=== PATIENT | female | born 1935 | race Caucasian/White ===

== ENCOUNTER 2018-04-26 13:17 | Emergency (ER) | payer MEDICARE, OTHER ==
--- NOTE | 2018-04-26 14:27 | ED ---
Hypertension - HPI Summary HPI Summary: This patient is a 82 year old F presenting to [facility] accompanied by and son with a chief complaint of progressively worsening lightheadedness, weakness , and fatigue for the past couple months with a systolic blood pressure over 200 this morning. She additionally reports palpitations last night while lying down described as irregular and fast lasting roughly an hour. reports weight loss of 20 pounds in the past 2 months with decreased PO intake. She reports recent changes in HTN medications with Dr. Hurley she took a Losartan and hydrochlorothiazide this morning. reports Dr. Hernandez is currently working her up for her elevated blood pressure recent increase in fatigue and weakness. Systolic blood pressure is typically in the 120s or 130s, but has been elevated for the past month. Patient denies recent rhinorrhea, cough, dysuria, and changes in BMs. Denies CP , SOB and abdominal pain currently and during palpitations. Reports increased urinary frequency due to hydrochlorothiazide. states triage nurse noticed right facial droop. Patient states the facial droop began this morning but is unsure of when. She states she went to bed at midnight and woke up today at 08:00. - History of Current Complaint Chief Complaint: EDGeneral Stated Complaint: HIGH BP Time Seen by Provider: 04/26/18 14:05 Hx Obtained From: Patient, Family/Remote Sensing Surveyor Onset/Duration: Started Weeks Ago Timing: Constant Reported Blood Pressure Prior To Arrival: 200 Alleviating Factor(s): Nothing Associated Signs & Symptoms: Weakness, Dizziness, Other: - fatigue, lightheaded , facial droop Current Medications: Diuretic - Allergies/Home Medications Allergies/Adverse Reactions: Allergies Allergy/AdvReac Type Severity Reaction Status Date / Time No Known Allergies Allergy Verified 01/21/18 13:35 Home Medications: Home Medications Losartan TAB* [Cozaar TAB*] 50 mg PO DAILY 04/26/18 [History Confirmed 04/26/18] Triamterene/HCTZ 37.5-25 MG* [Dyazide CAP*] 1 cap PO DAILY 04/26/18 [History Confirmed 04/26/18] PMH/Surg Hx/FS Hx/Imm Hx Endocrine/Hematology History: Denies: Hx Diabetes Cardiovascular History: Reports: Hx Angina, Hx Coronary Artery Disease, Hx Hypercholesterolemia, Hx Hypertension Denies: Hx Myocardial Infarction, Hx Pacemaker/ICD, Hx Valvular Heart Disease Respiratory History: Denies: Hx Asthma, Hx Chronic Obstructive Pulmonary Disease (COPD) History: Denies: Hx Dialysis, Hx Renal Disease Musculoskeletal History: Denies: Hx Rheumatoid Arthritis, Hx Osteoporosis Sensory History: Reports: Hx Hearing Aid Neurological History: Comment Only: Other Neuro Impairments/Disorders - HEADACHES/DIZZNESS LAST WEAK. BETTER NOW PER PT. Psychiatric History: Denies: Hx Panic Disorder - Surgical History Surgery Procedure, Year, and Place: HYSTERECTOMY. CATARACTS. TONSILS Infectious Disease History: No Infectious Disease History: Denies: Traveled Outside the [place] in Last 30 Days - Family History Known Family History: Negative: Diabetes - Social History Alcohol Use: Occasionally Alcohol Amount: occasional glass of wine Substance Use Type: Reports: None Smoking Status (MU): Never Smoked Tobacco Review of Systems Positive: Fatigue Cardiovascular: Other - elevated BP Positive: Palpitations. Negative: Chest Pain Negative: Shortness Of Breath Negative: Abdominal Pain Positive: frequency. Negative: dysuria Neurological: Other - facial droop Positive: Weakness All Other Systems Reviewed And Are Negative: Yes Physical Exam - Summary Physical Exam Summary: General: well-appearing, no pain distress Skin: warm, color reflects adequate perfusion, dry Head: normal Eyes: EOMI, JENNIFER ENT: normal Neck: supple, nontender Respiratory: CTA, breath sounds present Cardiovascular: RRR Abdomen: soft, nontender Bowel: present Musculoskeletal: normal, strength/ROM intact Neurological: sensory/motor intact, A&O x3 Angle of right mouth is lower the left mouth with smiling both sides react normally and symmetrically Psychological: affect/mood appropriate Triage Information Reviewed: Yes Vital Signs On Initial Exam: Initial Vitals Temp Pulse Resp BP Pulse Ox 98.4 F 62 16 197/86 97 04/26/18 13:22 04/26/18 13:22 04/26/18 13:22 04/26/18 13:22 04/26/18 13:22 Vital Signs Reviewed: Yes - Monica Coma Scale Best Eye Response: 4 - Spontaneous Best Motor Response: 6 - Obeys Commands Best Verbal Response: 5 - Oriented Coma Scale Total: 15 Diagnostics - Vital Signs Vital Signs Temp Pulse Resp BP Pulse Ox 04/26/18 13:22 98.4 F 62 16 197/86 97 - Laboratory Result Diagrams: 04/26/18 14:42 04/26/18 14:42 Lab Statement: Any lab studies that have been ordered have been reviewed, and results considered in the medical decision making process. - Radiology CXR Radiology Interpretation Completed By: Radiologist - Cardiomegaly and probable mild pulmonary vascular congestion. ED Physician has reviewed this report. - CT Brain CT CT Interpretation Completed By: Radiologist - #. No CT evidence for an acute intracranial process. #. Mild involutional change and stigmata of chronic small vessel ischemic disease. #. Unchanged LEFT frontal meningioma. ED physician has reviewed this report - EKG 1338 Cardiac Rate: NL - 64 BPM EKG Rhythm: Sinus Rhythm Ectopy: None EKG Interpretation: flipped T in III, flat T in aVF Re-Evaluation - Re-Evaluation First Re-Evaluation Time: 16:30 Comment: Patient and family informed of results. Hypertension Course/Dx - Course Course Of Treatment: PATIENT'S RT ANGLE OF MOUTH LOWER THAN LEFT NOTED IN TRIAGE. THE PATIENT AND FAMILY HAD NOT NOTED THIS. FACE SYMMETRIC MOVEMENTS WITHOUT NUMBNESS. NO NEUROLOGIC DEFICIT. DISCUSSED RESULTS WITH THE PATIENT AND FAMILY. THE PLAN IS TO ADD AMLODIPINE 10MG PO DAILY AND F/U PMD; RETURN TO THE ED IF WORSE. - Diagnoses Provider Diagnoses: Lightheadedness, Hypertension Discharge - Sign-Out/Discharge Documenting (check all that apply): Patient Departure - Discharge Plan Condition: Stable Disposition: HOME Prescriptions: Amlodipine Besylate [Norvasc 10 mg tab] 10 mg PO DAILY #30 tab Patient Education Materials: Amlodipine (By mouth), Hypertension (ED), Lightheadedness (ED) Referrals: Marvin Hernandez MD [Primary Care Provider] - Additional Instructions: FOLLOW UP WITH YOUR DOCTOR. GET RECHECKED FOR ANY WORSENING OF YOUR CONDITION OR QUESTIONS OR CONCERNS. - Billing Disposition and Condition Condition: STABLE Disposition: Home - Attestation Statements Document Initiated by Scribe: Yes Documenting Scribe: Annmarie Cardenas Provider For Whom Scribe is Documenting (Include Credential): Clinton Moran MD Scribe Attestation: Annmarie Hunt scribed for Clinton Moran MD on 04/26/18 at 1854. Scribe Documentation Reviewed: Yes Provider Attestation: The documentation as recorded by the Annmarie batista accurately reflects the service I personally performed and the decisions made by me, Clinton Moran MD
[2018-04-26 14:59] LABS: ABS Basophils 0.1 10^3/ul (0-0.2); ABS Eosinophils 0 10^3/ul (0-0.6); ABS Lymphocytes 0.9 10^3/ul (1.0-4.8); ABS Monocytes 0.3 10^3/ul (0-0.8); ABS Neutrophils 6.6 10^3/ul (1.5-7.7); ABS Nucleated RBC 0 10^3/ul; Eosinophil % 0.3 % (0-6); Hematocrit 44 % (35-47); Hemoglobin 15.3 g/dl (12.0-16.0); Lymphocyte % 11.4 % (25-47); Mean Corpuscular HGB Conc 35 g/dl (31-36); Mean Corpuscular Hemoglobin 32 pg (27-31); Mean Corpuscular Volume 94 fL (80-97); Mean Platelet Volume 7.6 um3 (7.4-10.4); Nucleated Red Blood Cells % 0; Platelet Count 253 10^3/ul (150-450); Red Blood Count 4.71 10^6/ul (4.00-5.40); Red Cell Distribution Width 14 % (10.5-15); White Blood Count 7.9 10^3/ul (3.5-10.8)
[2018-04-26 15:07] LABS: INR 0.89 (0.77-1.02)
[2018-04-26 15:11] LABS: EGFR Non-African American 74.8 (>60)
--- NOTE | 2018-04-26 15:23 | RAD ---
Indication: Lightheaded. Irregular heartbeat. Comparison: September 29, 2013 Technique: Sitting AP chest 1507 hours Report: Mild prominence of the interstitial markings. Costochondral calcifications noted. Cardiomegaly. Mild prominence of the central pulmonary vasculature. Unremarkable mediastinal contours. IMPRESSION: #. Cardiomegaly and probable mild pulmonary vascular congestion.
--- OUTSIDE RECORDS SUMMARY | 2018-04-26 15:27 | XMS REPORT ---
:1935 External Reference #:[id number] Author Organization [employer] Address [address] [facility] [place] [address] [place] [address] Phone [phone] Care Team Providers Name Role Phone Marvin Hernandez MD Primary Care Physician Unavailable Payers Type Date Identification Numbers Payment Provider Subscriber Medicare Primary Effective: Policy Number: Medicare Shazia Jj 1998 [id number] PayID: [id number] [address] [place] [address] [employer] Policy Number: [id number] [employer] Agency [facility] Shazia Jj Group Number: [id number] [address] [place] [address] Problems Date Description Provider Status Onset: 06/13/2011 Palpitations Melanie June D.O. Active Onset: 05/23/2012 Rheumatoid arthritis Everett Moise M.D. Active Onset: 05/23/2012 Medications Chicken Dresser (Current) Use Everett Moise M.D. Active Encounter Onset: 05/23/2012 Hypercortisolism Everett Moise M.D. Active Onset: 06/18/2012 Benign essential hypertension Melanie June D.O. Active Onset: 05/22/2013 Atrial fibrillation Gómez Marti M.D. Active Onset: 07/27/2014 Polymyalgia rheumatica Varun Jo M.D. Active Onset: 07/27/2014 Disorder of adrenal gland Varun Jo M.D. Active Onset: 07/27/2014 Myalgia & Myositis Unspec Varun Jo M.D. Active Onset: 01/14/2015 Taking medication Everett Moise M.D. Active Onset: 04/07/2015 Steroid Everett Moise M.D. Active Family History Date Family Member(s) Problem(s) Comments General Arthritis Father due to Stroke () Mother due to Stroke () Mother Arthritis Paternal Grandfather due to Diabetes () Maternal Grandmother due to Stroke () - age 42 yrs Social History Type Date Description Comments Marital Status Lives With ETOH Use Occasionally consumes alcohol Smoking Patient has never smoked Recreational Drug Use Denies Drug Use Daily Caffeine Consumes on average 1 cup of regular coffee espresso per day Exercise Type/Frequency Exercises rarely Allergies, Adverse Reactions, Alerts Date Description Reaction Status Severity Comments 03/06/2007 Penicillin active diarrhea 09/18/2011 Methotrexate 2 days of fatigue active 09/18/2011 Hydroxychloroquine gi upset active Medications Medication Date Status Form Strength Qnty SIG Indications Ordering Provider Prednisone Active Tablets 1mg take 4 M06.09 Zsofia 8 tablets once Michael, CHRONIC CARE NURSE daily for 4 weeks, then 3 tabs for 4 week, then continue 2 tablets once daily M35.3 Z79.52 Flecainide 04/16/2013 Active Tablets 50mg 60tabs 1 1/2 Gómez Valencia Acetate tablet po Mendoza Marti bid Atenolol 02/05/2013 Active Tablets 25mg 90tabs 1 tab daily Other Ordering Provider Ambien Active Tablets 10mg 30tabs 1 po qhs prn Unknown sleep insomnia Lipitor Active Tablets 20mg 90tabs 1 by mouth Unknown po qd Clonazepam Active Tablets 1mg 15tabs 1-2 tab at Unknown night Multiple Active Tablets 1 by mouth Unknown Vitamin every day (occasionall y) Triamterene/Hy Active Capsules 37.5-25m daily Unknown drochlorothiaz g markos [facility] Vuong Wort Active daily Unknown Enalapril 01/29/2018 - Hx Tablets 5mg 90tabs 1 by mouth I10 Gómez Valencia Maleate 03/09/2018 every day Mendoza Marti Meclizine HCL 01/22/2018 - Hx Tablets 25mg 14tabs 1 tab po qd R42 Lise 03/09/2018 prn (pt not Imani, using) N.P. Prednisone 09/30/2017 - Hx Tablets 1mg 5 mg po M06 Zsofia 03/10/2018 daily (pt is .09 Michael, CHRONIC CARE NURSE taking 7mg for the last 2 days 01/29/2018) M35.3 Z79.52 Prednisone 05/27/2017 - Hx Tablets 5mg 90tabs take 1 tab po M06.09 Catalinaofia Michael, 09/30/2017 tablets once CHRONIC CARE NURSE daily M35.3 Z79.52 Prednisone 03/25/2017 - Hx Tablets 1mg 4 tab by mouth M06.09 Catalinaofia Michael, 05/27/2017 every day for 4 CHRONIC CARE NURSE weeks then 3 tabs for 4 weeks, 2 tabs for 4 weeks as directed M35.3 Z79.52 Ergocalciferol 03/19/2016 - Hx Capsules [id number] 1 tab by mouth Catalinaofia 06/19/2016 every week KELVIN Rodriguez Prednisone 11/16/2015 - Hx Tablets 1mg 150t Take 4 tabs by [place] Pack 03/25/2017 abs mouth every 09 Deonna, other day M.D. alternating with 3 tabs every other day(taking 5 mg qd 06/19/16) M35.3 Z79.52 Ergocalciferol 11/11/2015 - Hx Capsules [id number] 8caps 1 tab by Zsofia 03/19/2016 mouth KELVIN Rodriguez weekly for 8 weeks (Not Taking) Prednisone 01/13/2014 - Hx Tablets 2.5mg 90tabs 1 by mouth 714. Varun 01/28/2015 every day 0 Mendoza Jo Cholestyramine 11/24/2013 - Hx Packet 4gm 20units 1 packet Everett 12/24/2013 twice a day Mendoza Moise x 1o days Leflunomide 11/11/2013 - Hx Tablets 10mg 30tabs 1 by mouth Everett 12/24/2013 every day Mendoza Moise Prednisone 10/28/2013 - Hx Tablets 1mg 240tabs 4 tablets M06. Clarissaa 11/16/2015 po daily 09 KELVIN Rodriguez M35.3 Z79.52 Prednisone 07/31/2013 - Hx Tablets 5mg 70tabs 1 po qd.. Warren 07/31/2013 Mendoza Moise Prednisone 07/31/2013 - Hx Tablets 2.5mg 60tabs 1 po bid [address] [place] [address] 10/28/2013 4. Mendoza Moise 0 Prednisone 05/05/2013 - Hx Tablets 2.5mg 30tabs 1 po qd [address] [place] [address] 07/31/2013 4. Mendoza Moise 0 Prednisone 11/04/2012 - Hx Tablets 1mg 120tabs [address] [place] [address] 07/31/2013 Daily 4. Mendoza Moise 0 Enalapril Maleate 11/03/2012 - Hx Tablets 10mg 3 po qd Other 02/05/2013 Ordering Provider Metoprolol Succinate 10/01/2012 - Hx Tablets ER 25mg 60tabs 1 tablet Melanie ER 11/03/2012 24HR in Am; 1/2 Shaylee (12.5mg) D.O. in PM daily Nortriptyline HCL 05/23/2012 - Hx Capsules 10mg 30caps 1 hour Warren 06/18/2012 before hs Mendoza Moise Prednisone 05/23/2012 - Hx Tablets 2.5mg 60tabs 1 po bid [address] [place] [address] 11/04/2012 4. Mendoza Moise 0 Metoprolol Tartrate 09/18/2011 - Hx Tablets 25mg 100tabs 1 tablet Melanie 10/01/2012 in Am; 2 Shaylee (50mg) D.O. tablets in PM Metoprolol Succinate 08/24/2011 - Hx Tablets ER 25mg 30tabs Take One Melanie ER 09/18/2011 24HR Tablet By Shaylee, Mouth D.O. Daily Prednisone 07/31/2011 - Hx Tablets 5mg 30tabs 1 qd Warren 12/28/2011 Mendoza Moise Hydroxychloroquine 07/31/2011 - Hx Tablets 200mg 60tabs 1 po bid Everett Sulfate 09/18/2011 Mendoza Moise Prednisone 04/05/2011 - Hx Tablets 1mg 168tabs 4 mg qd [address] [place] [address] 05/23/2012 4. Mendoza Moise 0 Methotrexate 02/22/2011 - Hx Tablets 2.5mg 48tabs 2 tabs 1x Everett 09/18/2011 per week Mendoza Moise Methotrexate 01/18/2011 - Hx Tablets 2.5mg 15tabs 3 tabs 1x Everett 02/22/2011 per week Mendoza Moise Zithromax 01/18/2011 - Hx Tablets 250mg 11tabs take 2 on Everett 02/21/2011 day 1, Mendoza Moise then 1 daily Methotrexate 11/14/2010 - Hx Tablets 2.5mg 30tabs 6 tabs 1x Everett 12/20/2010 per week Mendoza Moise Aspirin 09/22/2010 - Hx Tablets 81mg 1 po qd Melanie 12/20/2010 Ezequiel June Toprol XL 08/16/2010 - Hx Tablets ER 25mg 60tabs daily Melanie 08/24/2011 24HR Ezequiel June Toprol XL 07/26/2010 - Hx Tablets ER 25mg 60tabs 1 po bid Melanie 09/22/2010 24HR Ezequiel June Lipitor 03/06/2007 - Hx Tablets 10mg 30tabs 1 PO QHS Michael NancyKimberly 09/22/2010 Mendoza Louis Enalapril Maleate 03/06/2007 - Hx Tablets 30mg one po qd Michael Montoya 07/26/2010 Mendoza Louis Premarin 03/06/2007 - Hx Tablets 0.9mg 1/2 qod Michael Montoya 06/18/2012 Mendoza Louis Clonazepam 03/06/2007 - Hx Tablets 1mg 1 and 1/2 Michael Montoya 12/24/2013 PO qd Mendoza Louis Enalapril Maleate - Hx Tablets 20mg 3 tablets Unknown 11/03/2012 daily Aspirin - Hx Tablets 325mg 2 po qd Unknown 09/22/2010 prn Oxycodone HCL - Hx Tablets 10mg 45tabs 1 tablet Unknown 12/20/2010 po up to 6 tablets per day Prednisone - Hx Tablets 5mg 32tabs 1/2 tab 71 Everett 04/05/2011 bid 4. Mendoza Moise 0 Methotrexate - Hx Tablets 15mg 1 x per Unknown 11/14/2010 week Lipitor - Hx Tablets 10mg 30tabs 1 po qhs Unknown 12/24/2013 Calcium 500 +D - Hx Tablets 500-40 1 po qd Unknown 12/24/2013 0mg-Un it Ibandronate Sodium - Hx Tablets 150mg 3tabs po monthly M8 Unknown 12/31/2017 5. 9 Enalapril Maleate - Hx Tablets 20mg 90tabs 1 tabs po Unknown 03/24/2017 qd Ciprofloxacin HCL - Hx Tablets 500mg 1 tablet Unknown 05/27/2014 po bid x 10 day Hydrocodone - Hx as needed Unknown 08/09/2015 Triamterene/Hydrochlo - Hx Capsules 37.5-2 1 daily Unknown rothiazide 01/20/2018 5mg Minocycline HCL - Hx Capsules 100mg Unknown 03/24/2017 Calcium 500 - Hx Tablets 500-25 1 by mouth Unknown 04/29/2017 0-200m every day g-mg-U nit Doxycycline Hyclate - Hx Capsules 100mg one tablet Unknown 05/01/2017 twice daily for 10 days. Sulfamethoxazole/Trim - Hx Tablets 800-16 1 by mouth Unknown ethoprim DS 05/27/2017 0mg twice a day for three days (05/10/17) Medications Administered in Office Medication Date Status Form Strength Qnty SIG Indications Ordering Provider Inj, Administered Injection Ramone Regcesaroson 017 Deonna, 0.1 MG M.D. Inj, Administered Injection Gómez Valencia Regadenoson, 017 Mendoza Marti 0.1 MG Technetium TC Administered Injection Gómez Valencia 99M 017 Mendoza Marti Tetrofosmin, Per Unit Dose Up To 40 Millicuries PPD Administered Injection Everett 011 Mendoza Moise PPD Administered Injection Nurse Visit 011 RH Immunizations CPT Code Status Date Vaccine Lot # [id number] Given 05/31/2011 Afluria Vaccine [id number] Vital Signs Date Vital Result Comment 04/09/2018 Height 67 inches 5'7" Weight 142.00 lb Heart Rate 62 /min BP Systolic Sitting 120 mmHg Lue reg cuff BP Diastolic Sitting 74 mmHg Lue reg cuff BP Systolic Standing 126 mmHg Lue BP Diastolic Standing 80 mmHg Lue Respiratory Rate 16 /min BMI (Body Mass Index) 22.2 kg/m2 Ejection Fraction 60-65% as of 01/2016 echo 03/10/2018 Height 67 inches 5'7" Weight 146.00 lb Heart Rate 67 /min BP Systolic Sitting 138 mmHg BP Diastolic Sitting 78 mmHg Pain Level 0 O2 % BldC Oximetry 97 % BMI (Body Mass Index) 22.9 kg/m2 01/29/2018 Height 64 inches 5'4" Weight 147.00 lb with shoes Heart Rate 64 /min BP Systolic Sitting 172 mmHg Rue reg cuff BP Diastolic Sitting 100 mmHg Rue reg cuff BP Systolic Standing 166 mmHg Rue reg cuff BP Diastolic Standing 98 mmHg Rue reg cuff Respiratory Rate 18 /min BMI (Body Mass Index) 25.2 kg/m2 Ejection Fraction 60-65% 02/03/2016-echo 01/22/2018 Weight 146.25 lb Heart Rate 72 /min BP Systolic Sitting 158 mmHg BP Diastolic Sitting 86 mmHg Respiratory Rate 24 /min Body Temperature 97.7 F O2 % BldC Oximetry 97 % 12/31/2017 Weight 151.00 lb Heart Rate 63 /min BP Systolic Sitting 156 mmHg BP Diastolic Sitting 84 mmHg Respiratory Rate 14 /min Body Temperature 98.3 F O2 % BldC Oximetry 97 % 09/30/2017 Weight 158.00 lb Heart Rate 63 /min BP Systolic Sitting 121 mmHg BP Diastolic Sitting 72 mmHg Respiratory Rate 14 /min Pain Level 4 05/27/2017 Weight 160.38 lb Heart Rate 64 /min BP Systolic Sitting 130 mmHg BP Diastolic Sitting 70 mmHg Pain Level 5 O2 % BldC Oximetry 95 % 05/03/2017 Height 67 inches 5'7" Weight 160.00 lb Heart Rate 64 /min BP Systolic Sitting 128 mmHg Lue reg cuff BP Diastolic Sitting 78 mmHg Lue reg cuff BP Systolic Standing 122 mmHg Lue BP Diastolic Standing 68 mmHg Lue Respiratory Rate 16 /min BMI (Body Mass Index) 25.1 kg/m2 Ejection Fraction 60-65% 02/03/16 03/28/2017 Height 67 inches 5'7" Weight 163.00 lb with sandals Heart Rate 70 /min BP Systolic Sitting 136 mmHg Lue reg cuff BP Diastolic Sitting 76 mmHg Lue reg cuff BP Systolic Standing 130 mmHg Lue reg cuff BP Diastolic Standing 80 mmHg Lue reg cuff Respiratory Rate 17 /min BMI (Body Mass Index) 25.5 kg/m2 Ejection Fraction 60-65% 02/03/2016-echo 03/25/2017 Weight 161.50 lb Heart Rate 67 /min BP Systolic Sitting 120 mmHg BP Diastolic Sitting 62 mmHg Pain Level 7 O2 % BldC Oximetry 95 % 12/17/2016 Weight 159.00 lb Heart Rate 66 /min BP Systolic Sitting 124 mmHg BP Diastolic Sitting 80 mmHg Respiratory Rate 15 /min Pain Level 6 O2 % BldC Oximetry 97 % 07/13/2016 Height 67 inches 5'7" Weight 158.50 lb with shoes Heart Rate 76 /min BP Systolic Sitting 140 mmHg Lue reg cuff BP Diastolic Sitting 100 mmHg Lue reg cuff BP Systolic Standing 148 mmHg Lue reg cuff BP Diastolic Standing 102 mmHg Lue reg cuff Body Temperature 99.9 F BMI (Body Mass Index) 24.8 kg/m2 06/19/2016 Height 67 inches 5'7" Weight 159.00 lb Heart Rate 76 /min BP Systolic Sitting 120 mmHg BP Diastolic Sitting 78 mmHg Body Temperature 98.8 F Pain Level 5 BMI (Body Mass Index) 24.9 kg/m2 03/19/2016 Height 67 inches 5'7" Weight 156.25 lb Heart Rate 72 /min BP Systolic 130 mmHg BP Diastolic 86 mmHg Respiratory Rate 14 /min Body Temperature 98.4 F Pain Level 2 BMI (Body Mass Index) 24.5 kg/m2 01/20/2016 Height 67 inches 5'7" Weight 155.00 lb Heart Rate 68 /min BP Systolic Sitting 148 mmHg LA reg cuff BP Diastolic Sitting 88 mmHg LA reg cuff BP Systolic Standing 154 mmHg LA BP Diastolic Standing 90 mmHg LA Respiratory Rate 18 /min BMI (Body Mass Index) 24.3 kg/m2 Ejection Fraction 55% 12/11/12 11/16/2015 Height 67 inches 5'7" Weight 157.00 lb Heart Rate 72 /min BP Systolic Sitting 120 mmHg BP Diastolic Sitting 70 mmHg Pain Level 4 BMI (Body Mass Index) 24.6 kg/m2 08/09/2015 Height 67 inches 5'7" Weight 155.00 lb Heart Rate 80 /min BP Systolic Sitting 130 mmHg BP Diastolic Sitting 80 mmHg Body Temperature 99.0 F Pain Level 2 BMI (Body Mass Index) 24.3 kg/m2 07/15/2015 Height 67 inches 5'7" Weight 155.00 lb no shoes Heart Rate 68 /min BP Systolic Sitting 128 mmHg Ra, reg cuff BP Diastolic Sitting 72 mmHg Ra, reg cuff BP Systolic Standing 120 mmHg Ra BP Diastolic Standing 76 mmHg Ra Respiratory Rate 16 /min BMI (Body Mass Index) 24.3 kg/m2 04/07/2015 Height 67 inches 5'7" Weight 161.00 lb Heart Rate 68 /min BP Systolic Sitting 120 mmHg BP Diastolic Sitting 68 mmHg Pain Level 2 BMI (Body Mass Index) 25.2 kg/m2 01/28/2015 Height 67 inches 5'7" Weight 157.00 lb with shoes Heart Rate 70 /min reg with ectopy BP Systolic Sitting 130 mmHg LA reg cuff BP Diastolic Sitting 90 mmHg LA reg cuff BP Systolic Standing 132 mmHg LA regcuff BP Diastolic Standing 90 mmHg LA regcuff Respiratory Rate 17 /min BMI (Body Mass Index) 24.6 kg/m2 Ejection Fraction 55% date 12/11/12 01/14/2015 Height 67 inches 5'7" Weight 159.12 lb Heart Rate 64 /min BP Systolic Sitting 124 mmHg BP Diastolic Sitting 70 mmHg Respiratory Rate 14 /min Pain Level 6 BMI (Body Mass Index) 24.9 kg/m2 07/27/2014 Height 67 inches 5'7" Weight 159.75 lb Heart Rate 60 /min BP Systolic Sitting 110 mmHg BP Diastolic Sitting 62 mmHg Pain Level 6 BMI (Body Mass Index) 25.0 kg/m2 07/01/2014 Height 67 inches 5'7" Weight 154.00 lb without shoes Heart Rate 68 /min BP Systolic Sitting 140 mmHg Ra reg cuff BP Diastolic Sitting 90 mmHg Ra reg cuff BP Systolic Standing 140 mmHg Ra reg cuf f BP Diastolic Standing 92 mmHg Ra reg cuf f Respiratory Rate 16 /min BMI (Body Mass Index) 24.1 kg/m2 05/04/2014 Height 63.5 inches 5'3.50" Weight 158.00 lb Heart Rate 66 /min BP Systolic 130 mmHg BP Diastolic 80 mmHg Pain Level 7 BMI (Body Mass Index) 27.5 kg/m2 01/13/2014 Height 63.5 inches 5'3.50" Weight 152.00 lb Heart Rate 67 /min BP Systolic Sitting 120 mmHg BP Diastolic Sitting 64 mmHg BMI (Body Mass Index) 26.5 kg/m2 12/25/2013 Height 63.5 inches 5'3.50" Weight 156.00 lb Heart Rate 72 /min BP Systolic Sitting 144 mmHg Ra reg cuff BP Diastolic Sitting 94 mmHg Ra reg cuff BP Systolic Standing 142 mmHg Ra BP Diastolic Standing 90 mmHg Ra Respiratory Rate 16 /min BMI (Body Mass Index) 27.2 kg/m2 10/28/2013 Weight 157.00 lb Heart Rate 78 /min BP Systolic Sitting 140 mmHg BP Diastolic Sitting 70 mmHg 07/31/2013 BP Systolic 144 mmHg BP Diastolic 86 mmHg 07/31/2013 Height 64 inches 5'4" Weight 160.00 lb Heart Rate 78 /min BP Systolic Sitting 122 mmHg BP Diastolic Sitting 68 mmHg BMI (Body Mass Index) 27.5 kg/m2 05/22/2013 Height 64 inches 5'4" Weight 157.00 lb Heart Rate 80 /min BP Systolic Sitting 148 mmHg Ra reg cuff BP Diastolic Sitting 92 mmHg Ra reg cuff BP Systolic Standing 140 mmHg Ra BP Diastolic Standing 88 mmHg Ra Respiratory Rate 16 /min BMI (Body Mass Index) 26.9 kg/m2 05/05/2013 Height 63 inches 5'3" Weight 159.00 lb Heart Rate 60 /min BP Systolic Sitting 110 mmHg BP Diastolic Sitting 70 mmHg BMI (Body Mass Index) 28.2 kg/m2 02/05/2013 Height 63 inches 5'3" Weight 158.00 lb Heart Rate 78 /min BP Systolic Sitting 128 mmHg BP Diastolic Sitting 76 mmHg BMI (Body Mass Index) 28.0 kg/m2 11/04/2012 Height 63 inches 5'3" Weight 162.00 lb Heart Rate 81 /min BP Systolic Sitting 121 mmHg BP Diastolic Sitting 76 mmHg BMI (Body Mass Index) 28.7 kg/m2 11/03/2012 Height 63 inches 5'3" Weight 162.25 lb Heart Rate 98 /min Regular BP Systolic Sitting 110 mmHg BP Diastolic Sitting 80 mmHg BMI (Body Mass Index) 28.7 kg/m2 10/01/2012 Height 63 inches 5'3" Weight 161.00 lb Heart Rate 78 /min BP Systolic Sitting 140 mmHg BP Diastolic Sitting 80 mmHg BMI (Body Mass Index) 28.5 kg/m2 09/24/2012 Height 63 inches 5'3" Weight 161.25 lb Heart Rate 70 /min Regular BP Systolic Sitting 110 mmHg BP Diastolic Sitting 70 mmHg BMI (Body Mass Index) 28.6 kg/m2 06/18/2012 Height 63 inches 5'3" Weight 162.00 lb Heart Rate 76 /min Regular BP Systolic Sitting 130 mmHg BP Diastolic Sitting 72 mmHg BMI (Body Mass Index) 28.7 kg/m2 05/23/2012 Height 63 inches 5'3" Weight 163.00 lb Heart Rate 74 /min BP Systolic Sitting 121 mmHg BP Diastolic Sitting 73 mmHg BMI (Body Mass Index) 28.9 kg/m2 12/28/2011 Height 63 inches 5'3" Weight 158.00 lb Heart Rate 79 /min BP Systolic Sitting 126 mmHg BP Diastolic Sitting 78 mmHg BMI (Body Mass Index) 28.0 kg/m2 11/09/2011 Height 63 inches 5'3" Weight 159.00 lb Heart Rate 76 /min BP Systolic Sitting 121 mmHg BP Diastolic Sitting 64 mmHg BMI (Body Mass Index) 28.2 kg/m2 09/18/2011 Weight 164.00 lb Heart Rate 82 /min BP Systolic 126 mmHg BP Diastolic 80 mmHg 07/31/2011 Height 64 inches 5'4" Weight 160.00 lb BP Systolic Sitting 122 mmHg BP Diastolic Sitting 73 mmHg BMI (Body Mass Index) 27.5 kg/m2 06/13/2011 Height 64 inches 5'4" Weight 161.00 lb Heart Rate 78 /min BP Systolic 132 mmHg BP Diastolic 84 mmHg BMI (Body Mass Index) 27.6 kg/m2 05/31/2011 Weight 160.00 lb Heart Rate 80 /min BP Systolic 100 mmHg BP Diastolic 70 mmHg 04/05/2011 Weight 160.00 lb Heart Rate 76 /min BP Systolic 120 mmHg BP Diastolic 80 mmHg 02/22/2011 Weight 159.00 lb Heart Rate 84 /min BP Systolic 120 mmHg BP Diastolic 72 mmHg 01/18/2011 Weight 161.00 lb Heart Rate 78 /min BP Systolic 124 mmHg BP Diastolic 72 mmHg 12/21/2010 Height 64 inches 5'4" Weight 158.00 lb Heart Rate 78 /min BP Systolic 134 mmHg BP Diastolic 84 mmHg BMI (Body Mass Index) 27.1 kg/m2 11/14/2010 Height 64 inches 5'4" Weight 153.00 lb Heart Rate 70 /min BP Systolic 130 mmHg BP Diastolic 84 mmHg BMI (Body Mass Index) 26.3 kg/m2 09/22/2010 Height 64 inches 5'4" Weight 154.25 lb Heart Rate 70 /min BP Systolic 120 mmHg BP Diastolic 80 mmHg Respiratory Rate 16 /min BMI (Body Mass Index) 26.5 kg/m2 08/16/2010 Height 64 inches 5'4" Weight 156.00 lb Heart Rate 74 /min BP Systolic Sitting 140 mmHg rechecked 134/88 BP Diastolic Sitting 100 mmHg rechecked 134/88 BP Systolic Standing 132 mmHg BP Diastolic Standing 84 mmHg BMI (Body Mass Index) 26.8 kg/m2 07/26/2010 Height 64 inches 5'4" Weight 155.00 lb Heart Rate 94 /min BP Systolic 110 mmHg BP Diastolic 80 mmHg BP Systolic Sitting 120 mmHg BP Diastolic Sitting 80 mmHg BP Systolic Standing 120 mmHg BP Diastolic Standing 82 mmHg Respiratory Rate 18 /min BMI (Body Mass Index) 26.6 kg/m2 03/06/2007 Height 64 inches 5'4" Weight 153.00 lb Heart Rate 77 /min BP Systolic Sitting 120 mmHg L BP Diastolic Sitting 80 mmHg L BMI (Body Mass Index) 26.3 kg/m2 Results Test Date Test Result H/L Range Note Basic Metabolic Panel 01/27/2018 Sodium 136 mmol/L Low 139-145 1 Potassium 3.8 mmol/L 3.5-5.0 1 Chloride 97 mmol/L Low 101-111 1 Co2 Carbon Dioxide 28 mmol/L 22-32 1 Anion Gap 11 mmol/L 2-11 1 Glucose 90 mg/dL 70-100 1 Blood Urea Nitrogen 15 mg/dL 6-24 1 Creatinine 0.95 mg/dL 0.51-0.95 1 BUN/Creatinine Ratio 15.8 8-20 1 Calcium 9.3 mg/dL 8.6-10.3 1 Egfr Non- 56.0 >60 1 Egfr 72.1 >60 1, 2 Laboratory test finding 09/30/2017 TSH (Thyroid Stim Horm) 2.46 mcIU/mL 0.34-5.60 Vitamin B12 322 pg/mL 180-914 3 Vitamin D Total 25(Oh) 19.5 ng/mL Low 20-50 CBC Auto Diff 09/30/2017 White Blood Count 8.9 10^3/uL 3.5-10.8 Red Blood Count 4.55 10^6/uL 4.0-5.4 Hemoglobin 14.8 g/dL 12.0-16.0 Hematocrit 42 % 35-47 Mean Corpuscular Volume 93 fL 80-97 Mean Corpuscular Hemoglobin 33 pg High 27-31 Mean Corpuscular HGB Conc 35 g/dL 31-36 Red Cell Distribution Width 14 % 10.5-15 Platelet Count 240 10^3/uL 150-450 Mean Platelet Volume 8 um3 7.4-10.4 Abs Neutrophils 6.3 10^3/uL 1.5-7.7 Abs Lymphocytes 1.7 10^3/uL 1.0-4.8 Abs Monocytes 0.8 10^3/uL 0-0.8 Abs Eosinophils 0.1 10^3/uL 0-0.6 Abs Basophils 0.1 10^3/uL 0-0.2 Abs Nucleated RBC 0 10^3/uL Granulocyte % 70.5 % 38-83 Lymphocyte % 19.4 % Low 25-47 Monocyte % 8.6 % 1-9 Eosinophil % 0.9 % 0-6 Basophil % 0.6 % 0-2 Nucleated Red Blood Cells % 0 Comp Metabolic Panel 09/30/2017 Sodium 133 mmol/L 133-145 Potassium 3.8 mmol/L 3.5-5.0 Chloride 94 mmol/L Low 101-111 Co2 Carbon Dioxide 34 mmol/L High 22-32 Anion Gap 5 mmol/L 2-11 Glucose 95 mg/dL 70-100 Blood Urea Nitrogen 14 mg/dL 6-24 Creatinine 1.05 mg/dL High 0.51-0.95 BUN/Creatinine Ratio 13.3 8-20 Calcium 9.2 mg/dL 8.6-10.3 Total Protein 5.8 g/dL Low 6.4-8.9 Albumin 3.8 g/dL 3.2-5.2 Globulin 2.0 g/dL 2-4 Albumin/Globulin Ratio 1.9 1-3 Total Bilirubin 0.40 mg/dL 0.2-1.0 Alkaline Phosphatase 42 U/L 34-104 Alt 12 U/L 7-52 Ast 16 U/L 13-39 Egfr Non- 49.9 >60 Egfr 64.2 >60 4 Laboratory test finding 09/30/2017 C Reactive Protein 1.28 mg/L < 5.00 5 Erythrocyte Sed Rate 8 mm/Hr 0-40 CBC Auto Diff 03/25/2017 White Blood Count 10.5 10^3/uL 3.5-10.8 6 Red Blood Count 4.77 10^6/uL 4.0-5.4 6 Hemoglobin 15.4 g/dL 12.0-16.0 6 Hematocrit 45 % 35-47 6 Mean Corpuscular Volume 95 fL 80-97 6 Mean Corpuscular Hemoglobin 32 pg High 27-31 6 Mean Corpuscular HGB Conc 34 g/dL 31-36 6 Red Cell Distribution Width 14 % 10.5-15 6 Platelet Count 252 10^3/uL 150-450 6 Mean Platelet Volume 8 um3 7.4-10.4 6 Abs Neutrophils 8.4 10^3/uL High 1.5-7.7 6 Abs Lymphocytes 1.3 10^3/uL 1.0-4.8 6 Abs Monocytes 0.5 10^3/uL 0-0.8 6 Abs Eosinophils 0.1 10^3/uL 0-0.6 6 Abs Basophils 0.1 10^3/uL 0-0.2 6 Abs Nucleated RBC 0 10^3/uL 6 Granulocyte % 80.0 % 38-83 6 Lymphocyte % 12.7 % Low 25-47 6 Monocyte % 5.2 % 1-9 6 Eosinophil % 0.7 % 0-6 6 Basophil % 1.4 % 0-2 6 Nucleated Red Blood Cells % 0 6 Comp Metabolic Panel 03/25/2017 Sodium 133 mmol/L 133-145 6 Potassium 4.1 mmol/L 3.5-5.0 6 Chloride 94 mmol/L Low 101-111 6 Co2 Carbon Dioxide 31 mmol/L 22-32 6 Anion Gap 8 mmol/L 2-11 6 Glucose 86 mg/dL 70-100 6 Blood Urea Nitrogen 14 mg/dL 6-24 6 Creatinine 0.83 mg/dL 0.51-0.95 6 BUN/Creatinine Ratio 16.9 8-20 6 Calcium 9.5 mg/dL 8.6-10.3 6 Total Protein 6.2 g/dL Low 6.4-8.9 6 Albumin 4.0 g/dL 3.2-5.2 6 Globulin 2.2 g/dL 2-4 6 Albumin/Globulin Ratio 1.8 1-3 6 Total Bilirubin 0.60 mg/dL 0.2-1.0 6 Alkaline Phosphatase 57 U/L 34-104 6 Alt 18 U/L 7-52 6 Ast 22 U/L 13-39 6 Egfr Non- 65.7 >60 6 Egfr 84.4 >60 6, 7 Laboratory test finding 03/25/2017 C Reactive Protein 1.82 mg/L < 5.00 6 , 8 Erythrocyte Sed Rate 8 mm/Hr 0-40 6, 9 Laboratory test 12/12/2016 TSH (Thyroid Stim 5.92 mcIU/mL High 0.34-5.60 10, 11 finding Horm) Vitamin D Total 25(Oh) 25.6 ng/mL Low 30-50 10, 12 Liver Function Panel 12/12/2016 Total Protein 5.8 g/dL Low 6.4-8.9 10 Albumin 3.9 g/dL 3.2-5.2 10 Globulin 1.9 g/dL Low 2-4 10 Albumin/Globulin Ratio 2.1 1-3 10 Total Bilirubin 0.60 mg/dL 0.2-1.0 10 Direct Bilirubin 0.10 mg/dL 0.03-0.18 10 Indirect Bilirubin 0.5 mg/dL 0.3-1.0 10 Alkaline Phosphatase 50 U/L 34-104 10 Alt 14 U/L 7-52 10 Ast 19 U/L 13-39 10 Lipid Profile (Trig/Chol/HDL) 12/12/2016 Triglycerides 66 mg/dL 10, 13 Cholesterol 175 mg/dL 10, 14 HDL Cholesterol 71.6 mg/dL 10, 15 LDL Cholesterol 90 mg/dL 10, 16 Laboratory test finding 12/12/2016 C Reactive Protein 1.26 mg/L < 5.00 10, 17 Erythrocyte Sed Rate 7 mm/Hr 0-40 10, 18 Comp Metabolic Panel 12/12/2016 Sodium 136 mmol/L 133-145 10 Potassium 3.5 mmol/L 3.5-5.0 10 Chloride 99 mmol/L Low 101-111 10 Co2 Carbon Dioxide 31 mmol/L 22-32 10 Anion Gap 6 mmol/L 2-11 10 Glucose 78 mg/dL 70-100 10 Blood Urea Nitrogen 14 mg/dL 6-24 10 Creatinine 0.81 mg/dL 0.51-0.95 10 BUN/Creatinine Ratio 17.3 8-20 10 Calcium 8.9 mg/dL 8.6-10.3 10 Total Protein 5.8 g/dL Low 6.4-8.9 10 Albumin 3.9 g/dL 3.2-5.2 10 Globulin 1.9 g/dL Low 2-4 10 Albumin/Globulin Ratio 2.1 1-3 10 Total Bilirubin 0.60 mg/dL 0.2-1.0 10 Alkaline Phosphatase 51 U/L 34-104 10 Alt 13 U/L 7-52 10 Ast 19 U/L 13-39 10 Egfr Non- 67.5 >60 10 Egfr 86.8 >60 10, 19 CBC Auto Diff 12/12/2016 White Blood Count 8.7 10^3/uL 3.5-10.8 10 Red Blood Count 4.72 10^6/uL 4.0-5.4 10 Hemoglobin 14.6 g/dL 12.0-16.0 10 Hematocrit 44 % 35-47 10 Mean Corpuscular Volume 93 fL 80-97 10 Mean Corpuscular Hemoglobin 31 pg 27-31 10 Mean Corpuscular HGB Conc 33 g/dL 31-36 10 Red Cell Distribution Width 15 % 10.5-15 10 Platelet Count 208 10^3/uL 150-450 10 Mean Platelet Volume 9 um3 7.4-10.4 10 Abs Neutrophils 5.6 10^3/uL 1.5-7.7 10 Abs Lymphocytes 2.1 10^3/uL 1.0-4.8 10 Abs Monocytes 0.7 10^3/uL 0-0.8 10 Abs Eosinophils 0.2 10^3/uL 0-0.6 10 Abs Basophils 0.1 10^3/uL 0-0.2 10 Abs Nucleated RBC 0 10^3/uL 10 Granulocyte % 64.0 % 38-83 10 Lymphocyte % 24.3 % Low 25-47 10 Monocyte % 8.1 % 1-9 10 Eosinophil % 2.7 % 0-6 10 Basophil % 0.9 % 0-2 10 Nucleated Red Blood Cells % 0 10 Laboratory test finding 06/15/2016 Erythrocyte Sed Rate 9 mm/Hr 0-40 20 , 21 CBC Auto Diff 06/15/2016 White Blood Count 9.6 10^3/uL 3.5-10.8 20 Red Blood Count 4.67 10^6/uL 4.0-5.4 20 Hemoglobin 14.5 g/dL 12.0-16.0 20 Hematocrit 43 % 35-47 20 Mean Corpuscular Volume 93 fL 80-97 20 Mean Corpuscular Hemoglobin 31 pg 27-31 20 Mean Corpuscular HGB Conc 33 g/dL 31-36 20 Red Cell Distribution Width 14 % 10.5-15 20 Platelet Count 234 10^3/uL 150-450 20 Mean Platelet Volume 9 um3 7.4-10.4 20 Abs Neutrophils 7.2 10^3/uL 1.5-7.7 20 Abs Lymphocytes 1.4 10^3/uL 1.0-4.8 20 Abs Monocytes 0.8 10^3/uL 0-0.8 20 Abs Eosinophils 0.2 10^3/uL 0-0.6 20 Abs Basophils 0.1 10^3/uL 0-0.2 20 Abs Nucleated RBC 0.01 10^3/uL 20 Granulocyte % 75.0 % 38-83 20 Lymphocyte % 14.3 % Low 25-47 20 Monocyte % 8.0 % 1-9 20 Eosinophil % 2.1 % 0-6 20 Basophil % 0.6 % 0-2 20 Nucleated Red Blood Cells % 0.1 20 Laboratory test finding 06/15/2016 C Reactive Protein 1.74 mg/L < 5.00 20, 22 Comp Metabolic Panel 06/15/2016 Sodium 139 mmol/L 133-145 20 Potassium 4.0 mmol/L 3.5-5.0 20 Chloride 103 mmol/L 101-111 20 Co2 Carbon Dioxide 31 mmol/L 22-32 20 Anion Gap 5 mmol/L 2-11 20 Glucose 75 mg/dL 70-100 20 Blood Urea Nitrogen 13 mg/dL 6-24 20 Creatinine 0.88 mg/dL 0.51-0.95 20 BUN/Creatinine Ratio 14.8 8-20 20 Calcium 9.0 mg/dL 8.6-10.3 20 Total Protein 5.7 g/dL Low 6.4-8.9 20 Albumin 3.8 g/dL 3.2-5.2 20 Globulin 1.9 g/dL Low 2-4 20 Albumin/Globulin Ratio 2.0 1-3 20 Total Bilirubin 0.40 mg/dL 0.2-1.0 20 Alkaline Phosphatase 48 U/L 34-104 20 Alt 13 U/L 7-52 20 Ast 18 U/L 13-39 20 Egfr Non- 61.5 >60 20 Egfr 79.1 >60 20, 23 Laboratory test finding 02/02/2016 Erythrocyte Sed Rate 8 mm/Hr 0-40 24 , 25 CBC Auto Diff 02/02/2016 White Blood Count 6.1 10^3/uL 3.5-10.8 24 Red Blood Count 4.97 10^6/uL 4.0-5.4 24 Hemoglobin 15.3 g/dL 12.0-16.0 24 Hematocrit 46 % 35-47 24 Mean Corpuscular Volume 92 fL 80-97 24 Mean Corpuscular Hemoglobin 31 pg 27-31 24 Mean Corpuscular HGB Conc 34 g/dL 31-36 24 Red Cell Distribution Width 14 % 10.5-15 24 Platelet Count 206 10^3/uL 150-450 24 Mean Platelet Volume 8 um3 7.4-10.4 24 Abs Neutrophils 3.4 10^3/uL 1.5-7.7 24 Abs Lymphocytes 2.0 10^3/uL 1.0-4.8 24 Abs Monocytes 0.5 10^3/uL 0-0.8 24 Abs Eosinophils 0.1 10^3/uL 0-0.6 24 Abs Basophils 0.1 10^3/uL 0-0.2 24 Abs Nucleated RBC 0 10^3/uL 24 Granulocyte % 54.7 % 38-83 24 Lymphocyte % 33.0 % 25-47 24 Monocyte % 8.9 % 1-9 24 Eosinophil % 2.0 % 0-6 24 Basophil % 1.4 % 0-2 24 Nucleated Red Blood Cells % 0.1 24 Laboratory test finding 02/02/2016 C Reactive Protein 1.45 mg/L < 5.00 24, 26 Vitamin D Total 25(Oh) 35.8 ng/mL 30-50 24, 27 Basic Metabolic Panel 02/02/2016 Sodium 138 mmol/L 133-145 24 Potassium 3.8 mmol/L 3.5-5.0 24 Chloride 103 mmol/L 101-111 24 Co2 Carbon Dioxide 30 mmol/L 22-32 24 Anion Gap 5 mmol/L 2-11 24 Glucose 87 mg/dL 70-100 24 Blood Urea Nitrogen 13 mg/dL 6-24 24 Creatinine 0.83 mg/dL 0.51-0.95 24 BUN/Creatinine Ratio 15.7 8-20 24 Calcium 9.2 mg/dL 8.6-10.3 24 Egfr Non- 65.8 >60 24 Egfr 84.6 >60 24, 28 Comp Metabolic Panel 11/10/2015 Sodium 139 mmol/L 133-145 Potassium 4.3 mmol/L 3.5-5.0 Chloride 102 mmol/L 101-111 Co2 Carbon Dioxide 30 mmol/L 22-32 Anion Gap 7 mmol/L 2-11 Glucose 109 mg/dL High 70-100 Blood Urea Nitrogen 14 mg/dL 6-24 Creatinine 0.81 mg/dL 0.51-0.95 BUN/Creatinine Ratio 17.3 8-20 Calcium 9.6 mg/dL 8.6-10.3 Total Protein 6.2 g/dL Low 6.4-8.9 Albumin 4.1 g/dL 3.2-5.2 Globulin 2.1 g/dL 2-4 Albumin/Globulin Ratio 2.0 1-3 Total Bilirubin 0.40 mg/dL 0.2-1.0 Alkaline Phosphatase 62 U/L 34-104 Alt 13 U/L 7-52 Ast 19 U/L 13-39 Egfr Non- 67.7 >60 Egfr 87.1 >60 29 Laboratory test finding 11/10/2015 C Reactive Protein 6.87 mg/L High < 5.00 30 Vitamin D Total 25(Oh) 24.7 ng/mL Low 30-50 CBC Auto Diff 11/10/2015 White Blood Count 9.9 10^3/uL 3.5-10.8 Red Blood Count 4.87 10^6/uL 4.0-5.4 Hemoglobin 15.0 g/dL 12.0-16.0 Hematocrit 45 % 35-47 Mean Corpuscular Volume 93 fL 80-97 Mean Corpuscular Hemoglobin 31 pg 27-31 Mean Corpuscular HGB Conc 33 g/dL 31-36 Red Cell Distribution Width 14 % 10.5-15 Platelet Count 232 10^3/uL 150-450 Mean Platelet Volume 9 um3 7.4-10.4 Abs Neutrophils 8.2 10^3/uL High 1.5-7.7 Abs Lymphocytes 1.2 10^3/uL 1.0-4.8 Abs Monocytes 0.4 10^3/uL 0-0.8 Abs Eosinophils 0 10^3/uL 0-0.6 Abs Basophils 0.1 10^3/uL 0-0.2 Abs Nucleated RBC 0 10^3/uL Granulocyte % 83.2 % High 38-83 Lymphocyte % 11.8 % Low 25-47 Monocyte % 4.0 % 1-9 Eosinophil % 0.4 % 0-6 Basophil % 0.6 % 0-2 Nucleated Red Blood Cells % 0 Laboratory test finding 11/10/2015 Erythrocyte Sed Rate 14 mm/Hr 0-40 Urine Culture And 11/10/2015 Urine Culture SEE RESULT BELOW 31 Sensitivities Laboratory test finding 07/13/2015 C Reactive Protein 2.45 mg/L < 5.00 32 Erythrocyte Sed Rate 12 mm/Hr 0-40 Immunoglobulins Serum Quant 07/13/2015 Immunoglobulin G 558 mg/dL 767 - 1590 33 Immunoglobulin M 62 mg/dL 37 - 286 Immunoglobulin A 130 mg/dL 61 - 356 Comp Metabolic Panel 07/13/2015 Sodium 132 mmol/L Low 133-145 Potassium 4.2 mmol/L 3.5-5.0 Chloride 97 mmol/L Low 101-111 Co2 Carbon Dioxide 29 mmol/L 22-32 Anion Gap 6 mmol/L 2-11 Glucose 143 mg/dL High 70-100 Blood Urea Nitrogen 16 mg/dL 6-24 Creatinine 0.81 mg/dL 0.51-0.95 BUN/Creatinine Ratio 19.8 8-20 Calcium 9.1 mg/dL 8.6-10.3 Total Protein 5.9 g/dL Low 6.4-8.9 Albumin 3.8 g/dL 3.2-5.2 Globulin 2.1 g/dL 2-4 Albumin/Globulin Ratio 1.8 1-3 Total Bilirubin 0.40 mg/dL 0.2-1.0 Alkaline Phosphatase 53 U/L 34-104 Alt 13 U/L 7-52 Ast 18 U/L 13-39 Egfr Non- 67.7 >60 Egfr 87.1 >60 34 CBC Auto Diff 07/13/2015 White Blood Count 7.9 10^3/uL 4.8-10.8 Red Blood Count 4.66 10^6/uL 4.0-5.4 Hemoglobin 14.6 g/dL 12.0-16.0 Hematocrit 44 % 35-47 Mean Corpuscular Volume 94 fL 80-97 Mean Corpuscular Hemoglobin 31 pg 27-31 Mean Corpuscular HGB Conc 33 g/dL 31-36 Red Cell Distribution Width 14 % 10.5-15 Platelet Count 255 10^3/uL 150-450 Mean Platelet Volume 9 um3 7.4-10.4 Abs Neutrophils 5.8 10^3/uL 1.5-7.7 Abs Lymphocytes 1.4 10^3/uL 1.0-4.8 Abs Monocytes 0.5 10^3/uL 0-0.8 Abs Eosinophils 0.1 10^3/uL 0-0.6 Abs Basophils 0.1 10^3/uL 0-0.2 Abs Nucleated RBC 0 10^3/uL Granulocyte % 73.1 % 38-83 Lymphocyte % 18.0 % Low 25-47 Monocyte % 6.3 % 1-9 Eosinophil % 1.1 % 0-6 Basophil % 1.5 % 0-2 Nucleated Red Blood Cells % 0 CBC Auto Diff 01/31/2015 White Blood Count 6.0 10^3/uL 4.8-10.8 Red Blood Count 4.82 10^6/uL 4.0-5.4 Hemoglobin 15.0 g/dL 12.0-16.0 Hematocrit 45 % 35-47 Mean Corpuscular Volume 94 fL 80-97 Mean Corpuscular Hemoglobin 31 pg 27-31 Mean Corpuscular HGB Conc 33 g/dL 31-36 Red Cell Distribution Width 14 % 10.5-15 Platelet Count 228 10^3/uL 150-450 Mean Platelet Volume 8 um3 7.4-10.4 Abs Neutrophils 3.0 10^3/uL 1.5-7.7 Abs Lymphocytes 2.3 10^3/uL 1.0-4.8 Abs Monocytes 0.5 10^3/uL 0-0.8 Abs Eosinophils 0.1 10^3/uL 0-0.6 Abs Basophils 0.1 10^3/uL 0-0.2 Abs Nucleated RBC 0.01 10^3/uL Granulocyte % 50.0 % 38-83 Lymphocyte % 38.2 % 25-47 Monocyte % 8.7 % 1-9 Eosinophil % 2.2 % 0-6 Basophil % 0.9 % 0-2 Nucleated Red Blood Cells % 0.1 Comp Metabolic Panel 01/31/2015 Sodium 138 mmol/L 133-145 Potassium 3.9 mmol/L 3.5-5.0 Chloride 104 mmol/L 101-111 Co2 Carbon Dioxide 30 mmol/L 22-32 Anion Gap 4 mmol/L 2-11 Glucose 84 mg/dL 70-100 Blood Urea Nitrogen 16 mg/dL 6-24 Creatinine 0.82 mg/dL 0.51-0.95 BUN/Creatinine Ratio 19.5 8-20 Calcium 9.0 mg/dL 8.6-10.3 Total Protein 5.9 g/dL Low 6.4-8.9 Albumin 3.9 g/dL 3.2-5.2 Globulin 2.0 g/dL 2-4 Albumin/Globulin Ratio 2.0 1-3 Total Bilirubin 0.60 mg/dL 0.2-1.0 Alkaline Phosphatase 58 U/L 34-104 Alt 14 U/L 7-52 Ast 17 U/L 13-39 Egfr Non- 66.9 >60 Egfr 86.0 >60 35 Laboratory test finding 01/31/2015 C Reactive Protein 2.09 mg/L < 5.00 36 Erythrocyte Sed Rate 8 mm/Hr 0-40 Aditi (Antinuclear Antibodies) Negative Negative Velma Screen Negative Negative 37 Anti Dna (Double Stranded Dna) Negative Negative Immunoglobulins Serum Quant 01/31/2015 Immunoglobulin G 618 mg/dL 767 - 1590 38 Immunoglobulin M 95 mg/dL 37 - 286 Immunoglobulin A 125 mg/dL 61 - 356 Laboratory test finding 01/31/2015 Rheumatoid Factor <15 IU/mL <15 39 Cyclic Citrullinated Pep Igg <15.6 U 40 CBC No Diff 12/25/2014 White Blood Count 5.9 10^3/uL 4.8-10.8 Red Blood Count 4.83 10^6/uL 4.0-5.4 Hemoglobin 15.4 g/dL 12.0-16.0 Hematocrit 45 % 35-47 Mean Corpuscular Volume 94 fL 80-97 Mean Corpuscular Hemoglobin 32 pg High 27-31 Mean Corpuscular HGB Conc 34 g/dL 31-36 Red Cell Distribution Width 14 % 10.5-15 Platelet Count 231 10^3/uL 150-450 Mean Platelet Volume 8 um3 7.4-10.4 Laboratory test finding 12/25/2014 Erythrocyte Sed Rate 9 mm/Hr 0-40 Comp Metabolic Panel 12/25/2014 Sodium 139 mmol/L 133-145 Potassium 3.9 mmol/L 3.5-5.0 Chloride 103 mmol/L 101-111 Co2 Carbon Dioxide 31 mmol/L 22-32 Anion Gap 5 mmol/L 2-11 Glucose 88 mg/dL 70-100 Blood Urea Nitrogen 13 mg/dL 6-24 Creatinine 0.82 mg/dL 0.51-0.95 BUN/Creatinine Ratio 15.9 8-20 Calcium 9.0 mg/dL 8.6-10.3 Total Protein 5.7 g/dL Low 6.4-8.9 Albumin 3.9 g/dL 3.2-5.2 Globulin 1.8 g/dL Low 2-4 Albumin/Globulin Ratio 2.2 1-3 Total Bilirubin 0.60 mg/dL 0.2-1.0 Alkaline Phosphatase 52 U/L 34-104 Alt 13 U/L 7-52 Ast 19 U/L 13-39 Egfr Non- 66.9 >60 Egfr 86.0 >60 41 Laboratory test finding 12/25/2014 Cortisol 15.96 g/dL 42 C Reactive Protein 2.32 mg/L < 5.00 43 Acth 67 pg/mL 44 Laboratory test finding 06/15/2014 Erythrocyte Sed Rate 15 mm/Hr 0-40 CBC Auto Diff 06/15/2014 White Blood Count 7.4 10^3/uL 4.8-10.8 Red Blood Count 4.87 10^6/uL 4.0-5.4 Hemoglobin 15.1 g/dL 12.0-16.0 Hematocrit 45 % 35-47 Mean Corpuscular Volume 93 fL 80-97 Mean Corpuscular Hemoglobin 31 pg 27-31 Mean Corpuscular HGB Conc 34 g/dL 31-36 Red Cell Distribution Width 14 % 10.5-15 Platelet Count 264 10^3/uL 150-450 Mean Platelet Volume 8 um3 7.4-10.4 Abs Neutrophils 4.0 10^3/uL 1.5-7.7 Abs Lymphocytes 2.6 10^3/uL 1.0-4.8 Abs Monocytes 0.6 10^3/uL 0-0.8 Abs Eosinophils 0.2 10^3/uL 0-0.6 Abs Basophils 0.1 10^3/uL 0-0.2 Abs Nucleated RBC 0.01 10^3/uL Granulocyte % 53.4 % 38-83 Lymphocyte % 35.1 % 25-47 Monocyte % 8.1 % 1-9 Eosinophil % 2.4 % 0-6 Basophil % 1.0 % 0-2 Nucleated Red Blood Cells % 0.1 Laboratory test finding 06/15/2014 C Reactive Protein 8.86 mg/L High < 5.00 45 Lipid Profile (Trig/Chol/HDL) 06/15/2014 Triglycerides 87 mg/dL 46 Cholesterol 201 mg/dL 47 HDL Cholesterol 55.2 mg/dL 48 LDL Cholesterol 128 mg/dL 49 Comp Metabolic Panel 06/15/2014 Sodium 139 mmol/L 133-145 Potassium 3.9 mmol/L 3.7-5.6 Chloride 105 mmol/L 101-111 Co2 Carbon Dioxide 29 mmol/L 22-32 Anion Gap 5 mmol/L 2-11 Glucose 84 mg/dL 70-100 Blood Urea Nitrogen 14 mg/dL 6-24 Creatinine 0.81 mg/dL 0.51-0.95 BUN/Creatinine Ratio 17.3 8-20 Calcium 9.2 mg/dL 8.6-10.3 Total Protein 5.9 g/dL Low 6.4-8.9 Albumin 3.9 g/dL 3.2-5.2 Globulin 2.0 g/dL 2-4 Albumin/Globulin Ratio 2.0 1-3 Total Bilirubin 0.50 mg/dL 0.2-1.0 Alkaline Phosphatase 68 U/L 34-104 Alt 12 U/L 7-52 Ast 15 U/L 13-39 Egfr Non- 68.0 >60 Egfr 87.5 >60 50 CBC W/Auto Diff 04/28/2014 White Blood Count 7.7 10^3/uL 4.8-10.8 Red Blood Count 4.89 10^6/uL 4.0-5.4 Hemoglobin 15.4 g/dL 12.0-16.0 Hematocrit 45 % 35-47 Mean Corpuscular Volume 93 fL 80-97 Mean Corpuscular Hemoglobin 31 pg 27-31 Mean Corpuscular HGB Conc 34 g/dL 31-36 Red Cell Distribution Width 14 % 10.5-15 Platelet Count 241 10^3/uL 150-450 Mean Platelet Volume 8 um3 7.4-10.4 Abs Neutrophils 5.7 10^3/uL 1.5-7.7 Abs Lymphocytes 1.5 10^3/uL 1.0-4.8 Abs Monocytes 0.4 10^3/uL 0-0.8 Abs Eosinophils 0.1 10^3/uL 0-0.6 Abs Basophils 0.1 10^3/uL 0-0.2 Abs Nucleated RBC 0 10^3/uL Granulocyte % 73.7 % 38-83 Lymphocyte % 19.6 % Low 25-47 Monocyte % 4.7 % 1-9 Eosinophil % 1.2 % 0-6 Basophil % 0.8 % 0-2 Nucleated Red Blood Cells % 0 CMP Panel 04/28/2014 Sodium 138 mmol/L 133-145 Potassium 4.6 mmol/L 3.7-5.6 Chloride 105 mmol/L 101-111 Co2 Carbon Dioxide 27 mmol/L 22-32 Anion Gap 6 mmol/L 2-11 Glucose 130 mg/dL High 70-100 Blood Urea Nitrogen 16 mg/dL 6-24 Creatinine 0.74 mg/dL 0.51-0.95 BUN/Creatinine Ratio 21.6 High 8-20 Calcium 9.4 mg/dL 8.6-10.3 Total Protein 6.1 g/dL Low 6.4-8.9 Albumin 4.0 g/dL 3.2-5.2 Globulin 2.1 g/dL 2-4 Albumin/Globulin Ratio 1.9 1-3 Total Bilirubin 0.50 mg/dL 0.2-1.0 Alkaline Phosphatase 63 U/L 34-104 Alt 17 U/L 7-52 Ast 19 U/L 13-39 Egfr Non- 75.5 >60 Egfr 97.1 >60 51 Laboratory test finding 04/28/2014 C Reactive Protein 3.04 mg/L < 5.00 52 Erythrocyte Sed Rate 12 mm/Hr 0-40 Comp Metabolic Panel 01/11/2014 Sodium 137 mmol/L 133-145 Potassium 4.5 mmol/L 3.7-5.6 Chloride 102 mmol/L 101-111 Co2 Carbon Dioxide 28 mmol/L 22-32 Anion Gap 7 mmol/L 2-11 Glucose 104 mg/dL High 70-100 Blood Urea Nitrogen 13 mg/dL 6-24 Creatinine 0.75 mg/dL 0.51-0.95 BUN/Creatinine Ratio 17.3 8-20 Calcium 9.0 mg/dL 8.6-10.3 Total Protein 5.9 g/dL Low 6.4-8.9 Albumin 3.8 g/dL 3.2-5.2 Globulin 2.1 g/dL 2-4 Albumin/Globulin Ratio 1.8 1-3 Total Bilirubin 0.40 mg/dL 0.2-1.0 Alkaline Phosphatase 65 U/L 34-104 Alt 15 U/L 7-52 Ast 17 U/L 13-39 Egfr Non- 74.4 >60 Egfr 95.6 >60 53 Liver Function Panel 01/11/2014 Direct Bilirubin 0.00 mg/dL Low 0.03-0.18 Indirect Bilirubin (SEE NOTE) mg/dL 0.3-1.0 54 Laboratory test finding 01/11/2014 C Reactive Protein 2.48 mg/L < 5.00 55 CBC With Manual Diff 01/11/2014 White Blood Count 8.3 10^3/uL 4.8-10.8 Red Blood Count 4.60 10^6/uL 4.0-5.4 Hemoglobin 14.6 g/dL 12.0-16.0 Hematocrit 43 % 35-47 Mean Corpuscular Volume 92 fL 80-97 Mean Corpuscular Hemoglobin 32 pg High 27-31 Mean Corpuscular HGB Conc 34 g/dL 31-36 Red Cell Distribution Width 14 % 10.5-15 Platelet Count 252 10^3/uL 150-450 Mean Platelet Volume 9 um3 7.4-10.4 Abs Neutrophils 6.0 10^3/uL 1.5-7.7 Abs Lymphocytes 1.6 10^3/uL 1.0-4.8 Abs Monocytes 0.5 10^3/uL 0-0.8 Abs Eosinophils 0.1 10^3/uL 0-0.6 Abs Basophils 0.1 10^3/uL 0-0.2 Abs Nucleated RBC 0.01 10^3/uL Neutrophil % 69 % 38-83 Band % 1 % 0-8 Lymphocytes % 20 % Low 25-47 Monocytes % 7 % 0-13 Eosinophils % 2 % 0-6 Reactive Lymph % 1 % 0-6 RBC Morphology Normal Normal Laboratory test finding 01/11/2014 Erythrocyte Sed Rate 10 mm/Hr 0-40 Comp Metabolic Panel 10/26/2013 Sodium 137 mmol/L 133-145 Potassium 4.2 mmol/L 3.7-5.6 Chloride 104 mmol/L 101-111 Co2 Carbon Dioxide 27 mmol/L 22-32 Anion Gap 6 mmol/L 2-11 Glucose 73 mg/dL 70-100 Blood Urea Nitrogen 16 mg/dL 6-24 Creatinine 0.86 mg/dL 0.51-0.95 BUN/Creatinine Ratio 18.6 8-20 Calcium 9.3 mg/dL 8.6-10.3 Total Protein 6.0 g/dL Low 6.4-8.9 Albumin 4.0 g/dL 3.2-5.2 Globulin 2.0 g/dL 2-4 Albumin/Globulin Ratio 2.0 1-3 Total Bilirubin 0.50 mg/dL 0.2-1.0 Alkaline Phosphatase 65 U/L 34-104 Alt 13 U/L 7-52 Ast 18 U/L 13-39 Egfr Non- 63.5 >60 Egfr 81.7 >60 56 Laboratory test 10/26/2013 C Reactive Protein 1.23 mg/L High Less than 5.0 57 finding CBC With Manual Diff 10/26/2013 White Blood Count 8.6 10^3/uL 4.8-10.8 Red Blood Count 4.73 10^6/uL 4.0-5.4 Hemoglobin 15.1 g/dL 12.0-16.0 Hematocrit 44 % 35-47 Mean Corpuscular Volume 93 fL 80-97 Mean Corpuscular Hemoglobin 32 pg High 27-31 Mean Corpuscular HGB Conc 34 g/dL 31-36 Red Cell Distribution Width 15 % 10.5-15 Platelet Count 235 10^3/uL 150-450 Mean Platelet Volume 9 um3 7.4-10.4 Abs Neutrophils 5.5 10^3/uL 1.5-7.7 Abs Lymphocytes 2.0 10^3/uL 1.0-4.8 Abs Monocytes 0.8 10^3/uL 0-0.8 Abs Eosinophils 0.2 10^3/uL 0-0.6 Abs Basophils 0.1 10^3/uL 0-0.2 Abs Nucleated RBC 0 10^3/uL Neutrophil % 62 % 38-83 Lymphocytes % 21 % Low 25-47 Monocytes % 12 % 0-13 Eosinophils % 3 % 0-6 Basophil % 1 % 0-2 Reactive Lymph % 1 % 0-6 RBC Morphology Normal Normal Laboratory test 10/26/2013 Erythrocyte Sed Rate 8 mm/Hr 0-40 finding Laboratory test 07/20/2013 C Reactive Protein 1.9 mg/dL High Less than 0.5 finding CBC With Manual Diff 07/20/2013 White Blood Count 8.8 10^3/uL 4.8-10.8 Red Blood Count 4.72 10^6/uL 4.0-5.4 Hemoglobin 14.9 g/dL 12.0-16.0 Hematocrit 44 % 35-47 Mean Corpuscular Volume 93 fL 80-97 Mean Corpuscular Hemoglobin 32 pg High 27-31 Mean Corpuscular HGB Conc 34 g/dL 31-36 Red Cell Distribution Width 13 % 10.5-15 Platelet Count 300 10^3/uL 150-450 Mean Platelet Volume 9 um3 7.4-10.4 Abs Neutrophils 7.1 10^3/uL 1.5-7.7 Abs Lymphocytes 1.1 10^3/uL 1.0-4.8 Abs Monocytes 0.4 10^3/uL 0-0.8 Abs Eosinophils 0.1 10^3/uL 0-0.6 Abs Basophils 0.1 10^3/uL 0-0.2 Abs Nucleated RBC 0 10^3/uL Neutrophil % 79 % 38-83 Lymphocytes % 16 % Low 25-47 Monocytes % 3 % 0-13 Eosinophils % 2 % 0-6 RBC Morphology Normal Normal Laboratory test finding 07/20/2013 Erythrocyte Sed Rate 23 mm/Hr 0-40 Laboratory test finding 07/16/2013 Erythrocyte Sed Rate 12 mm/Hr 0-40 CBC With Manual Diff 07/16/2013 White Blood Count 14.1 10^3/uL High 4.8- 10.8 Red Blood Count 4.79 10^6/uL 4.0-5.4 Hemoglobin 15.1 g/dL 12.0-16.0 Hematocrit 44 % 35-47 Mean Corpuscular Volume 92 fL 80-97 Mean Corpuscular Hemoglobin 32 pg High 27-31 Mean Corpuscular HGB Conc 34 g/dL 31-36 Red Cell Distribution Width 14 % 10.5-15 Platelet Count 256 10^3/uL 150-450 Mean Platelet Volume 8 um3 7.4-10.4 Abs Neutrophils 11.6 10^3/uL High 1.5-7.7 Abs Lymphocytes 1.3 10^3/uL 1.0-4.8 Abs Monocytes 1.0 10^3/uL High 0-0.8 Abs Eosinophils 0.1 10^3/uL 0-0.6 Abs Basophils 0.1 10^3/uL 0-0.2 Abs Nucleated RBC 0 10^3/uL Neutrophil % 87 % High 38-83 Lymphocytes % 5 % Low 25-47 Monocytes % 6 % 0-13 Basophil % 1 % 0-2 Reactive Lymph % 1 % 0-6 RBC Morphology Normal Normal Laboratory test finding 07/16/2013 C Reactive Protein 1.1 mg/dL High Less than 0.5 Liver Function Panel 07/16/2013 Total Protein 5.4 g/dL Low 6.2-8.1 Albumin 3.7 g/dL 3.2-5.2 Globulin 1.7 g/dL Low 2-4 Albumin/Globulin Ratio 2.2 1-3 Total Bilirubin 0.7 mg/dL 0.4-1.5 Direct Bilirubin 0.1 mg/dL 0.1-0.5 Indirect Bilirubin 0.6 mg/dL 0.3-1.0 Alkaline Phosphatase 65 U/L 30-110 Alt 19 U/L 14-54 Ast 21 U/L 12-42 Liver Function Panel 04/29/2013 Total Protein 5.7 g/dL Low 6.2-8.1 Albumin 3.6 g/dL 3.2-5.2 Globulin 2.1 g/dL 2-4 Albumin/Globulin Ratio 1.7 1-3 Total Bilirubin 0.7 mg/dL 0.4-1.5 Direct Bilirubin 0.1 mg/dL 0.1-0.5 Indirect Bilirubin 0.6 mg/dL 0.3-1.0 Alkaline Phosphatase 65 U/L 30-110 Alt 21 U/L 14-54 Ast 24 U/L 12-42 Laboratory test finding 04/29/2013 C Reactive Protein < 0.5 mg/dL Less than 0.5 CBC With Manual Diff 04/29/2013 White Blood Count 8.4 10^3/uL 4.8-10.8 Red Blood Count 4.55 10^6/uL 4.0-5.4 Hemoglobin 14.9 g/dL 12.0-16.0 Hematocrit 43 % 35-47 Mean Corpuscular Volume 94 fL 80-97 Mean Corpuscular Hemoglobin 33 pg High 27-31 Mean Corpuscular HGB Conc 35 g/dL 31-36 Red Cell Distribution Width 14 % 10.5-15 Platelet Count 242 10^3/uL 150-450 Mean Platelet Volume 8 um3 7.4-10.4 Abs Neutrophils 5.3 10^3/uL 1.5-7.7 Abs Lymphocytes 2.1 10^3/uL 1.0-4.8 Abs Monocytes 0.7 10^3/uL 0-0.8 Abs Eosinophils 0.1 10^3/uL 0-0.6 Abs Basophils 0.1 10^3/uL 0-0.2 Abs Nucleated RBC 0.01 10^3/uL Neutrophil % 63 % 38-83 Band % 2 % 0-8 Lymphocytes % 24 % Low 25-47 Monocytes % 7 % 0-13 Basophil % 1 % 0-2 Reactive Lymph % 3 % 0-6 RBC Morphology Normal Normal Laboratory test finding 04/29/2013 Erythrocyte Sed Rate 9 mm/Hr 0-40 Basic Metabolic Panel 01/22/2013 Sodium 139 mmol/L 133-145 Potassium 3.9 mmol/L 3.5-5.0 Chloride 105 mmol/L 101-111 Co2 Carbon Dioxide 29.0 mmol/L 22-32 Anion Gap 5.0 mmol/L 2-11 Glucose 79 mg/dL 70-100 Blood Urea Nitrogen 12 mg/dL 6-24 Creatinine 0.80 mg/dL 0.50-1.40 BUN/Creatinine Ratio 15.0 8-20 Calcium 9.4 mg/dL 8.1-9.9 Egfr Non- 69.2 >60 Egfr 89.0 >60 58 Lipid Profile (Trig/Chol/HDL) 01/22/2013 Triglycerides 49 mg/dL 40-200 Cholesterol 168 mg/dL Less than 200 HDL Cholesterol 55 mg/dL 40-60 59 Cholesterol/HDL Ratio 3.1 Average 1-4.44 LDL Cholesterol 103.2 mg/dL High Less Than 100 60 Liver Function Panel 01/22/2013 Total Protein 5.4 g/dL Low 6.2-8.1 Albumin 3.8 g/dL 3.2-5.2 Globulin 1.6 g/dL Low 2-4 Albumin/Globulin Ratio 2.4 1-3 Total Bilirubin 0.6 mg/dL 0.4-1.5 Direct Bilirubin 0.1 mg/dL 0.1-0.5 Indirect Bilirubin 0.5 mg/dL 0.3-1.0 Alkaline Phosphatase 56 U/L 30-110 Alt 18 U/L 14-54 Ast 21 U/L 12-42 Laboratory test finding 01/22/2013 TSH (Thyroid Stimulating 3.77 miu/mL 0.34-5.60 Horm) C Reactive Protein < 0.5 mg/dL Less than 0.5 CBC With Manual Diff 01/22/2013 White Blood Count 6.4 10^3/uL 4.8-10.8 Red Blood Count 4.71 10^6/uL 4.0-5.4 Hemoglobin 14.7 g/dL 12.0-16.0 Hematocrit 45 % 35-47 Mean Corpuscular Volume 95 fL 80-97 Mean Corpuscular Hemoglobin 31 pg 27-31 Mean Corpuscular HGB Conc 33 g/dL 31-36 Red Cell Distribution Width 14 % 10.5-15 Platelet Count 231 10^3/uL 150-450 Mean Platelet Volume 9 um3 7.4-10.4 Abs Neutrophils 3.4 10^3/uL 1.5-7.7 Abs Lymphocytes 2.3 10^3/uL 1.0-4.8 Abs Monocytes 0.5 10^3/uL 0-0.8 Abs Eosinophils 0.1 10^3/uL 0-0.6 Abs Basophils 0.1 10^3/uL 0-0.2 Abs Nucleated RBC 0.01 10^3/uL Neutrophil % 58 % 38-83 Lymphocytes % 35 % 25-47 Monocytes % 5 % 0-13 Basophil % 1 % 0-2 Reactive Lymph % 1 % 0-6 RBC Morphology Normal Normal Laboratory test finding 01/22/2013 Erythrocyte Sed Rate 5 mm/Hr 0-40 Vitamin D, 25 Hydroxy 01/22/2013 25-Hydroxy Vitamin D2 <4.0 ng/mL 25-Hydroxy Vitamin D3 31 ng/mL 25-Hydroxy Vitamin D Total 31 ng/mL 61 Basic Metabolic Panel 10/30/2012 Sodium 141 mmol/L 133-145 Potassium 4.1 mmol/L 3.5-5.0 Chloride 106 mmol/L 101-111 Co2 Carbon Dioxide 30.0 mmol/L 22-32 Anion Gap 5.0 mmol/L 2-11 Glucose 83 mg/dL 70-100 Blood Urea Nitrogen 14 mg/dL 6-24 Creatinine 0.80 mg/dL 0.50-1.40 BUN/Creatinine Ratio 17.5 8-20 Calcium 9.3 mg/dL 8.1-9.9 Egfr Non- 69.2 >60 Egfr 89.0 >60 62 Liver Function Panel 10/30/2012 Total Protein 6.0 g/dL Low 6.2-8.1 Albumin 3.8 g/dL 3.2-5.2 Globulin 2.2 g/dL 2-4 Albumin/Globulin Ratio 1.7 1-3 Total Bilirubin 0.6 mg/dL 0.4-1.5 Direct Bilirubin 0.1 mg/dL 0.1-0.5 Indirect Bilirubin 0.5 mg/dL 0.3-1.0 Alkaline Phosphatase 66 U/L 30-110 Alt 24 U/L 14-54 Ast 23 U/L 12- Laboratory test finding 10/30/2012 C Reactive Protein 0.5 mg/dL Less than 0.5 CBC Auto Diff 10/30/2012 White Blood Count 9.4 10^3/uL 4.8-10.8 Red Blood Count 4.83 10^6/uL 4.0-5.4 Hemoglobin 15.4 g/dL 12.0-16.0 Hematocrit 46 % 35-47 Mean Corpuscular Volume 95 fL 80-97 Mean Corpuscular Hemoglobin 32 pg High 27-31 Mean Corpuscular HGB Conc 34 g/dL 31-36 Red Cell Distribution Width 14 % 10.5-15 Platelet Count 240 10^3/uL 150-450 Mean Platelet Volume 9 um3 7.4-10.4 Abs Neutrophils 7.4 10^3/uL 1.5-7.7 Abs Lymphocytes 1.4 10^3/uL 1.0-4.8 Abs Monocytes 0.5 10^3/uL 0-0.8 Abs Eosinophils 0.1 10^3/uL 0-0.6 Abs Basophils 0.1 10^3/uL 0-0.2 Abs Nucleated RBC 0 10^3/uL Granulocyte % 78.2 % 38-83 Lymphocyte % 14.5 % Low 25-47 Monocyte % 5.2 % 1-9 Eosinophil % 1.0 % 0-6 Basophil % 1.1 % 0-2 Nucleated Red Blood Cells % 0 Laboratory test finding 10/30/2012 Erythrocyte Sed Rate 10 mm/Hr 0-40 Laboratory test finding 07/28/2012 C Reactive Protein 0.5 mg/dL Less than 0.5 Liver Function Panel 07/28/2012 Total Protein 5.6 g/dL Low 6.2-8.1 Albumin 3.9 g/dL 3.2-5.2 Globulin 1.7 GM/DL Low 2-4 Albumin/Globulin Ratio 2.3 1-3 Total Bilirubin 0.7 mg/dL 0.4-1.5 Direct Bilirubin 0 mg/dL Low 0.1-0.5 Alkaline Phosphatase 66 U/L 30-110 Alt 21 U/L 14-54 Ast 27 U/L 12-42 Basic Metabolic Panel 07/28/2012 Sodium 137 mmol/L 133-145 Potassium 4.0 mmol/L 3.5-5.0 Chloride 104 mmol/L 101-111 Co2 Carbon Dioxide 25.0 mmol/L 22-32 Anion Gap 8.0 mmol/L 2-11 Glucose 150 mg/dL High 70-100 Blood Urea Nitrogen 13 mg/dL 6-24 Creatinine 0.90 mg/dL 0.50-1.40 BUN/Creatinine Ratio 14.4 8-20 Calcium 9.1 mg/dL 8.1-9.9 Egfr Non- 60.4 >60 Egfr 77.7 >60 63 Laboratory test finding 07/28/2012 Erythrocyte Sed Rate 10 mm/Hr 0-40 CBC Auto Diff 07/28/2012 White Blood Count 8.3 10^3/uL 4.8-10.8 Red Blood Count 4.66 10^6/uL 4.0-5.4 Hemoglobin 14.9 g/dL 12.0-16.0 Hematocrit 44 % 35-47 Mean Corpuscular Volume 94 fL 80-97 Mean Corpuscular Hemoglobin 32 pg High 27-31 Mean Corpuscular HGB Conc 34 g/dL 31-36 Red Cell Distribution Width 14 % 10.5-15 Platelet Count 216 10^3/uL 150-450 Mean Platelet Volume 9 um3 7.4-10.4 Abs Neutrophils 7.0 10^3/uL 1.5-7.7 Abs Lymphocytes 0.7 10^3/uL Low 1.0-4.8 Abs Monocytes 0.5 10^3/uL 0-0.8 Abs Eosinophils 0 10^3/uL 0-0.6 Abs Basophils 0 10^3/uL 0-0.2 Abs Nucleated RBC 0 10^3/uL Granulocyte % 84.5 % High 38-83 Lymphocyte % 8.8 % Low 25-47 Monocyte % 5.9 % 1-9 Eosinophil % 0.3 % 0-6 Basophil % 0.5 % 0-2 Nucleated Red Blood Cells % 0 Comp Metabolic Panel 05/16/2012 Sodium 140 mmol/L 135-145 Potassium 3.8 mmol/L 3.5-5.0 Chloride 102 mmol/L 101-111 Co2 (Carbon Dioxide) 31.0 mmol/L 22-32 Anion Gap 7.0 mmol/L 2-11 64 Glucose 80 mg/dL 70-100 BUN 16 mg/dL 6-24 Creatinine 0.9 mg/dL 0.50-1.40 One Over Creatinine 1.11 BUN/Creatinine Ratio 17.8 8-20 Calcium 8.8 mg/dL 8.1-9.9 Total Protein 5.1 GM/DL Low 6.2-8.1 Albumin 3.4 GM/DL 3.2-5.2 Globulin 1.7 GM/DL Low 2-4 Albumin/Globulin Ratio 2.0 1-3 Bilirubin Total 0.8 mg/dL 0.4-1.5 65 Alkaline Phosphatase 55 U/L 30-110 Alt (SGPT) 14 U/L 14-54 Ast (Sgot) 18 U/L 12-42 eGFR Non- 60.6 > 60 eGFR 77.9 > 60 66 Laboratory test finding 05/16/2012 C Reactive Protein < 0.5 mg/dL Less Than 0.5 CBC With Manual Diff 05/16/2012 White Blood Count 9.3 CUMM 4.8-10.8 Red Cell Count 4.25 CUMM 4.2-5.4 Hemoglobin 13.5 g/dL 12.0-16.0 Hematocrit 40 % 35-47 Mean Corpuscular Volume 95 um3 79-97 Mean Corpuscular Hemoglob 32 pg High 27-31 Mean Corpuscular HGB Cone 34 g/dL 32-36 Redcell Distribution WDTH 14 % 10.5-15 Platelet Count 222 CUMM 150-450 Mean Platelet Volume 8.5 um3 7.4-10.4 Absolute Neutrophil Count 6.5 1.5-7.7 Polysegmented Neutrophil 75 % 38-83 Band Neutrophil 3 % 0-8 Lymphocyte 14 % Low 25-47 Monocyte 5 % 0-13 Eosinophil 1 % 0-6 Atypical Lymph 2 % 0-6 Anisocytosis SLIGHT Laboratory test finding 05/16/2012 Erythrocyte Sed Rate 10 MM/HR 0-40 Laboratory test finding 02/21/2012 Erythrocyte Sed Rate 6 MM/HR 0-40 CBC With Manual Diff 02/21/2012 White Blood Count 7.1 CUMM 4.8-10.8 Red Cell Count 4.60 CUMM 4.2-5.4 Hemoglobin 14.5 g/dL 12.0-16.0 Hematocrit 43 % 35-47 Mean Corpuscular Volume 93 um3 79-97 Mean Corpuscular Hemoglob 32 pg High 27-31 Mean Corpuscular HGB Cone 34 g/dL 32-36 Redcell Distribution WDTH 14 % 10.5-15 Platelet Count 237 CUMM 150-450 Mean Platelet Volume 8.5 um3 7.4-10.4 Absolute Neutrophil Count 3.6 1.5-7.7 Polysegmented Neutrophil 55 % 38-83 Lymphocyte 35 % 25-47 Monocyte 6 % 0-13 Eosinophil 2 % 0-6 Basophil 2 % 0-2 RBC Morphology NORMAL Laboratory test finding 02/21/2012 C Reactive Protein < 0.5 mg/dL Less Than 0.5 Comp Metabolic Panel 02/21/2012 Sodium 138 mmol/L 135-145 Potassium 3.8 mmol/L 3.5-5.0 Chloride 107 mmol/L 101-111 Co2 (Carbon Dioxide) 29.0 mmol/L 22-32 Anion Gap 2.0 mmol/L 2-11 67 Glucose 79 mg/dL 70-100 BUN 14 mg/dL 6-24 Creatinine 0.8 mg/dL 0.50-1.40 One Over Creatinine 1.25 BUN/Creatinine Ratio 17.5 8-20 Calcium 9.0 mg/dL 8.1-9.9 Total Protein 5.2 GM/DL Low 6.2-8.1 Albumin 3.6 GM/DL 3.2-5.2 Globulin 1.6 GM/DL Low 2-4 Albumin/Globulin Ratio 2.3 1-3 Bilirubin Total 0.8 mg/dL 0.4-1.5 68 Alkaline Phosphatase 52 U/L 30-110 Alt (SGPT) 18 U/L 14-54 Ast (Sgot) 21 U/L 12-42 eGFR Non- 69.4 > 60 eGFR 89.2 > 60 69 1 [id number] 2 Because ethnic data is not always readily available, this report includes an eGFR for both -Americans and non- Americans. The National Kidney Disease Education Program (NKDEP) does not endorse the use of the MDRD equation for patients that are not between the ages of 18 and 70, are , have extremes of body size, muscle mass, or nutritional status, or are non- or non-. According to the National Kidney Foundation, irrespective of diagnosis, the stage of the disease is based on the level of kidney function: Stage Description GFR(mL/min/1.73 m(2)) 1 Kidney damage with normal or decreased GFR 90 2 Kidney damage with mild decrease in GFR 60-89 3 Moderate decrease in GFR 30-59 4 Severe decrease in GFR 15-29 5 Kidney failure <15 (or dialysis) 3 Normal Range 180 to 914 Indeterminate Range 145 to 180 Deficient Range <145 4 Because ethnic data is not always readily available, this report includes an eGFR for both -Americans and non- Americans. The National Kidney Disease Education Program (NKDEP) does not endorse the use of the MDRD equation for patients that are not between the ages of 18 and 70, are , have extremes of body size, muscle mass, or nutritional status, or are non- or non-. According to the National Kidney Foundation, irrespective of diagnosis, the stage of the disease is based on the level of kidney function: Stage Description GFR(mL/min/1.73 m(2)) 1 Kidney damage with normal or decreased GFR 90 2 Kidney damage with mild decrease in GFR 60-89 3 Moderate decrease in GFR 30-59 4 Severe decrease in GFR 15-29 5 Kidney failure <15 (or dialysis) 5 Acute inflammation: >10.00 6 Copy Result to: YUNG GODDARD ([id number]) 7 Because ethnic data is not always readily available, this report includes an eGFR for both -Americans and non- Americans. The National Kidney Disease Education Program (NKDEP) does not endorse the use of the MDRD equation for patients that are not between the ages of 18 and 70, are , have extremes of body size, muscle mass, or nutritional status, or are non- or non-. According to the National Kidney Foundation, irrespective of diagnosis, the stage of the disease is based on the level of kidney function: Stage Description GFR(mL/min/1.73 m(2)) 1 Kidney damage with normal or decreased GFR 90 2 Kidney damage with mild decrease in GFR 60-89 3 Moderate decrease in GFR 30-59 4 Severe decrease in GFR 15-29 5 Kidney failure <15 (or dialysis) 8 Acute inflammation: >10.00 9 Copy Result to: YUNG GODDARD ([id number]) 10 [id number] Desirable <150 Borderline high 150-199 High 200-499 Very High >500 14 Desirable <200 Borderline high 200-239 High >239 15 Low <40 Desirable: 40-60 High: >60 16 Desirable: <100 mg/dL Near Optimal: 100-129 mg/dL Borderline High: 130-159 mg/dL High: 160-189 mg/dL Very High: >189 mg/dL 17 Acute inflammation: >10.00 18 [id number] 19 Because ethnic data is not always readily available, this report includes an eGFR for both -Americans and non- Americans. The National Kidney Disease Education Program (NKDEP) does not endorse the use of the MDRD equation for patients that are not between the ages of 18 and 70, are , have extremes of body size, muscle mass, or nutritional status, or are non- or non-. According to the National Kidney Foundation, irrespective of diagnosis, the stage of the disease is based on the level of kidney function: Stage Description GFR(mL/min/1.73 m(2)) 1 Kidney damage with normal or decreased GFR 90 2 Kidney damage with mild decrease in GFR 60-89 3 Moderate decrease in GFR 30-59 4 Severe decrease in GFR 15-29 5 Kidney failure <15 (or dialysis) 20 [id number] 21 [id number] 22 Acute inflammation: >10.00 23 Because ethnic data is not always readily available, this report includes an eGFR for both -Americans and non- Americans. The National Kidney Disease Education Program (NKDEP) does not endorse the use of the MDRD equation for patients that are not between the ages of 18 and 70, are , have extremes of body size, muscle mass, or nutritional status, or are non- or non-. According to the National Kidney Foundation, irrespective of diagnosis, the stage of the disease is based on the level of kidney function: Stage Description GFR(mL/min/1.73 m(2)) 1 Kidney damage with normal or decreased GFR 90 2 Kidney damage with mild decrease in GFR 60-89 3 Moderate decrease in GFR 30-59 4 Severe decrease in GFR 15-29 5 Kidney failure <15 (or dialysis) 24 [id number] 25 [id number] 26 Acute inflammation: >10.00 27 [id number] 28 Because ethnic data is not always readily available, this report includes an eGFR for both -Americans and non- Americans. The National Kidney Disease Education Program (NKDEP) does not endorse the use of the MDRD equation for patients that are not between the ages of 18 and 70, are , have extremes of body size, muscle mass, or nutritional status, or are non- or non-. According to the National Kidney Foundation, irrespective of diagnosis, the stage of the disease is based on the level of kidney function: Stage Description GFR(mL/min/1.73 m(2)) 1 Kidney damage with normal or decreased GFR 90 2 Kidney damage with mild decrease in GFR 60-89 3 Moderate decrease in GFR 30-59 4 Severe decrease in GFR 15-29 5 Kidney failure <15 (or dialysis) 29 Because ethnic data is not always readily available, this report includes an eGFR for both -Americans and non- Americans. The National Kidney Disease Education Program (NKDEP) does not endorse the use of the MDRD equation for patients that are not between the ages of 18 and 70, are , have extremes of body size, muscle mass, or nutritional status, or are non- or non-. According to the National Kidney Foundation, irrespective of diagnosis, the stage of the disease is based on the level of kidney function: Stage Description GFR(mL/min/1.73 m(2)) 1 Kidney damage with normal or decreased GFR 90 2 Kidney damage with mild decrease in GFR 60-89 3 Moderate decrease in GFR 30-59 4 Severe decrease in GFR 15-29 5 Kidney failure <15 (or dialysis) 30 Acute inflammation: >10.00 31 SEE RESULT BELOW Name: SUKHDEEPMIKAYLASHAZIA H : [address]: Rylan Rodriguez NP Acct: [id number] Unit: [id number] AGE: 80 Location: [facility] Re11/10/15 SEX: F Status: REG REF SPEC: [id number] SADE: 11/10/15-[address] [facility] [address]: Rylan Rodriguez NP REQ: [id number] RECD: 11/10/15 STATUS: KEILY NAVARRO DR: Yung Goddard MD _ SOURCE: URINE SPDESC: ORDERED: Urine Culture Procedure Result Reported Site Urine Culture Final 11/11/15- 1558 ML Few Enterobacteriacae; possible contamination. * ML - MAIN LAB ([facility]) . END OF REPORT * ML=Testing performed at Main Lab DEPARTMENT OF PATHOLOGY, [address] [place] [address] Mele Deluca M.D. Director [facility] # [id number] 32 Acute inflammation: >10.00 33 Test Performed by: [address] [address] Geometry Tutor: Clinton Blair II, M.D., Ph.D. 34 Because ethnic data is not always readily available, this report includes an eGFR for both -Americans and non- Americans. The National Kidney Disease Education Program (NKDEP) does not endorse the use of the MDRD equation for patients that are not between the ages of 18 and 70, are , have extremes of body size, muscle mass, or nutritional status, or are non- or non-. According to the National Kidney Foundation, irrespective of diagnosis, the stage of the disease is based on the level of kidney function: Stage Description GFR(mL/min/1.73 m(2)) 1 Kidney damage with normal or decreased GFR 90 2 Kidney damage with mild decrease in GFR 60-89 3 Moderate decrease in GFR 30-59 4 Severe decrease in GFR 15-29 5 Kidney failure <15 (or dialysis) 35 Because ethnic data is not always readily available, this report includes an eGFR for both -Americans and non- Americans. The National Kidney Disease Education Program (NKDEP) does not endorse the use of the MDRD equation for patients that are not between the ages of 18 and 70, are , have extremes of body size, muscle mass, or nutritional status, or are non- or non-. According to the National Kidney Foundation, irrespective of diagnosis, the stage of the disease is based on the level of kidney function: Stage Description GFR(mL/min/1.73 m(2)) 1 Kidney damage with normal or decreased GFR 90 2 Kidney damage with mild decrease in GFR 60-89 3 Moderate decrease in GFR 30-59 4 Severe decrease in GFR 15-29 5 Kidney failure <15 (or dialysis) 36 Acute inflammation: >10.00 37 The above VELMA screen is designed for the detection of antibodies to extractable nuclear antigen (VELMA) in human serum. It is a combination test for the detection of antibodies to COAT MAKER, Sm, SS-A (Ro), and SS-B (La) nuclear antigens. 38 Test Performed by: [place] [address] Geometry Tutor: Clinton Blair II, M.D., Ph.D. 39 Test Performed by: [place] [address] [employer] Tutor: Clinton Blair II, M.D., Ph.D. 40 REFERENCE VALUE <20.0 (Negative) Test Performed by: [place] [address] Geometry Tutor: Clinton Blair II, M.D., Ph.D. 41 Because ethnic data is not always readily available, this report includes an eGFR for both -Americans and non- Americans. The National Kidney Disease Education Program (NKDEP) does not endorse the use of the MDRD equation for patients that are not between the ages of 18 and 70, are , have extremes of body size, muscle mass, or nutritional status, or are non- or non-. According to the National Kidney Foundation, irrespective of diagnosis, the stage of the disease is based on the level of kidney function: Stage Description GFR(mL/min/1.73 m(2)) 1 Kidney damage with normal or decreased GFR 90 2 Kidney damage with mild decrease in GFR 60-89 3 Moderate decrease in GFR 30-59 4 Severe decrease in GFR 15-29 5 Kidney failure <15 (or dialysis) 42 AM 8.7-22.4 PM <10 43 Acute inflammation: >10.00 44 REFERENCE VALUE 10-60 (a.m. collection) Test Performed by: [address] [place] [address] Geometry Tutor: Clinton Blair II, M.D., Ph.D. 45 Acute inflammation: >10.00 46 Desirable <150 Borderline high 150-199 High 200-499 Very High >500 47 Desirable <200 Borderline high 200-239 High >239 48 Low <40 Desirable: 40-60 High: >60 49 Desirable <100 Near Optimal 100-129 Borderline high 130-159 High 160-189 Very High >189 50 Because ethnic data is not always readily available, this report includes an eGFR for both -Americans and non- Americans. The National Kidney Disease Education Program (NKDEP) does not endorse the use of the MDRD equation for patients that are not between the ages of 18 and 70, are , have extremes of body size, muscle mass, or nutritional status, or are non- or non-. According to the National Kidney Foundation, irrespective of diagnosis, the stage of the disease is based on the level of kidney function: Stage Description GFR(mL/min/1.73 m(2)) 1 Kidney damage with normal or decreased GFR 90 2 Kidney damage with mild decrease in GFR 60-89 3 Moderate decrease in GFR 30-59 4 Severe decrease in GFR 15-29 5 Kidney failure <15 (or dialysis) 51 Because ethnic data is not always readily available, this report includes an eGFR for both -Americans and non- Americans. The National Kidney Disease Education Program (NKDEP) does not endorse the use of the MDRD equation for patients that are not between the ages of 18 and 70, are , have extremes of body size, muscle mass, or nutritional status, or are non- or non-. According to the National Kidney Foundation, irrespective of diagnosis, the stage of the disease is based on the level of kidney function: Stage Description GFR(mL/min/1.73 m(2)) 1 Kidney damage with normal or decreased GFR 90 2 Kidney damage with mild decrease in GFR 60-89 3 Moderate decrease in GFR 30-59 4 Severe decrease in GFR 15-29 5 Kidney failure <15 (or dialysis) 52 Acute inflammation: >10.00 53 Because ethnic data is not always readily available, this report includes an eGFR for both -Americans and non- Americans. The National Kidney Disease Education Program (NKDEP) does not endorse the use of the MDRD equation for patients that are not between the ages of 18 and 70, are , have extremes of body size, muscle mass, or nutritional status, or are non- or non-. According to the National Kidney Foundation, irrespective of diagnosis, the stage of the disease is based on the level of kidney function: Stage Description GFR(mL/min/1.73 m(2)) 1 Kidney damage with normal or decreased GFR 90 2 Kidney damage with mild decrease in GFR 60-89 3 Moderate decrease in GFR 30-59 4 Severe decrease in GFR 15-29 5 Kidney failure <15 (or dialysis) 54 Unable to calculate Ind Bili as D Bili is <0.1 55 Acute inflammation: >10.00 56 Because ethnic data is not always readily available, this report includes an eGFR for both -Americans and non- Americans. The National Kidney Disease Education Program (NKDEP) does not endorse the use of the MDRD equation for patients that are not between the ages of 18 and 70, are , have extremes of body size, muscle mass, or nutritional status, or are non- or non-. According to the National Kidney Foundation, irrespective of diagnosis, the stage of the disease is based on the level of kidney function: Stage Description GFR(mL/min/1.73 m(2)) 1 Kidney damage with normal or decreased GFR 90 2 Kidney damage with mild decrease in GFR 60-89 3 Moderate decrease in GFR 30-59 4 Severe decrease in GFR 15-29 5 Kidney failure <15 (or dialysis) 57 Acute inflammation: >10.00 In accordance with FDA guideline, CRP is now reported in mg/L, previous reporting was in mg/dL. 58 Because ethnic data is not always readily available, this report includes an eGFR for both -Americans and non- Americans. The National Kidney Disease Education Program (NKDEP) does not endorse the use of the MDRD equation for patients that are not between the ages of 18 and 70, are , have extremes of body size, muscle mass, or nutritional status, or are non- or non-. According to the National Kidney Foundation, irrespective of diagnosis, the stage of the disease is based on the level of kidney function: Stage Description GFR(mL/min/1.73 m(2)) 1 Kidney damage with normal or decreased GFR 90 2 Kidney damage with mild decrease in GFR 60-89 3 Moderate decrease in GFR 30-59 4 Severe decrease in GFR 15-29 5 Kidney failure <15 (or dialysis) 59 HDL Interpretation: Undesirable: High Risk: Less than 40 mg/dL Desirable: Low Risk: Greater than 60 mg/dL 60 LDL Interpretation: Low Risk Optimal Level: LDL Less than 100 mg/dL Near or Above Optimal: LDL 100-129 mg/dL Borderline High Risk: LDL 130-159 mg/dL High Risk: LDL 160-189 mg/dL Very High Risk: LDL Greater than 189 mg/dL 61 -- REFERENCE VALUE -- 25-HYDROXY D TOTAL (D2+D3) Optimum levels in the normal population are 25-80 Test Performed by: [place] [address] Geometry Tutor: Rei Hong III, M.D. 62 Because ethnic data is not always readily available, this report includes an eGFR for both -Americans and non- Americans. The National Kidney Disease Education Program (NKDEP) does not endorse the use of the MDRD equation for patients that are not between the ages of 18 and 70, are , have extremes of body size, muscle mass, or nutritional status, or are non- or non-. According to the National Kidney Foundation, irrespective of diagnosis, the stage of the disease is based on the level of kidney function: Stage Description GFR(mL/min/1.73 m(2)) 1 Kidney damage with normal or decreased GFR 90 2 Kidney damage with mild decrease in GFR 60-89 3 Moderate decrease in GFR 30-59 4 Severe decrease in GFR 15-29 5 Kidney failure <15 (or dialysis) 63 Because ethnic data is not always readily available, this report includes an eGFR for both -Americans and non- Americans. The National Kidney Disease Education Program (NKDEP) does not endorse the use of the MDRD equation for patients that are not between the ages of 18 and 70, are , have extremes of body size, muscle mass, or nutritional status, or are non- or non-. According to the National Kidney Foundation, irrespective of diagnosis, the stage of the disease is based on the level of kidney function: Stage Description GFR(mL/min/1.73 m(2)) 1 Kidney damage with normal or decreased GFR 90 2 Kidney damage with mild decrease in GFR 60-89 3 Moderate decrease in GFR 30-59 4 Severe decrease in GFR 15-29 5 Kidney failure <15 (or dialysis) 64 Anion gap measurement may be of limited value in the presence of any alkalosis, especially in a combined acid base disorder. . 65 A metabolite of Naproxen, O-desmethylnaproxen, has been shown to interfere with the Jendrassik-Yamila method for measuring total bilirubin. Samples from patients who have taken Naproxen have shown spurious elevation in total bilirubin levels. 66 Because ethnic data is not always readily available, this report includes an eGFR for both -Americans and non- Americans. The National Kidney Disease Education Program (NKDEP) does not endorse the use of the MDRD equation for patients that are not between the ages of 18 and 70, are , have extremes of body size, muscle mass, or nutritional status, or are non- or non-. According to the National Kidney Foundation, irrespective of diagnosis, the stage of the disease is based on the level of kidney function: Stage Description GFR(mL/min/1.73 m(2)) 1 Kidney damage with normal or decreased GFR 90 2 Kidney damage with mild decrease in GFR 60-89 3 Moderate decrease in GFR 30-59 4 Severe decrease in GFR 15-29 5 Kidney failure <15 (or dialysis) 67 Anion gap measurement may be of limited value in the presence of any alkalosis, especially in a combined acid base disorder. . 68 A metabolite of Naproxen, O-desmethylnaproxen, has been shown to interfere with the Jendrassik-Renwick method for measuring total bilirubin. Samples from patients who have taken Naproxen have shown spurious elevation in total bilirubin levels. 69 Because ethnic data is not always readily available, this report includes an eGFR for both -Americans and non- Americans. The National Kidney Disease Education Program (NKDEP) does not endorse the use of the MDRD equation for patients that are not between the ages of 18 and 70, are , have extremes of body size, muscle mass, or nutritional status, or are non- or non-. According to the National Kidney Foundation, irrespective of diagnosis, the stage of the disease is based on the level of kidney function: Stage Description GFR(mL/min/1.73 m(2)) 1 Kidney damage with normal or decreased GFR 90 2 Kidney damage with mild decrease in GFR 60-89 3 Moderate decrease in GFR 30-59 4 Severe decrease in GFR 15-29 5 Kidney failure <15 (or dialysis) Procedures Date CPT Code Description Status 04/09/2018 48609 EKG Tracing & Interpretation Completed 01/29/2018 73959 EKG Tracing & Interpretation Completed 01/21/2018 00443 EKG Tracing & Interpretation Completed 06/28/2017 75393 Stress Test Completed 06/28/2017 23513 Myocardial Perfusion Imaging Tomographic (Spect) Completed Multiple Studies 05/22/2017 67769 Holter Monitor Review (24 hr)dr review & interp only Completed 05/10/2017 19086 ECG Monitor/Recording W/Visual Superimposition Scanning Completed 03/28/2017 12659 EKG Tracing & Interpretation Completed 07/13/2016 87720 EKG Tracing & Interpretation Completed 02/03/2016 12681 ECHO Transthoracic, Real-Time 2D With Doppler And Color Completed Flow 01/20/2016 44460 EKG Tracing & Interpretation Completed 12/05/2015 Bone Mineral Density Test Completed 07/15/2015 89122 EKG Tracing & Interpretation Completed 01/28/2015 47234 EKG Tracing & Interpretation Completed 12/25/2013 31392 EKG Tracing & Interpretation Completed 06/18/2013 65933 EKG Tracing & Interpretation Completed 05/22/2013 40767 EKG Tracing & Interpretation Completed 12/11/2012 87910 EKG Tracing & Interpretation Completed 11/03/2012 57104 Holter Monitoring 24 HR New Completed 09/29/2012 69978 Stress Test Supervsn W/Out I/R Completed 09/29/2012 59645 Stress Test Supervsn W/Out I/R Completed 09/29/2012 97671 Treadmill Interp/Report Only Completed 09/29/2012 19304 Treadmill Interp/Report Only Completed 09/29/2012 77433 Stress Test Supervsn W/Out I/R Completed 09/29/2012 45120 Treadmill Interp/Report Only Completed 09/24/2012 11829 EKG Tracing & Interpretation Completed 07/24/2012 69091 Holter Monitoring 24 HR New Completed 07/02/2012 Bone Mineral Density Test Completed 06/18/2012 66211 EKG Tracing & Interpretation Completed 07/26/2010 81088 EKG Tracing & Interpretation Completed 03/24/2007 21648 Stress Test Completed 03/24/2007 95254 ECHO/Stress Completed 03/24/2007 01139 ECHO/Stress Completed 03/24/2007 98759 Stress Test Completed 03/24/2007 68610 ECHO/Stress Completed 03/12/2007 48704 Echocardiogram Completed 03/12/2007 26422 Echocardiogram Completed 03/12/2007 69994 Color Doppler Completed 03/12/2007 30611 Color Doppler Completed 03/12/2007 18489 Color Doppler Completed 03/12/2007 39370 Pulse Doppler & Continuous Wave Completed 03/12/2007 44036 Pulse Doppler & Continuous Wave Completed 03/12/2007 75197 Echocardiogram Completed 03/06/2007 05510 EKG Tracing & Interpretation Completed 03/06/2007 74213 EKG Tracing & Interpretation Completed 09/26/2004 11714 ECHO/Stress Completed 09/26/2004 22997 Treadmill Interp/Report Only Completed 09/26/2004 96196 Stress Test Supervsn W/Out I/R Completed Encounters Type Date Location Provider CPT E/M Dx Office Visit 03/10/2018 [facility] KELVIN Lanier 03853 M35.3 3:00p Of Mercedes M06.09 Z79.52 Office Visit 01/29/2018 11:45a [facility] Erik Marti 12216 F41.9 Bradley Donaldson R42 I48.0 I10 Office Visit 01/22/2018 8:40a [facility] Lise Diallo, N.P. 79043 E87.1 F41.9 R42 Office Visit 12/31/2017 11:57a [facility] Lise Diallo 06213 J06.9 N.P. Office Visit 09/30/2017 1:30p [facility] KELVIN Lanier 10239 M35.3 Of Mercedes M06.09 R53.83 M85.89 Z79.52 M85.80 Office Visit 05/27/2017 1:30p [facility] Of Rylan Rodriguez, 55138 M06.09 [facility] M35.3 E55.9 Z79.52 I49.3 Office Visit 05/03/2017 3:00p [facility] Of Gómez Marti, 22290 I48.0 [facility] M.D. Office Visit 03/28/2017 2:40p [facility] Of Lance Montoya, 34465 I48.0 [facility] Office Visit 03/25/2017 1:00p [facility] Rylan Proctorloan CHRONIC CARE NURSE 30634 M06.09 [facility] M35.3 Z79.52 Office Visit 12/17/2016 3:00p [facility] Of Rylan Proctork, 31088 M06.09 [facility] M35.3 M76.31 E55.9 Z79.52 E03.9 M85.89 Office Visit 07/13/2016 4:00p [facility] Of Gómez Marti, 30546 R01.1 Biostatistics Professor M.D. I48.0 Office Visit 06/19/2016 1:30p [facility] Of Rylan ProctorSAL catesP 22668 M35.3 [facility] Z79.52 E55.9 Office Visit 03/19/2016 1:20p [facility] Of Ramone Ying, 61733 M35.3 Bradley M.DKimberly M17.9 Z79.52 Office Visit 01/20/2016 4:00p [facility] Of Gómez Marti, 07972 I48.0 [facility] M.D. R07.9 R01.1 R06.02 Office Visit 11/16/2015 2:00p [facility] KELVIN Lainer 10324 M06.09 Of [facility] M35.3 Z79.52 E55.9 M85.9 Z79.899 Office Visit 08/09/2015 2:00p [facility] KELVIN Lanier 94568 M06.09 Of Biostatistics Professor M35.3 M85.9 Z79.52 M85.80 Office Visit 07/15/2015 10:00a [facility] Gómez Valencia Figueroa, 70753 I48.0 Biostatistics Professor M.D. Office Visit 04/07/2015 2:20p [facility] Everett Moise M.D. 26444 714.0 Of [facility] 725 V58.65 Office Visit 01/28/2015 11:45a [facility] Gómez Valencia Figueroa, 94146 427.31 Biostatistics Professor M.DKimberly 785.1 Office Visit 01/14/2015 2:20p [facility] Everett Moise M.D. 91245 714.0 Of [facility] 725 V58.69 V58.65 Office Visit 07/27/2014 3:00p [facility] Of Varun Jo M.D. 59269 714.0 [facility] 725 255.9 729.1 Office Visit 07/01/2014 11:30a [facility] Gómez Valencia Figueroa, 76958 427.31 [facility] M.DKimberly 785.1 Office Visit 05/04/2014 1:40p [facility] Everett Moise M.D. 28112 714.0 Of Biostatistics Professor V58.69 Office Visit 01/13/2014 1:40p [facility] Everett Moise M.D. 71816 714.0 Of Biostatistics Professor V58.69 Office Visit 12/25/2013 1:30p [facility] Gómez RiderKimberly Marti, 80192 427.31 Biostatistics Professor M.D. Office Visit 10/28/2013 1:40p [facility] Everett Moise 34597 714.0 Of Bradley Donaldson V58.69 Office Visit 07/31/2013 2:20p [facility] vEerett Moise M.D. 55743 714.0 Of Biostatistics Professor V58.69 Office Visit 05/22/2013 1:30p [facility] Gómez RiderKimberly Marti, 39965 785.1 Biostatistics Professor M.DKimberly 427.31 Office Visit 05/05/2013 1:00p [facility] Everett Moise 56973 714.0 Of Biostatistics Professor M.D. Office Visit 04/16/2013 12:30p [facility] Gómez RiderKimberly Marti, 91460 427.31 Biostatistics Professor M.D. Office Visit 02/05/2013 1:00p [facility] Everett Moise 51516 714.0 Of [facility] M.D. V58.69 Office Visit 01/02/2013 1:45p [facility] Gómez Marti, 86140 427.89 Biostatistics Professor M.D. Office Visit 12/11/2012 2:00p [facility] Gómez Marti, 15807 785.1 Biostatistics Professor M.D. 427.61 427.89 Office Visit 11/04/2012 1:40p [facility] Everett Moise M.D. 18779 714.0 Of Biostatistics Professor V58.69 Office Visit 11/03/2012 11:20a [facility] Melanie June D.O. 91009 785.1 401.1 Office Visit 10/01/2012 2:40p [facility] Melanie June D.O. 91970 785.1 401.1 272.4 Office Visit 09/24/2012 2:20p [facility] Melanie June D.O. 52813 785.1 401.1 272.4 Office Visit 06/18/2012 2:20p [facility] Melanie June D.O. 13470 785.1 401.1 272.4 Office Visit 05/23/2012 2:00p [facility] Everett Moise M.D. 94802 714.0 Of Biostatistics Professor V58.69 255.0 Office Visit 02/28/2012 1:00p [facility] Everett Moise M.D. 31786 714.0 Of Biostatistics Professor Office Visit 12/28/2011 11:00a [facility] Everett Moise M.D. 99896 714.0 Of Biostatistics Professor V58.69 Office Visit 11/09/2011 11:40a [facility] Everett Moise M.D. 47348 714.0 Of Biostatistics Professor V58.69 Office Visit 09/18/2011 10:40a [facility] Everett Moise M.D. 11379 714.0 Of Biostatistics Professor V58.69 780.79 536.8 Office Visit 07/31/2011 1:00p [facility] Everett Moise M.D. 46189 714.0 Of Biostatistics Professor V58.69 Office Visit 06/13/2011 11:00a [facility] Melanie June D.O. 20513 785.1 401.1 Office Visit 05/31/2011 1:00p [facility] Everett Moise, 66833 V04.81 Of [facility] Jory.Erik 714.0 V58.69 Office Visit 04/05/2011 11:00a [facility] Everett Moise M.D. 92002 714.0 Of Biostatistics Professor V58.69 Office Visit 02/22/2011 1:00p [facility] Everett Moise M.D. 46710 714.0 Of Biostatistics Professor V58.69 Office Visit 01/18/2011 1:00p [facility] Everett Moise M.D. 25760 714.0 Of [facility] 382.9 V58.69 466.0 Office Visit 12/21/2010 11:00a [facility] Everett Moise M.D. 94969 714.0 Of [facility] V58.69 Office Visit 11/14/2010 1:20p [facility] Everett Moise M.D. 64957 714.0 Of [facility] 725 V58.69 Office Visit 09/22/2010 11:20a [facility] Melanie June D.O. 09344 401.1 785.1 Office Visit 08/16/2010 11:00a [facility] Melanie June D.O. 22464 401.1 785.1 427.31 Office Visit 07/26/2010 2:40p [facility] Melanie June D.O. 54552 401.1 785.1 427.31 Office Visit 06/14/2010 1:00p [facility] Of Rick Fernandez M.D. 76223 717.7 C.M.A. Office Visit 05/09/2010 1:00p [facility] Of Rick Fernandez M.D. 98543 717.7 C.M.A. Office Visit 04/27/2010 2:30p [facility] Of JUANPABLO Tse 90635 717.9 C.M.A. 716.96 Office Visit 03/06/2007 11:40a [facility] Michael Louis M.D. 83819 401.1 794.31 785.1 272.0 Plan of Care Future Appointment(s):06/02/2018 1:30 pm - Zsofia Michael, CHRONIC CARE NURSE at [facility]04/09/2018 - Gómez Marti M.D.I10 Essential ( primary) srsyizxbugzpS69.3 Ventricular premature fqxwzuknauomfyQ08.0 Paroxysmal atrial fibrillationFollow up:6 monthsRecommendations:Ok to decrease Flecainide to 50 mg (1 tab) twice a day
--- NOTE | 2018-04-26 15:30 | RAD ---
Indication: Lightheaded. RIGHT mouth angle lower than LEFT. Irregular heartbeat. Comparison: January 30, 2018 MRI. Technique: Noncontrast CT vertex of skull through foramen magnum. Report: No significant change in smooth margined partially calcified LEFT frontal extra-axial lesion with associated hyperostosis of the adjacent calvarium consistent with a meningioma. Unchanged mild mass effect on the subjacent LEFT frontal lobe. No additional extra or intra-axial lesions evident. Negative for hagen matter white matter obscuration or intra or extra-axial hemorrhage. Decreased density in the periventricular and subcortical white matter while non-specific is most likely due to chronic microangiopathy. Mild prominence of the cerebral sulci and cerebellar fissures reflecting involutional change. Proportional mild prominence of the ventricles and basal cisterns. Unremarkable partially visualized orbital contents. No suspicious calvarial or skull base lesion evident. Clear visualized paranasal sinuses and mastoid air spaces. Unremarkable scalp. IMPRESSION: #. No CT evidence for an acute intracranial process. #. Mild involutional change and stigmata of chronic small vessel ischemic disease. #. Unchanged LEFT frontal meningioma.
[2018-04-26] MEDS ORDERED: amLODIPine TAB* 5 MG PO ONE ×2 (16:58→17:05)
[2018-04-26] MEDS ORDERED: amLODIPine TAB* 5 MG ONE (16:58)
[2018-04-26 17:32] VITALS: BP 204/90
== END 2018-04-26 17:29 | disposition home or self-care (01) ==
LOC: ED 13:17
DX: R42 Dizziness and giddiness (principal); I10 Essential (primary) hypertension; R53.83 Other fatigue; R29.810 Facial weakness
CPT/HCPCS: 36415; 70450; 71045; 80053; 82550; 82553; 83605; 83690; 83735; 83880; 84443; 84484; 85025; 85379; 85610; 85730; 86140; 93005; 99283; A9270-GY

== ENCOUNTER 2019-05-11 10:50 | Emergency (ER) | payer MEDICARE, OTHER ==
--- OUTSIDE RECORDS SUMMARY | 2019-05-11 11:07 | XMS REPORT | Continuity of Care Document ---
:1935 External Reference #:[id number] Author Name Gómez Marti M.D. (transmitted by agent of provider Elodia De Luna) Address [address] [place] [id number] Care Team Providers Name Role Phone Jeni Bardales MD - Cardiovascular Care Team Information Title Officer Disease Marvin Hernandez MD - Internal Medicine Care Team Information Title Officer Problems Active Problems Provider Date Palpitations Melanie June D.O. Onset: 06/13/2011 Rheumatoid arthritis Everett Moise M.D. Onset: 05/23/2012 Medications [facility] (Current) Use Everett Moise M.D. Onset: 05/23/2012 Encounter Hypercortisolism Everett Moise M.D. Onset: 05/23/2012 Benign essential hypertension Melanie June D.O. Onset: 06/18/2012 Atrial fibrillation Gómez Marti M.D. Onset: 05/22/2013 Polymyalgia rheumatica Varun Jo M.D. Onset: 07/27/2014 Disorder of adrenal gland Varun Jo M.D. Onset: 07/27/2014 Myalgia & Myositis Unspecified Varun Jo M.D. Onset: 07/27/2014 Taking medication Everett Moise M.D. Onset: 01/14/2015 Steroid Everett Moise M.D. Onset: 04/07/2015 Social History Type Date Description Comments Sex Unknown ETOH Use Occasionally consumes alcohol Tobacco Use Start: Unknown Patient has never smoked Recreational Drug Use Denies Drug Use Smoking Status Reviewed: 04/17/19 Patient has never smoked Exercise Type/Frequency Exercises rarely Allergies, Adverse Reactions, Alerts Active Allergies Reaction Severity Comments Date Penicillin diarrhea 03/06/2007 Methotrexate 2 days of fatigue 09/18/2011 Hydroxychloroquine gi upset 09/18/2011 Medications Active Medications SIG Qnty Indications Ordering Provider Date Prednisone take four 112tabs M06.09 Rylan Rodriguez, 12/08/2018 1mg Tablets tablets by mouth [employer] for four weeks, three tablets for four weeks, then stay on two tablets once daily M35.3 Z79.52 Atenolol 1 tab daily 90tabs Other Ordering 02/05/2013 25mg Tablets Provider Saundraien 1/2-1 tab po qhs prn 30tabs Unknown 10mg Tablets sleep insomnia Clonazepam 1 tab po at night 15tabs Unknown 1mg Tablets Triamterene/Hydrochloroth 1 cap po daily Unknown iazide 37.5-25mg Capsules Losartan Potassium 1 tablet po daily Unknown 50mg Tablets Morning Melatonin 1 by mouth @ at Unknown 3mg Capsules bedtime Atorvastatin Calcium 1 tablet po daily PM Unknown 20mg Tablets History Medications Duloxetine HCL 1 by mouth G89.4 Rylan Rodriguez, 04/17/2019 - 20mg every day [employer] 03/31/[address] [place] Duloxetine HCL 1 tabs by mouth 30caps G89.4 Rylan Proctork, 12/08/2018 - 20mg daily until [employer] OPER[employer] 03/31/[address] [place] next visit. Medications Administered in Office Medication SIG Qnty Indications Ordering Provider Date Inj, Regadenoson, 0.1 MG Ramone Ying M.D. 06/28/2017 Injection Inj, Regadenoson, 0.1 MG Gómez Marti M.D. 06/28/2017 Injection Technetium TC 99M TetrGómez wilson M.D. 06/28/2017 Per Unit Dose Up To 40 Millicuries Injection PPD Everett Moise M.D. 01/08/2011 Injection PPD Nurse Visit 01/08/2011 Injection Immunizations CPT Code Status Date Vaccine Lot # [id number] Given 05/31/2011 Afluria Vaccine [id number] Vital Signs Date Vital Result Comment 04/17/2019 8:21am Height 64 inches 5'4" Weight 136.00 lb Heart Rate 64 /min BP Systolic Sitting 136 mmHg Rue reg cuff BP Diastolic Sitting 70 mmHg Rue reg cuff BP Systolic Standing 134 mmHg Rue BP Diastolic Standing 72 mmHg Rue Respiratory Rate 16 /min BMI (Body Mass Index) 23.3 kg/m2 Ejection Fraction 60-65% 05/21/18 12/08/2018 12:58pm Height 64 inches 5'4" Weight 131.38 lb Heart Rate 70 /min BP Systolic 102 mmHg BP Diastolic 62 mmHg Body Temperature 98.8 F O2 % BldC Oximetry 96 % BMI (Body Mass Index) 22.5 kg/m2 Results Description No Information Available Procedures Date Code Description Status 01/02/2019 01058 Destruction ALL Benign Or Premalignant Lesion (Other Completed Than [place] 01/02/2019 31442 Tangential Biopsy Of Skin, Single Lesion Completed 12/18/2018 [id number] Bone Mineral Density Test Completed 11/21/2018 30874 EKG Tracing & Interpretation Completed 12/05/2015 [id number] Bone Mineral Density Test Completed 07/02/2012 [id number] Bone Mineral Density Test Completed Medical Devices Description No Information Available Encounters Type Date Location Provider Dx Diagnosis Office Visit 01/02/2019 [facility] Derm[facility] Doris Johnson, R23.3 Spontaneous 2:10p ecchymoseeliana L98.9 Disorder of the skin and subcutaneous tissue, unspecified L57.0 Actinic keratosis Office Visit 12/08/2018 1:00p Rheumatology Zsofia M35.3 Polymyalgia Services Of [facility] - Michael, [employer] rheumatica Ccmob G89.4 Chronic pain syndrome Z79.52 [facility] (current) use of systemic steroids Office Visit 11/21/2018 11:45a [facility] Gómez Valencia I10 Essential (primary) Of Bradley Marti M.D. hypertension R00.2 Palpitations I48.0 Paroxysmal atrial fibrillation Assessments Date Code Description Provider 04/17/2019 R00.2 Palpitations Gómez Marti M.D. 04/17/2019 I48.0 Paroxysmal atrial fibrillation Gómez Marti M.D. 04/17/2019 I10 Essential (primary) hypertension Gómez Marti M.D. 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 11/21/2018 R00.2 Palpitations Gómez Marti M.D. 11/21/2018 I48.0 Paroxysmal atrial fibrillation Gómez Marti M.D. Plan of Treatment Future Appointment(s):06/03/2019 4:00 pm - G[facility]z [facility] M.D. at [facility]04/17/2019 - Gómez Marti M.D.R00.2 PalpitationsNew Orders :[facility], Ordered: 04/17/19Follow up:6 xkszrP14.0 Paroxysmal atrial vtpxtgtoggidB29 Essential (primary) hypertension Functional Status Description No Information Available Mental Status Description No Information Available Referrals Description No Information Available
--- OUTSIDE RECORDS SUMMARY | 2019-05-11 11:07 | XMS REPORT | Summary of Care ---
:1935 Author Organization [facility] Address [address] [facility] [address] [id number] Care Team Providers Name Role Phone Marvin Hernandez MD Primary Care Provider Reason for Visit Reason Comments Follow Up Encounter Details Date Type Department Care Team Description 04/17/2019 Office Visit Marvin Dumont Essential (primary) hypertension (Primary Dx); [address]; [place] [address] [address] Psychophysiological insomnia; [phone] Night sweats; [place], [place] Bilateral hearing loss, unspecified hearing loss type; [id number] PVC's (premature ventricular contractions) [phone] Allergies Active Allergy Reactions Severity Noted Date Comments Lactose Intolerance GI Reaction 01/14/2018 Diarrhea, bloating Penicillins GI Reaction 01/14/2018 diarrhea documented as of this encounter (statuses as of 04/17/2019) Medications Medication Sig Dispensed Refills Start Date End Date Status predniSONE (DELTASONE) 1 Take 5 mg by 0 Active MG Oral Tab mouth DAILY. Omeprazole 20 MG Oral Take 1 Tab by 30 Tab 5 09/16/2018 Active Tab EC mouth DAILY. atorvastatin (LIPITOR) Take 20 mg by 0 Active 20 MG Oral Tab mouth EVERY BEDTIME. Melatonin 3 MG Oral Tab Take 3 mg by 0 Active mouth EVERY BEDTIME. losartan (COZAAR) 50 MG Take 50 mg by 0 Active Oral Tab mouth DAILY. triamterene-hydrochlorot Take 1 Tab by 60 Tab 0 01/09/2019 Active hiazide mouth DAILY (DYAZIDE/MAXZIDE) NEEDED (for 37.5-25 MG Oral Tab htn). zolpidem (AMBIEN) 10 MG TAKE 1/2-1 30 Tab 2 02/16/2019 Active Oral Tab TABLET BY MOUTH AT BEDTIME NEEDED MAXIMUM DAILY DOSE = 1 Desvenlafaxine Succinate Take 1 Tab by 30 Tab 5 03/13/2019 Active ER 25 MG Oral TABLET SR mouth DAILY. 24 HR clonazePAM (KLONOPIN) 1 TAKE ONE TABLET 60 Tab 0 04/08/2019 Active MG Oral Tab BY MOUTH TWICE A DAY NEEDED FOR ANXIETY MAXIMUM DAILY DOSE = 2 atenolol (TENORMIN) 25 TAKE 1 TAB BY 30 Tab 11 04/10/2019 Active MG Oral Tab MOUTH DAILY. documented as of this encounter (statuses as of 04/17/2019) Active Problems Problem Noted Date PVD (posterior vitreous detachment), both eyes 04/02/2018 Meibomitis 12/03/2016 Dry eye syndrome, bilateral 12/03/2016 Presence of intraocular lens 12/03/2016 Sensorineural hearing loss, unspecified 12/24/2008 Rosacea, acne Overview: CONTROLLED WITH METROGEL Essential (primary) hypertension Overview: CONTROLLED WITH MEDS Anxiety Overview: CONTROLLED WITH CLONIPINE Hearing impaired Osteopenia RA (rheumatoid arthritis) Hyperlipidemia Dizziness Benign neoplasm of meninges Tachycardia Allergic rhinitis Insomnia Basal cell carcinoma of face Overview: excised 03/06/19 documented as of this encounter (statuses as of 04/17/2019) Resolved Problems Problem Noted Date Resolved Date Ocular pain, left eye 06/21/2017 04/02/2018 documented as of this encounter (statuses as of 04/17/2019) Immunizations Name Administration Dates Next Due H1N1 Injectable Adult 08/09/2009 Influenza Vaccine High Dose 05/29/2018 Influenza Vaccine Whole 06/10/2008 Pneumococcal Conjugate Vaccine 06/06/2012 documented as of this encounter Social History Tobacco Use Types Packs/Day Years Used Date Never Smoker Smokeless Tobacco: Never Used Alcohol Use Drinks/Week oz/Week Comments Yes SOCIAL Sex Assigned at Date Recorded Not on file Job Start Date Occupation Industry Not on file Not on file Not on file Travel History Travel Start Travel End No recent travel history available. documented as of this encounter Last Filed Vital Signs Vital Sign Reading Time Taken Comments Blood Pressure 124/72 04/17/2019 1:15 PM EDT Pulse 68 04/17/2019 1:15 PM EDT Temperature 36.4 04/17/2019 1:15 PM EDT C (97.5 F) Respiratory Rate 24 04/17/2019 1:15 PM EDT Oxygen Saturation - - Inhaled Oxygen Concentration - - Weight 61.4 kg (135 lb 6.4 oz) 04/17/2019 1:15 PM EDT Height - - Body Mass Index 23.99 03/13/2019 2:36 PM EDT documented in this encounter Progress Notes Marvin Hernandez MD - 04/17/2019 11:00 AM EDT PATIENT: Shazia Jj : 1935 DATE OF SERVICE: 04/17/2019 CHIEF COMPLAINT: Chief Complaint Patient presents with Follow Up Subjective HISTORY OF PRESENT ILLNESS: Shazia Jj is a 83-y.o. female. HPI She presents in follow-up of several issues. She bitterly complains of being unable to hear. I told her to consider inquiring about cochlear implant since her hearing aids do not seem to effectively serve her needs. I gave her the name of machine operator packaging Abhinav Camarillo MD in [place]. Had visit with her inking machine tender Dr. Marti, who will be performing a 3-week heart rhythm monitoring.Told her I thought this was a good idea, to see what is going on when she has various symptoms. Still awakens with sweats and feels terrible, fatigued. Appetite is good. Weight stable. No trouble with bowels or bladder. No heartburn or indigestion. No chest pain or dyspnea. No fevers chills or sweats. Taking prednisone 5 mg a day, we tried splitting up the dose to see if that would help with sweats but it does not. Told her to try to reduce it to 4 mg alternating with 5 mg on sequential days Past Medical History: Diagnosis Date Allergic rhinitis Anxiety CONTROLLED WITH CLONIPINE Basal cell carcinoma of face excised 03/06/19 Benign neoplasm of meninges (HCC) Chronic allergic conjunctivitis SEASONAL ALLERGIES Dizziness Essential (primary) hypertension CONTROLLED WITH MEDS Eye disease MEIBOMITIS Hearing impaired Hyperlipidemia Hypothyroidism Insomnia Osteopenia RA (rheumatoid arthritis) (HCC) Rosacea, acne CONTROLLED WITH METROGEL Tachycardia sees Dr Marti Family History Problem Relation Age of Onset Stroke Mother Stroke Father Glaucoma No family history Blindness No family history Macular Degeneration No family history Current Outpatient Medications Medication Sig atenolol (TENORMIN) 25 MG Oral Tab TAKE 1 TAB BY MOUTH DAILY. atorvastatin (LIPITOR) 20 MG Oral Tab Take 20 mg by mouth EVERY BEDTIME. clonazePAM (KLONOPIN) 1 MG Oral Tab TAKE ONE TABLET BY MOUTH TWICE A DAY NEEDED FOR ANXIETY MAXIMUM DAILY DOSE = 2 Desvenlafaxine Succinate ER 25 MG Oral TABLET SR 24 HR Take 1 Tab by mouth DAILY. losartan (COZAAR) 50 MG Oral Tab Take 50 mg by mouth DAILY. Melatonin 3 MG Oral Tab Take 3 mg by mouth EVERY BEDTIME. Omeprazole 20 MG Oral Tab EC Take 1 Tab by mouth DAILY. predniSONE (DELTASONE) 1 MG Oral Tab Take 5 mg by mouth DAILY. triamterene-hydrochlorothiazide (DYAZIDE/MAXZIDE) 37.5-25 MG Oral Tab Take 1 Tab by mouth DAILY NEEDED (for htn). zolpidem (AMBIEN) 10 MG Oral Tab TAKE 1/2-1 TABLET BY MOUTH AT BEDTIME NEEDED MAXIMUM DAILY DOSE = 1 No current facility-administered medications for this visit. Allergies Allergen Reactions Lactose Intolerance GI Reaction Diarrhea, bloating Penicillins GI Reaction diarrhea Social History Socioeconomic History Marital status: Spouse name: Not on file Number of children: Not on file Years of education: Not on file Highest education level: Not on file Occupational History Not on file Social Needs Financial resource strain: Not on file Food insecurity: Worry: Not on file Inability: Not on file Transportation needs: Medical: Not on file Non-medical: Not on file Tobacco Use Smoking status: Never Smoker Smokeless tobacco: Never Used Substance and Sexual Activity Alcohol use: Yes Comment: SOCIAL Drug use: No Sexual activity: Not on file Lifestyle Physical activity: Days per week: Not on file Minutes per session: Not on file Stress: Not on file Relationships Social connections: Talks on phone: Not on file Gets together: Not on file Attends synagogue service: Not on file Active member of club or organization: Not on file Attends meetings of clubs or organizations: Not on file Relationship status: Not on file Intimate partner violence: Fear of current or ex partner: Not on file Emotionally abused: Not on file Physically abused: Not on file Forced sexual activity: Not on file Other Topics Concern Not on file Social History Narrative Not on file REVIEW OF SYSTEMS: ROS please see history of present illness otherwise noncontributory Objective PHYSICAL EXAM: VITALS: BP 124/72 | Pulse 68 | Temp 97.5 F (36.4 C) | Resp 24 | Wt 135 lb 6.4 oz (61.4 kg) | BMI 23.99 kg/m Body mass index is 23.99 kg/m . Physical Exam Alert, oriented, in no acute distress. Vitals as above. HEENT: Normocephalic, atraumatic. JENNIFER, EOMI. Mouth and ears unremarkable. Neck: No palpable lymphadenopathy in the submandibular, submental, anterior cervical, posterior cervical, or occipital chains, nor in the supraclavicular spaces. No JVD, thyromegaly. LUNGS: clear. HEART: Regular rate and rhythm with frequent extrasystoles. ABDOMEN: positive bowel sounds, soft, nontender, no hepatosplenomegaly, masses or bruits. EXTREMITIES: no cyanosis, clubbing, or edema. MSE: Mood not sad, affect not flat. No suicidal or homicidal ideation. No abnormality in thought process or thought content. Insight and judgement good. Well kempt. ASSESSMENT / IMPRESSION: ICD-9-CM ICD-10-CM 1. Essential (primary) hypertension 401.9 I10 2. Anxiety 300.00 F41.9 3. Psychophysiological insomnia 307.42 F51.04 4. Night sweats 780.8 R61 5. Bilateral hearing loss, unspecified hearing loss type 389.9 H91.93 6. PVC's (premature ventricular contractions) 427.69 I49.3 Blood pressure is controlled Anxiety is presently stable. Continue same regimen Insomnia is treated with zolpidem Night sweats are unexplained after extensive work-up including looking for pheochromocytoma watch for now. Consider cochlear implant for hearing loss PVCs will be documented with 3-week Holter monitor She will continue her same medications and return in 2 months author: Marvin Hernandez MD 04/17/2019 13:16 documented in this encounter Plan of Treatment Health Maintenance Due Date Last Done Comments MEDICARE ANNUAL WELLNESS 1935 VISIT ZOSTER IMMUNIZATION SERIES 1983 (1 of 2) PNEUMOCOCCAL 65+YRS (2 of 2 06/06/2013 06/06/2012 - PPSV23) INFLUENZA VACCINE (#1) 2019 05/29/2018, 05/28/2018, 05/27/2017, Additional history exists DEPRESSION SCREENING 07/04/2019 07/04/2018, 07/04/2018 FALL RISK ASSESSMENT 03/13/2020 03/13/2019, 03/13/2019 HPV IMMUNIZATION SERIES Aged Out No longer eligible based on patient's age to complete this topic MENINGOCOCCAL VACCINE IMM Aged Out No longer eligible based on patient's age to complete this topic documented as of this encounter Goals Goal Patient Goal Associated Recent Patient-Stated? Author Type Problems Progress Blood Pressure Blood Pressure 124/72 No David, < 150/90 (04/17/2019 MD Marvin 1:15 PM EDT) Note: This is an individualized treatment (blood pressure) goal for Shazia Jj: Displayed above (on the left) is your goal for blood pressure control. Your most recent blood pressure is also shown above, on the right. You should try to achieve blood pressures that are lower than your goal listed above (on the left). Depression screen (PHQ-9) Depression 19 (07/04/2018 4:16 PM No Marvin Hernandez MD total score < 5 EST) Note: This is an individualized treatment (depression) goal for Shazia Jj: Displayed above is your goal for a depression screening (PHQ-9) score that would indicate good control of your depression. Keep a regular sleep schedule Lifestyle Marvin Meneses MD Note: This is an individualized lifestyle goal for Shazia Jj: Please maintain a regular sleep schedule. This may help with some symptoms of depression. Take all prescribed medications as directed Self-management Marvin Meneses MD Note: This is an individualized self-management goal for Shazia Jj: Please take all prescribed medications as directed. 1. Do not skip doses. If you cannot afford your medications, talk with your doctor. 2. Use a pill reminder system such as a pill box if needed. Your pharmacist can help you with this. 3. Contact your Pharmacy 5 days before your medication runs out. If you cannot take your medications for any reasons, talk with your doctor. 4. Please bring all of your medication bottles and inhalers (or a list of all your medications/inhalers) with you to every visit. Potential barriers to meeting all of your care plan goals will continue to be addressed on an ongoing basis. documented as of this encounter Results Not on filedocumented in this encounter Visit Diagnoses Diagnosis Essential (primary) hypertension - Primary Unspecified essential hypertension Anxiety Anxiety state, unspecified Psychophysiological insomnia Persistent disorder of initiating or maintaining sleep Night sweats Generalized hyperhidrosis Bilateral hearing loss, unspecified hearing loss type PVC's (premature ventricular contractions) Other premature beats documented in this encounter Insurance Payer Benefit Plan / Subscriber ID Effective Phone Address Type Group Dates MEDICARE MEDICARE PART A xxxxxxxxxxx 1998-Pres Medicare & B ent COMMERCIAL COMMERCIAL xxxxxxxxxx Effective for Commercial GENERIC GENERIC PLAN all dates Guarantor Name Account Type Relation to Date of Phone Billing Patient Address Shazia Jj Personal/Family 1935 [address] (Home) [address] [phone] [place], [place] (Work) [id number] documented as of this encounter"
[2019-05-11] MEDS ORDERED: Lidocaine 1% MPF ** 5 ML VIAL INJ ONE (13:08)
--- NOTE | 2019-05-11 14:04 | ED ---
Head Injury - HPI Summary HPI Summary: 83-year-old female presents with laceration to scalp today. He states that she fell and hit her head on a nightstand. fall was a mechanical fall. Denies any chest or shortness breath. No neck pain. No other injury. No visual changes. No loss consciousness. Denies any nausea vomiting. admits to some dizziness and headache. Is not on blood thinners. laceration is not actively bleeding. sees primary regularly and has appointment tomorrow so believes tetanus is up to date. no other injury. - History Of Current Complaint Chief Complaint: EDHeadInjury Stated Complaint: FALL-LACERATION TO HEAD Time Seen by Provider: 05/11/19 12:26 Pain Intensity: 3 - Allergies/Home Medications Allergies/Adverse Reactions: Allergies Allergy/AdvReac Type Severity Reaction Status Date / Time milk AdvReac Mild Diarrhea Verified 05/11/19 10:57 Penicillins AdvReac Mild Diarrhea Verified 05/11/19 10:57 PMH/Surg Hx/FS Hx/Imm Hx Endocrine/Hematology History: Denies: Hx Anticoagulant Therapy, Hx Diabetes Cardiovascular History: Reports: Hx Angina, Hx Coronary Artery Disease, Hx Hypercholesterolemia, Hx Hypertension Denies: Hx Myocardial Infarction, Hx Pacemaker/ICD, Hx Valvular Heart Disease Respiratory History: Denies: Hx Asthma, Hx Chronic Obstructive Pulmonary Disease (COPD) History: Denies: Hx Dialysis, Hx Renal Disease Musculoskeletal History: Denies: Hx Rheumatoid Arthritis, Hx Osteoporosis Sensory History: Reports: Hx Hearing Aid Neurological History: Comment Only: Other Neuro Impairments/Disorders - HEADACHES/DIZZNESS LAST WEAK. BETTER NOW PER PT. Psychiatric History: Denies: Hx Panic Disorder - Surgical History Surgery Procedure, Year, and Place: HYSTERECTOMY. CATARACTS. TONSILS Infectious Disease History: No Infectious Disease History: Denies: Traveled Outside the [place] in Last 30 Days - Family History Known Family History: Negative: Diabetes - Social History Alcohol Use: Occasionally Alcohol Amount: occasional glass of wine Substance Use Type: Reports: None Smoking Status (MU): Never Smoked Tobacco Review of Systems Negative: Fever Negative: Chest Pain Negative: Shortness Of Breath Positive: Other - laceration scalp Positive: Headache All Other Systems Reviewed And Are Negative: Yes Physical Exam Triage Information Reviewed: Yes Vital Signs On Initial Exam: Initial Vitals Temp Pulse Resp BP Pulse Ox 97.2 F 68 16 161/96 97 05/11/19 10:55 05/11/19 10:55 05/11/19 10:55 05/11/19 10:55 05/11/19 10:55 Vital Signs Reviewed: Yes Appearance: Positive: Well-Appearing Skin: Positive: Warm, Dry, Other - 4cm by 1/2cm to scalp Head/Face: Positive: Normal Head/Face Inspection Eyes: Positive: Normal, EOMI, JENNIFER, Conjunctiva Clear ENT: Positive: Normal ENT inspection, Pharynx normal, TMs normal Neck: Positive: Other: - nontender neck Respiratory/Lung Sounds: Positive: Clear to Auscultation, Breath Sounds Present Cardiovascular: Positive: Normal, RRR Musculoskeletal: Positive: Normal Neurological: Positive: Sensory/Motor Intact, Alert, Oriented to Person Place, Time, CN Intact II-III Psychiatric: Positive: Normal Procedures - Laceration/Wound Repair 1 Location: head Description: Linear Anesthesia: 1.0% Length, Depth and Shape: 4cm by 1/2cm Irrigated w/ Saline (ccs): 200 Closure: [place] #__ - 4 Diagnostics - Vital Signs Vital Signs Temp Pulse Resp BP Pulse Ox 05/11/19 13:05 61 98 05/11/19 10:55 97.2 F 68 16 161/96 97 - Laboratory Lab Statement: Any lab studies that have been ordered have been reviewed, and results considered in the medical decision making process. - CT brain CT Interpretation Completed By: Radiologist Summary of CT Findings: IMPRESSION: NO ACUTE INTRACRANIAL PATHOLOGY. STABLE LEFT FRONTAL MENINGIOMA. Head Injury Course/Dx Course Of Treatment: 83-year-old female presents with laceration to scalp today. He states that she fell and hit her head on a nightstand. fall was a mechanical fall. Denies any chest or shortness breath. No neck pain. No other injury. No visual changes. No loss consciousness. Denies any nausea vomiting. admits to some dizziness and headache. Is not on blood thinners. laceration is not actively bleeding. sees primary regularly and has appointment tomorrow so believes tetanus is up to date. no other injury. On exam has 4 cm by 1/2cm laceration to scalp. Normal neuro exam. nontender neck. CT brain normal. Cleaned area and placed 4 davie. Told to follow-up with primary. Patient understands and agrees with plan. - Diagnoses Differential Diagnosis/HQI/PQRI: Concussion Without LOC, Contusion, Intracranial Bleed Provider Diagnoses: Head injury, Laceration of head Discharge ED - Sign-Out/Discharge Documenting (check all that apply): Patient Departure Patient Received Moderate/Deep Sedation with Procedure: No - Discharge Plan Condition: Good Disposition: HOME Patient Education Materials: Head Injury (ED), Staple Care (ED) Referrals: Marvin Hernandez MD [Primary Care Provider] - Additional Instructions: Take Tylenol for pain every 6 hours for pain Do not scrub staple area Return to ED, urgent care or primary in 7-10 days to have davie removed Follow up with primary within 5 days Return to ED if develop any new or worsening symptoms - Billing Disposition and Condition Condition: GOOD Disposition: Home
[2019-05-11 14:32] VITALS: BP 0/0
== END 2019-05-11 14:27 | disposition home or self-care (01) ==
LOC: ED 10:50
DX: S01.01XA Laceration without foreign body of scalp, initial encounter (principal); S09.90XA Unspecified injury of head, initial encounter; W18.00XA Striking against unspecified object with subsequent fall, initial encounter; Y92.9 Unspecified place or not applicable; Z88.0 Allergy status to penicillin
CPT/HCPCS: 12002; 70450; 99283

== ENCOUNTER 2019-11-21 06:46 | Inpatient (IN) | payer MEDICARE, OTHER ==
--- NOTE | 2019-11-21 07:12 | ED ---
Lower Extremity - HPI Summary HPI Summary: 84 year old F presenting to [facility] with a chief complaint of left hip pain since a fall at 04:00 this morning. The patient rates the pain 10/10 in severity. Symptoms aggravated by walking. Symptoms alleviated by nothing. Patient denies being on any blood thinners, hitting her head, or any other pain. Medication list reviewed. Allergy list reviewed. - History of Current Complaint Chief Complaint: EDHipPelvisInjury Stated Complaint: FALL/HIP PAIN PER EMS Time Seen by Provider: 11/21/19 06:48 Hx Obtained From: Patient Mechanism Of Injury: Fall From A Standing Position Onset of Pain: Immediate Onset/Duration: Hours Severity Initially: Severe Severity Currently: Severe Pain Intensity: 10 Pain Scale Used: 0-10 Numeric Timing: Constant Location: Is Discrete @ - Left hip Aggravating Factor(s): Weight Bearing Alleviating Factor(s): Nothing Able to Bear Weight: No - Allergies/Home Medications Allergies/Adverse Reactions: Allergies Allergy/AdvReac Type Severity Reaction Status Date / Time milk AdvReac Mild Diarrhea Verified 05/11/19 10:57 Penicillins AdvReac Mild Diarrhea Verified 05/11/19 10:57 Home Medications: Home Medications Atenolol TAB* [Tenormin TAB*] 25 mg PO DAILY 07/09/14 [History Confirmed ] Triamterene/HCTZ 37.5-25 MG* [Dyazide CAP*] 1 cap PO DAILY 04/26/18 [History Confirmed 05/11/19] Losartan TAB* [Cozaar TAB*] 50 - 100 mg PO DAILY 10/27/18 [History Confirmed ] Omeprazole CAP (NF) [Prilosec CAP* 20 MG] 20 mg PO DAILY 10/27/18 [History Confirmed 05/11/19] Zolpidem TAB* [Ambien TAB*] 10 mg PO BEDTIME 10/27/18 [History Confirmed ] clonazePAM TAB(*) [KlonoPIN TAB(*)] 1 - 2 mg PO DAILY 10/27/18 [History Confirmed 05/11/19] predniSONE 1 mg TAB [Deltasone 1 MG TAB*] 3 mg PO EVERY OTHER DAY 10/27/18 [ History Confirmed 05/11/19] predniSONE 5 mg TAB [Deltasone TAB*] 5 mg PO EVERY OTHER DAY 10/27/18 [History Confirmed 05/11/19] Melatonin/Pyridoxine HCl (B6) [Melatonin 3 mg Tablet] 1 each PO BEDTIME PRN [History Confirmed 05/11/19] PMH/Surg Hx/FS Hx/Imm Hx Endocrine/Hematology History: Denies: Hx Anticoagulant Therapy, Hx Diabetes Cardiovascular History: Reports: Hx Angina, Hx Coronary Artery Disease, Hx Hypercholesterolemia, Hx Hypertension Denies: Hx Myocardial Infarction, Hx Pacemaker/ICD, Hx Valvular Heart Disease Respiratory History: Denies: Hx Asthma, Hx Chronic Obstructive Pulmonary Disease (COPD) History: Denies: Hx Dialysis, Hx Renal Disease Musculoskeletal History: Denies: Hx Rheumatoid Arthritis, Hx Osteoporosis Sensory History: Reports: Hx Hearing Aid Neurological History: Comment Only: Other Neuro Impairments/Disorders - HEADACHES/DIZZNESS LAST WEAK. BETTER NOW PER PT. Psychiatric History: Denies: Hx Panic Disorder - Surgical History Surgery Procedure, Year, and Place: HYSTERECTOMY. CATARACTS. TONSILS Infectious Disease History: No Infectious Disease History: Denies: Traveled Outside the [place] in Last 30 Days - Family History Known Family History: Negative: Diabetes - Social History Alcohol Use: Occasionally Alcohol Amount: occasional glass of wine Substance Use Type: Reports: None Smoking Status (MU): Never Smoked Tobacco Review of Systems Negative: Dental Pain Positive: Other - Left hip pain All Other Systems Reviewed And Are Negative: Yes Physical Exam - Summary Physical Exam Summary: Constitutional: Well-developed, Well-nourished, Alert. (-) Distressed Skin: Warm, Dry HENT: Normocephalic; Atraumatic Eyes: Conjunctiva normal Neck: Musculoskeletal ROM normal neck. (-) JVD, (-) Stridor, (-) Nuchal rigidity Cardio: Rhythm regular, rate normal, Heart sounds normal; Intact distal pulses; Radial pulses are 2+ and symmetric. (-) Murmur Pulmonary/Chest wall: Effort normal. (-) Respiratory distress, (-) Wheezes, (-) Rales Abd: Soft, (-) tenderness, (-) Distension, (-) Guarding, (-) Rebound Musculoskeletal: (-) Edema, left hip tenderness, unable to straight leg raise, 2 + DP pulse. No TL tenderness, no distal femur/knee/foot tenderness. Neuro: Alert, Oriented x3 Psych: Mood and affect Normal Triage Information Reviewed: Yes Vital Signs On Initial Exam: Initial Vitals Temp Pulse Resp BP Pulse Ox 97.3 F 54 18 176/92 96 11/21/19 06:47 11/21/19 06:47 11/21/19 06:47 11/21/19 06:47 11/21/19 06:47 Vital Signs Reviewed: Yes Procedures - Sedation Patient Received Moderate/Deep Sedation with Procedure: No Diagnostics - Vital Signs Vital Signs Temp Pulse Resp BP Pulse Ox 11/21/19 06:47 97.3 F 54 18 176/92 96 - Laboratory Result Diagrams: 11/21/19 08:12 Lab Statement: Any lab studies that have been ordered have been reviewed, and results considered in the medical decision making process. - Radiology Chest x-ray Radiology Interpretation Completed By: Radiologist Summary of Radiographic Findings: CARDIOMEGALY WITHOUT EVIDENCE OF PNEUMONIA. ED physician has reviewed this report. Pelvis x-ray Radiology Interpretation Completed By: Radiologist Summary of Radiographic Findings: Fracture neck of the left femur with overriding of the fracture fragment. Pelvic ring is grossly intact. ED physician has reviewed this report. Femur x-ray Radiology Interpretation Completed By: Radiologist Summary of Radiographic Findings: Fracture neck of the left femur with overriding of the fracture fragments. ED physician has reviewed this report. - EKG 07:27 Cardiac Rate: NL - 69 BPM EKG Rhythm: Sinus Rhythm Summary of EKG Findings: Ventricular trigeminy. ED physician has reviewed and interpreted this EKG. Lower Extremity Course/Dx - Course Assessment/Plan: 84 y/o F p/w L hip pain after fall. - XR w L fem neck fracture. No back pain or distal femur pain. Given morphine. NPO. Orthopedics consulted, admit to medicine - Diagnoses Provider Diagnoses: Fall, Femoral neck fracture - Physician Notifications Discussed Care Of Patient With: Tyron Jaramillo Time Discussed With Above Provider: 08:01 Instructed by Provider To: Other - Discussed with Dr. Jaramillo who will see the patient on the floor. [08:08] Discussed with Dr. Goodman who accepts the patient for admission pending labs. Discharge ED - Sign-Out/Discharge Documenting (check all that apply): Patient Departure - Discharge Plan Condition: Stable Disposition: ADMITTED TO [facility] Referrals: Marvin Hernandez MD [Primary Care Provider] - - Billing Disposition and Condition Condition: STABLE Disposition: Admitted to [facility] - Attestation Statements Document Initiated by Luis Albertoibkash: Yes Documenting Scribe: Karma Plasencia Provider For Whom Austin is Documenting (Include Credential): Carson Leary MD Scribe Attestation: Karma Hunt, scribed for aCrson Leary MD on 11/21/19 at 0838. Scribe Documentation Reviewed: Yes Provider Attestation: The documentation as recorded by the Karma batista accurately reflects the service I personally performed and the decisions made by , Carson Leary MD Status of Scribe Document: Viewed
[2019-11-21] MEDS ORDERED: Ondansetron INJ* 2 MG/ML VIAL IV ONE (07:57)
[2019-11-21] MEDS ORDERED: Morphine 4 MG/ML VIAL (1 ml) 4 MG/ML VIAL IV ONE ×2 (07:57→09:44)
[2019-11-21 08:26] LABS: ABS Lymphocytes 1.2 10^3/ul (1.0-4.8); ABS Monocytes 1.1 10^3/ul (0-0.8); ABS Neutrophils 18.9 10^3/ul (1.5-7.7); Eosinophil % 0.2 %; Hematocrit 44 % (35-47); Hemoglobin 15.1 g/dL (12.0-16.0); Lymphocyte % 5.9 %; Mean Corpuscular HGB Conc 34 g/dL (31-36); Mean Corpuscular Hemoglobin 32 pg (27-31); Mean Corpuscular Volume 94 fL (80-97); Mean Platelet Volume 8.5 fL (7.4-10.4); Platelet Count 214 10^3/uL (150-450); Red Blood Count 4.67 10^6 /uL (3.70-4.87); Red Cell Distribution Width 14 % (10-15); White Blood Count 21.3 10^3/uL (3.5-10.8)
--- OUTSIDE RECORDS SUMMARY | 2019-11-21 08:26 | XMS REPORT | Summary of Care ---
:1935 Author Organization [facility] Address [address] [address] Care Team Providers Name Role Phone Marvin Hernandez Primary Care Provider Reason for Visit Reason Comments Follow Up Encounter Details Date Type Department Care Team Description 10/02/2019 Office Visit [facility] Marvin Vick, Anxiety (Primary Dx); [address] sweats; [place] [address] [address] Essential (primary) hypertension; [phone] Polymyalgia (HCC); [place], [place] Psychophysiological insomnia [id number] Allergies Active Allergy Reactions Severity Noted Date Comments Lactose Intolerance GI Reaction 01/14/2018 Diarrhea, bloating Penicillins GI Reaction 01/14/2018 diarrhea documented as of this encounter (statuses as of 10/04/2019) Medications Medication Sig Dispensed Refills Start Date End Date Status predniSONE Take 5 mg by 0 Active (DELTASONE) 1 MG mouth DAILY. Oral Tab Melatonin 3 MG Take 3 mg by 0 Active Oral Tab mouth EVERY BEDTIME. triamterene-hydroc Take 1 Tab by 60 Tab 0 01/09/2019 Active hlorothiazide mouth DAILY (DYAZIDE/MAXZIDE) NEEDED 37.5-25 MG Oral (for htn). Tab zolpidem (AMBIEN) TAKE 1/2-1 30 Tab 5 05/20/2019 Active 10 MG Oral Tab TABLET BY MOUTH AT BEDTIME NEEDED MAXIMUM DAILY DOSE = 1 losartan (COZAAR) Take 1 Tab by 30 Tab 11 06/23/2019 Active 50 MG Oral Tab mouth DAILY. flecainide Take 50 mg by 0 Active (TAMBOCOR) 50 MG mouth. Oral Tab diazepam (VALIUM) Take 1 Tab by 50 Tab 0 09/07/2019 Active 10 MG Oral Tab mouth EVERY EIGHT HOURS NEEDED (anxiety). Max Daily Amount: 30 mg. atorvastatin TAKE 1 TABLET 30 Tab 4 09/25/2019 Active (LIPITOR) 20 MG BY MOUTH Oral Tab DAILY AT BEDTIME predniSONE TAKE 1 TABLET 30 Tab 4 09/25/2019 Active (DELTASONE) 5 MG BY MOUTH Oral Tab DAILY citalopram TAKE 1 TABLET 30 Tab 4 09/25/2019 Active (CELEXA) 10 MG BY MOUTH Oral Tab DAILY Omeprazole 20 MG TAKE 1 TABLET 28 Tab 4 09/25/2019 Active Oral Tab EC BY MOUTH DAILY atenolol TAKE 1 TABLET 30 Tab 4 09/25/2019 Active (TENORMIN) 25 MG BY MOUTH Oral Tab DAILY clonazePAM Take 1 Tab by 30 Tab 0 10/02/2019 Active (KLONOPIN) 0.5 MG mouth THREE Oral Tab TIMES DAILY NEEDED (anxiety). Max Daily Amount: 1.5 mg. clonazePAM TAKE 1 TABLET 60 Tab 0 09/04/2019 Discontinued (KLONOPIN) 1 MG BY MOUTH TWO 0 (Dose Adjustment) Oral Tab TIMES A DAY NEEDED FOR ANXIETY MAXIMUM DAILY DOSE = 2 TABLETS documented as of this encounter (statuses as of 10/04/2019) Active Problems Problem Noted Date PVD (posterior [...] as of this encounter (statuses as of 10/04/2019) Resolved Problems Problem Noted Date Resolved Date Ocular pain, left eye 06/21/2017 04/02/2018 documented as of this encounter (statuses as of 10/04/2019) Immunizations Name Administration Dates Next Due H1N1 Injectable Adult 08/09/2009 Influenza Vaccine High Dose 05/30/2019, 05/28/2019, 05/29/2018, 05/27/2017 Influenza Vaccine Whole 06/10/2008 Pneumococcal Conjugate Vaccine [...] of this encounter Last Filed Vital Signs Not on filedocumented in this encounter Progress Notes Marvin Hernandez MD - 10/02/2019 4:00 PM EST Patient transitioning from Klonopin, to off, using Valium to ameliorate withdrawal symptoms, supervised by her , a retired physician. We are hoping this will help the sweats that she frequentlyhas. Visited with history card clerk, who stated prednisone at 5 mg a day should be continued. She would like to try and taper to off since she gets senile ecchymosis more easily when on prednisone. She realizes we should make one drug change at a time. We will consider reducing the dose when she has made the transition off Klonopin. Has enough Valium to do this transition but not enough Klonopin left over yet, so prescription for smaller dose Klonopin (0.5 mg 3 times daily as needed #30) ordered today. I stop checked, no irregularities noted Reference #: [id number] My Prescriptions Patient Name: Shazia Jj Date: 1935 Address: [address] [place] [address] [place] [id number] Sex: Female Rx Written Rx Dispensed Drug Quantity Days Supply Prescriber Name Payment Method Dispenser 05/20/2019 09/20/2019 zolpidem tartrate 10 mg tablet 30 30 Marvin Hernandez MD Medicare [facility] 09/04/2019 09/08/2019 clonazepam 1 mg tablet 60 30 Marvin Hernandez MD Medicare [facility] 05/20/2019 08/21/2019 zolpidem tartrate 10 mg tablet 30 30 Marvin Hernandez MD Medicare [facility] 05/20/2019 07/22/2019 zolpidem tartrate 10 mg tablet 30 30 SkezasMarvin MD Medicare [facility] 07/17/2019 07/20/2019 clonazepam 1 mg tablet 60 30 SkezMarvin graham MD Medicare [facility] 05/20/2019 06/20/2019 zolpidem tartrate 10 mg tablet 30 30 SkezasMarvin MD Medicare [facility] 06/15/2019 06/16/2019 clonazepam 1 mg tablet 60 30 SkezMarvin graham MD Medicare [facility] 05/20/2019 05/23/2019 zolpidem tartrate 10 mg tablet 30 30 SkezasMarvin MD Medicare [facility] 05/12/2019 05/16/2019 clonazepam 1 mg tablet 60 30 SkezMarvin graham MD Medicare [facility] 02/16/2019 04/19/2019 zolpidem tartrate 10 mg tablet 30 30 SkezasMarvin MD Medicare [facility] 04/08/2019 04/11/2019 clonazepam 1 mg tablet 60 30 SkezasMarvin MD Medicare [facility] 02/16/2019 03/20/2019 zolpidem tartrate 10 mg tablet 30 30 SkezMarvin graham MD Medicare [facility] 03/03/2019 03/06/2019 clonazepam 1 mg tablet 60 30 SkezasMarvin MD Medicare [facility] 02/16/2019 02/19/2019 zolpidem tartrate 10 mg tablet 30 30 SkezMarvin graham MD Medicare [facility] 01/21/2019 01/24/2019 clonazepam 1 mg tablet 60 30 SkezasMarvin MD Medicare [facility] 11/14/2018 01/14/2019 zolpidem tartrate 10 mg tablet 30 30 SkezMarvin graham MD Medicare [facility] 12/15/2018 12/18/2018 clonazepam 1 mg tablet 60 30 SkezMarvin graham MD Medicare [facility] 11/14/2018 12/15/2018 zolpidem tartrate 10 mg tablet 30 30 SkezMarvin graham MD Medicare [facility] 11/14/2018 11/14/2018 clonazepam 1 mg tablet 60 30 SkezMarvin graham MD Medicare [facility] 11/14/2018 11/14/2018 zolpidem tartrate 10 mg tablet 30 30 Marvin Hernandez MD Medicare [facility] Patient Name: Shazia Jj Date: 1935 Address: [address] [place] [address] Sex: Female Rx Written Rx Dispensed Drug Quantity Days Supply Prescriber Name Payment Method Dispenser 09/07/2019 09/07/2019 diazepam 10 mg tablet 50 16 Marvin Hernandez MD Medicare [facility] 08/31/2019 08/31/2019 clonazepam 1 mg tablet 15 30 [facility] 10/17/2018 10/17/2018 clonazepam 1 mg tablet 60 30 Marvin Hernandez MD Insurance [id number] 10/09/2018 10/09/2018 zolpidem tartrate 10 mg tablet 30 30 Marvin Hernandez MD Past Medical History: Diagnosis Date Allergic rhinitis Anxiety CONTROLLED WITH CLONIPINE Basal cell carcinoma of face excised 03/06/19 Benign neoplasm of meninges (HCC) Chronic allergic conjunctivitis SEASONAL ALLERGIES Dizziness Essential (primary) hypertension CONTROLLED WITH MEDS Eye disease MEIBOMITIS Hearing impaired Hyperlipidemia Hypothyroidism Insomnia Osteopenia RA (rheumatoid arthritis) (HCC) Rosacea, acne CONTROLLED WITH METROGEL Tachycardia sees Dr Marti Current Outpatient Medications Medication atenolol (TENORMIN) 25 MG Oral Tab atorvastatin (LIPITOR) 20 MG Oral Tab citalopram (CELEXA) 10 MG Oral Tab clonazePAM (KLONOPIN) 0.5 MG Oral Tab diazepam (VALIUM) 10 MG Oral Tab flecainide (TAMBOCOR) 50 MG Oral Tab losartan (COZAAR) 50 MG Oral Tab Melatonin 3 MG Oral Tab Omeprazole 20 MG Oral Tab EC predniSONE (DELTASONE) 1 MG Oral Tab predniSONE (DELTASONE) 5 MG Oral Tab triamterene-hydrochlorothiazide (DYAZIDE/MAXZIDE) 37.5-25 MG Oral Tab zolpidem (AMBIEN) 10 MG Oral Tab Social history, with grown children. No ethanol or tobacco. is healthcare proxy. Family history is noncontributory Review of systems positive for hearing loss, sweats, anxiety, appetite has been good and weight has been stable. PE: Elderly woman in no distress. Blood pressure 164/82 pulse 74 respirations 18 temperature 98.8 O2 sat 99% on room air weight 139.6 pounds. Decreased hearing in both ears, have to repeat myself multiple times. MSE: Mood not sad, affect not flat. No suicidal or homicidal ideation. No abnormality in thought process or thought content. Insight and judgement good. Well kempt. Impression: Chronic anxiety with chronic clonazepam use, in process of weaning off, using Valium as a bridge to ameliorate symptoms. Also with unexplained sweats. Had prior vasoactive substance work-up which was negative. Sweats did not improve with splitting the dose of prednisone which she takes for polymyalgia rheumatica. Presently not having any polymyalgia symptoms. Hope sweats improve after she is off Klonopin. Should also try to slowly taper prednisone once off Klonopin. Blood pressure elevated today, will watch closely. Follow-up In 1 month 3: 17 PM ESTdocumented in this encounter Plan of Treatment Health Maintenance Due Date Last Done Comments MEDICARE ANNUAL WELLNESS 1935 VISIT ZOSTER IMMUNIZATION SERIES 1983 (1 of 2) PNEUMOCOCCAL 65+YRS (2 of 2 06/06/2013 06/06/2012 - PPSV23) FALL RISK ASSESSMENT 03/13/2020 03/13/2019, 03/13/2019 DEPRESSION SCREENING 06/26/2020 06/26/2019, 06/26/2019 INFLUENZA VACCINE Completed 05/30/2019, 05/28/2019, 05/29/2018, Additional history exists HEPATITIS A IMMUNIZATION Aged Out No longer eligible SERIES based on patient's age to complete this topic HPV IMMUNIZATION SERIES Aged Out No longer eligible based on patient's age to complete this topic MENINGOCOCCAL VACCINE IMM Aged Out No longer eligible based on patient's age to complete this topic documented as of this encounter Goals Goal Patient Goal Associated Recent Patient-Stated? Author Type Problems Progress Blood Pressure Blood Pressure 124/64 No David, < 150/90 (09/04/2019 MD Marvin 4:02 PM EST) Note: This is an individualized treatment (blood pressure) goal for Shazia Jj: Displayed above (on the left) is your goal for blood pressure control. Your most recent blood pressure is also shown above, on the right. You should try to achieve blood pressures that are lower than your goal listed above (on the left). Depression screen (PHQ-9) Depression 8 (06/26/2019 3:41 PM No Marvin Hernandez MD total score < 5 EDT) Note: This is an individualized treatment (depression) [...] filedocumented in this encounter Visit Diagnoses Diagnosis Anxiety Anxiety state, unspecified Night sweats Generalized hyperhidrosis Essential (primary) hypertension Unspecified essential hypertension Polymyalgia (HCC) Polymyalgia rheumatica Psychophysiological insomnia Persistent disorder of initiating or maintaining sleep documented in this encounter Insurance Payer Benefit Plan / Subscriber ID Effective Phone Address Type Group Dates MEDICARE MEDICARE PART A xxxxxxxxxxx 1998-Pres Medicare & B ent COMMERCIAL COMMERCIAL xxxxxxxxxx Effective for Commercial GENERIC GENERIC PLAN all dates Guarantor Name Account Type Relation to Date of Phone Billing Patient Address Shazia Jj Personal/Family 1935 [address] [phone] [place], [place] (Work) [id number] documented as of this encounter
--- OUTSIDE RECORDS SUMMARY | 2019-11-21 08:26 | XMS REPORT | Summary of Care ---
:1935 Author Organization [facility] Address [address] [facility] JOSE Pool [address] Care Team Providers Name Role Phone Marvin Hernandez Primary Care Provider Reason for Visit Reason Comments Labs Only f/u last done 08/27/19 Hypertension f/u BP Medication Check concerned with atenolol as feels causing decrease/low in HR and BP Hip Pain f/u left hip pain especially with laying on Ear Problem ORUTSARARMIUT with back ground noise Encounter Details Date Type Department Care Team Description 10/30/2019 Office Visit [place] Marvin Vick, Anxiety (Primary Dx); [address] Polymyalgia ([facility]); [place] [address] [address] [facility] Night sweats; [phone] Psychophysiological insomnia; [place], [place] Benign neoplasm of meninges ([facility]) [id number] Allergies Active Allergy Reactions Severity Noted Date Comments Lactose Intolerance GI Reaction 01/14/2018 Diarrhea, bloating Penicillins GI Reaction 01/14/2018 diarrhea documented as of this encounter (statuses as of 10/30/2019) Medications Medication Sig Dispensed Refills Start Date End Date Status Melatonin 3 MG Take 3 mg by [...] 5 MG BY MOUTH Oral Tab DAILY clonazePAM Take 1 Tab by 30 Tab 0 10/02/2019 Active (KLONOPIN) 0.5 MG mouth THREE Oral Tab TIMES DAILY NEEDED (anxiety). Max Daily Amount: 1.5 mg. atenolol Take 1 Tab by 90 Tab 3 10/22/2019 Active (TENORMIN) 25 MG mouth DAILY. Oral Tab predniSONE Take 5 mg by 0 Discontinued (DELTASONE) 1 MG mouth DAILY. 0 (Patient stopped Oral Tab the medication) citalopram TAKE 1 TABLET 30 Tab 4 09/25/2019 Discontinued (CELEXA) 10 MG BY MOUTH 0 (Patient stopped Oral Tab DAILY the medication) Omeprazole 20 MG TAKE 1 TABLET 28 Tab 4 09/25/2019 Discontinued Oral Tab EC BY MOUTH 0 (Patient stopped DAILY the medication) documented as of this encounter (statuses as of 10/30/2019) Active Problems Problem Noted Date PVD (posterior [...] as of this encounter (statuses as of 10/30/2019) Resolved Problems Problem Noted Date Resolved Date Ocular pain, left eye 06/21/2017 04/02/2018 documented as of this encounter (statuses as of 10/30/2019) Immunizations Name Administration Dates Next Due H1N1 Injectable Adult 08/09/2009 Influenza Vaccine High Dose 05/30/2019, 05/28/2019, 05/29/2018, 05/27/2017 Influenza Vaccine Whole 06/10/2008 Pneumococcal Conjugate Vaccine 06/06/2012 documented as of this encounter Social History Tobacco Use Types Packs/Day Years Used Date Never Smoker Smokeless Tobacco: Never Used Alcohol Use Drinks/Week oz/Week Comments Yes SOCIAL Sex Assigned at Date Recorded Not on file documented as of this encounter Last Filed Vital Signs Vital Sign Reading Time Taken Comments Blood Pressure 136/62 10/30/2019 4:10 PM EST Pulse 70 10/30/2019 4:10 PM EST Temperature - - Respiratory Rate - - Oxygen Saturation - - Inhaled Oxygen Concentration - - Weight 61.7 kg (136 lb) 10/30/2019 4:10 PM EST Height 160 cm (5' 3") 10/30/2019 4:10 PM EST Body Mass Index 24.09 10/30/2019 4:10 PM EST documented in this encounter Progress Notes Marvin Hernandez MD - 10/30/2019 3:20 PM EST PATIENT: Shazia Jj : 1935 DATE OF SERVICE: 10/30/2019 CHIEF COMPLAINT: Chief Complaint Patient presents with ? Labs Only f/u last done 08/27/19 ? Hypertension f/u BP ? Medication Check concerned with atenolol as feels causing decrease/low in HR and BP ? Hip Pain f/u left hip pain especially with laying on ? Ear Problem ORUTSARARMIUT with back ground noise Subjective HISTORY OF PRESENT ILLNESS: Shazia Jj is a 84-y.o. female. HPI Tried to wean off clonazepam, using diazepam as a bridging agent, but this failed and now she is back on clonazepam. Told her to try decreasing prednisone in case this was causing her night sweats. She is at 5 mg a day and told her to decrease to 4 mg a day. Complains of decreased hearing, offered her appointment with a different commercial front load operator, she will consider. Will be following up with Dr. Byrd, her new professor of kinesiology in November. He did lab work in August showing unremarkable CBC, sed rate 5, CRP less than 1.0, serum chemistries unremarkable. She requests physical therapy for her leg strength, knee pain hip pain and balance. This will be ordered. She was referred to airline captain but canceled the appointment because she did not feel well that day. She had her atenolol dose recently decreased still complains of dizziness all the time withpulse 70. Told her I was not sure what else I could do to help her since she has had extensive evaluation withimaging, lab work, and multiple specialty referrals. Told her we will see what trying to taper prednisone accomplishes, and what physical therapy accomplishes. She will let me know if she would like to proceed with different audiology evaluation. Past Medical History: Diagnosis Date ? Allergic rhinitis ? Anxiety CONTROLLED WITH CLONIPINE ? Basal cell carcinoma of face excised 03/06/19 ? Benign neoplasm of meninges (HCC) ? Chronic allergic conjunctivitis SEASONAL ALLERGIES ? Dizziness ? Essential (primary) hypertension CONTROLLED WITH MEDS ? Eye disease MEIBOMITIS ? Hearing impaired ? Hyperlipidemia ? Hypothyroidism ? Insomnia ? Osteopenia ? RA (rheumatoid arthritis) (HCC) ? Rosacea, acne CONTROLLED WITH METROGEL ? Tachycardia sees Dr Marti Family History Problem Relation Age of Onset ? Stroke Mother ? Stroke Father ? Glaucoma No family history ? Blindness No family history ? Macular Degeneration No family history Current Outpatient Medications Medication Sig ? atenolol (TENORMIN) 25 MG Oral Tab Take 1 Tab by mouth DAILY. ? atorvastatin (LIPITOR) 20 MG Oral Tab TAKE 1 TABLET BY MOUTH DAILY AT BEDTIME ? clonazePAM (KLONOPIN) 0.5 MG Oral Tab Take 1 Tab by mouth THREE TIMES DAILY NEEDED (anxiety). Max Daily Amount: 1.5 mg. ? diazepam (VALIUM) 10 MG Oral Tab Take 1 Tab by mouth EVERY EIGHT HOURS NEEDED (anxiety). Max Daily Amount: 30 mg. ? flecainide (TAMBOCOR) 50 MG Oral Tab Take 50 mg by mouth. ? losartan (COZAAR) 50 MG Oral Tab Take 1 Tab by mouth DAILY. ? Melatonin 3 MG Oral Tab Take 3 mg by mouth EVERY BEDTIME. ? predniSONE (DELTASONE) 5 MG Oral Tab TAKE 1 TABLET BY MOUTH DAILY ? triamterene-hydrochlorothiazide (DYAZIDE/MAXZIDE) 37.5-25 MG Oral Tab Take 1 Tab by mouth DAILY NEEDED (for htn). ? zolpidem (AMBIEN) 10 MG Oral Tab TAKE 1/2-1 TABLET BY MOUTH AT BEDTIME NEEDED MAXIMUM DAILY DOSE = 1 No current facility-administered medications for this visit. Allergies Allergen Reactions ? Lactose Intolerance GI Reaction Diarrhea, bloating ? Penicillins GI Reaction diarrhea Social History Socioeconomic History ? Marital status: Spouse name: Not on file ? Number of children: Not on file ? Years of education: Not on file ? Highest education level: Not on file Occupational History ? Not on file Social Needs ? Financial resource strain: Not on file ? Food insecurity Worry: Not on file Inability: Not on file ? Transportation needs Medical: Not on file Non-medical: Not on file Tobacco Use ? Smoking status: Never Smoker ? Smokeless tobacco: Never Used Substance and Sexual Activity ? Alcohol use: Yes Comment: SOCIAL ? Drug use: No ? Sexual activity: Not on file Lifestyle ? Physical activity Days per week: Not on file Minutes per session: Not on file ? Stress: Not on file Relationships ? Social connections Talks on phone: Not on file Gets together: Not on file Attends gnosticist service: Not on file Active member of club or organization: Not on file Attends meetings of clubs or organizations: Not on file Relationship status: Not on file ? Intimate partner violence Fear of current or ex partner: Not on file Emotionally abused: Not on file Physically abused: Not on file Forced sexual activity: Not on file Other Topics Concern ? Not on file Social History Narrative ? Not on file Over the last 2 weeks, have you been feeling down, depressed, anxious, or hopeless?: 0 Over the past 2 weeks, have you felt little interest or pleasure in doing things ?: 0 REVIEW OF SYSTEMS: Review of Systems Constitutional: Positive for malaise/fatigue. HENT: Positive for hearing loss. Musculoskeletal: Positive for joint pain. Negative for falls. Neurological: Positive for dizziness and focal weakness (legs). Psychiatric/Behavioral: The patient is nervous/anxious. Objective PHYSICAL EXAM: VITALS: BP 136/62 (BP Location: Left arm, Patient Position: Sitting) | Pulse 70 | Ht 5' 3" (1.6 m) | Wt 136 lb (61.7 kg) | BMI 24.09 kg/m Body mass index is 24.09 kg/m. Physical Exam Reveals an elderly woman in no distress. HEENT is unremarkable except for decreased hearing acuitybilaterally. Neck has no adenopathy in the anterior or posterior cervical chains. No JVD or thyromegaly. Lungs clear. Heart regular with occasional extrasystole. Can get out of a chair without difficulty. Mental status exam: Mood is sad and affect is flat. No suicidal or homicidal ideation. Thought processes and thought content intact. Insight and judgment fair. Well-kempt. ASSESSMENT / IMPRESSION: ICD-9-CM ICD-10-CM 1. Anxiety?continue Klonopin as needed, but urged her to use it sparingly 300.00 F41.9 2. Polymyalgia (HCC)?urged her to slowly taper prednisone 725 M35.3 3. Night sweats?unclear etiology with extensive negative work-up 780.8 R61 4. Psychophysiological insomnia? continue Ambien as needed 307.42 F51.04 5. History of meningioma?clinically stable Continue medications as before Consider different audiology evaluation Go to physical therapy Follow-up in 2 months. Author: Marvin Hernandez MD 10/30/2019 23:06 documented in this encounter Plan of Treatment Health Maintenance Due Date Last Done Comments MEDICARE ANNUAL WELLNESS 1935 VISIT ZOSTER IMMUNIZATION SERIES 1983 (1 of 2) PNEUMOCOCCAL 65+YRS (2 of 2 06/06/2013 06/06/2012 - PPSV23) DEPRESSION SCREENING 10/29/2020 10/30/2019, 06/26/2019 FALL RISK ASSESSMENT 10/29/2020 10/30/2019, 10/30/2019 INFLUENZA VACCINE Completed 05/30/2019, 05/28/2019, 05/29/2018, Additional [...] Type Problems Progress Blood Pressure Blood Pressure 136/62 No David, < 150/90 (10/30/2019 MD Marvin 4:10 PM EST) Note: This is an individualized [...] Visit Diagnoses Diagnosis Anxiety Anxiety state, unspecified Polymyalgia (HCC) Polymyalgia rheumatica Night sweats Generalized hyperhidrosis Psychophysiological insomnia Persistent disorder of initiating or maintaining sleep 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
--- OUTSIDE RECORDS SUMMARY | 2019-11-21 08:26 | XMS REPORT | Continuity of Care Document ---
:1935 External Reference #:[id number] Author Name Gómez Marti M.D. (transmitted by agent of provider Elodia De Luna) Address [address] [place] [phone] Care Team Providers Name Role Phone Jeni Bardales MD - Cardiovascular Care Team Information Conditioning Coach Disease Marvin Hernandez MD - Internal Medicine Care Team Information Conditioning Coach Problems Active Problems Provider Date Palpitations Melanie June D.O. Onset: 06/13/2011 Rheumatoid arthritis Everett Moise M.D. Onset: 05/23/2012 Medications Longterm (Current) Use Everett Moise M.D. Onset: 05/23/2012 [...] Date Description Comments Sex Unknown ETOH Use Rarely consumes alcohol Tobacco Use Start: Unknown Patient has never smoked Recreational Drug Use Denies Drug Use Smoking Status Reviewed: 09/30/19 Patient has never smoked Exercise Type/Frequency Does not exercise Allergies, Adverse Reactions, Alerts Active Allergies Reaction Severity Comments Date Penicillin diarrhea 03/06/2007 Methotrexate 2 days of fatigue 09/18/2011 Hydroxychloroquine gi upset 09/18/2011 Propafenone face swelling 06/10/2019 Medications Active Medications SIG Qnty Indications Ordering Provider Date Flecainide Acetate 1 tab by mouth 60tabs Paola Gonzalez, 09/01/2019 50mg daily N.P. Tablets Oxygen 2l via nasal 1units R09.02 Paola Gonzalez, 09/01/2019 Misc cannula at night N.P. Gabapentin take one cap at 60caps M79.7 Chandler Byrd, 08/27/2019 100mg night 09/01/19 pt Capsules has not started yet Prednisone 1 by mouth every Unknown 07/01/2019 5mg Tablets day Atenolol 1 tab po Am and 90tabs Other Ordering 02/05/2013 25mg Tablets 1/2 tablet po PM Provider 9 ( total 37.5 mg) med change Dr. David Mendez 1/2-1 tab po qhs 30tabs Unknown 10mg Tablets prn sleep insomnia Clonazepam 1 -2 tab po at 15tabs Unknown 1mg Tablets night Losartan Potassium 1 tablet po daily Unknown 25mg in the evening Tablets (pt still taking in the am) Melatonin 1 by mouth @ at Unknown 3mg Capsules bedtime as needed Atorvastatin Calcium 1 tablet po daily Unknown PM 20mg Tablets History Medications Triamterene/Hydrochlorothiazide 1 by mouth Unknown 07/01/2019 - 37.5-25mg Capsules Sat09/01/2019 Flecainide Acetate 1 tab by 60tab R00.2 Paola S. 06/25/2019 - 50mg Tablets mouth twice s Foster, N.P. 08/05/2019 daily Propafenone HCL three times 90tab R00.2 Gómez D. 06/03/2019 - 150mg Tablets a day eliana Marti M.D. 06/10/2019 Duloxetine HCL 1 by mouth G89.4 Zsofia 04/17/2019 - 20mg Caps DR Ventura every day KELVIN Rodriguez 03/31/2019 Medications Administered in Office Medication SIG Qnty Indications Ordering Provider Date Inj, Regadenoson, 0.1 MG Ramone Ying M.D. 06/28/2017 Injection Inj, Regadenoson, 0.1 MG Gómez Marti M.D. 06/28/2017 Injection Technetium TC 99M TetrofGómez miles M.D. 06/28/2017 Per Unit Dose Up To 40 Millicuries Injection PPD Everett Moise M.D. 01/08/2011 Injection PPD Nurse Visit 01/08/2011 Injection Immunizations CPT Code Status Date Vaccine Lot # [id number] Given 05/31/2011 Afluria Vaccine [id number] Vital Signs Date Vital Result Comment 09/30/2019 2:35pm Height 64 inches 5'4" Weight 138.00 lb with boots Heart Rate 72 /min BP Systolic Sitting 130 mmHg lue reg cuff BP Diastolic Sitting 70 mmHg lue reg cuff BP Systolic Standing 124 mmHg lue reg cuff BP Diastolic Standing 66 mmHg lue reg cuff Respiratory Rate 15 /min BMI (Body Mass Index) 23.7 kg/m2 Ejection Fraction 60-65% date 05/21/18 ECHO 09/01/2019 1:54pm Height 64 inches 5'4" Weight 137.00 lb Heart Rate 70 /min BP Systolic 117 mmHg Lue reg cuff BP Diastolic 78 mmHg Lue reg cuff BP Systolic Sitting 108 mmHg Lue reg cuff BP Diastolic Sitting 70 mmHg Lue reg cuff Respiratory Rate 18 /min BMI (Body Mass Index) 23.5 kg/m2 Ejection Fraction 60-65% ECHO 05/21/2018 Results Test Acquired Facility Test Result H/L Range Note Date Laboratory test 08/27/2019 [facility] Erythrocyte Sed 5 mm/Hr Normal 0-[address] [address] [phone] CBC Auto Diff 08/27/2019 [facility] White Blood 10.4 Normal 3.5-10.[address] Count 10^3/uL [place], [place] [id number] [phone] Red Blood Count 4.47 10^6/uL Normal 3.70-4.87 Hemoglobin 14.6 g/dL Normal 12.0-16.0 Hematocrit 43 % Normal 35-47 Mean Corpuscular Volume 96 fL Normal 80-97 Mean Corpuscular Hemoglobin 33 pg High 27-31 Mean Corpuscular HGB Conc 34 g/dL Normal 31-36 Red Cell Distribution Width 14 % Normal 10-15 Platelet Count 246 10^3/uL Normal 150-450 Mean Platelet Volume 8.7 fL Normal 7.4-10.4 Abs Neutrophils 8.1 10^3/uL High 1.5-7.7 Abs Lymphocytes 1.4 10^3/uL Normal 1.0-4.8 Abs Monocytes 0.8 10^3/uL Normal 0-0.8 Abs Eosinophils 0.1 10^3/uL Normal 0-0.6 Abs Basophils 0.0 10^3/uL Normal 0-0.2 Abs Nucleated RBC 0.0 10^3/uL Granulocyte % 77.9 % Lymphocyte % 13.7 % Monocyte % 7.5 % Eosinophil % 0.5 % Basophil % 0.4 % Nucleated Red Blood Cells % 0.0 Comp Metabolic 08/27/2019 [facility] Sodium 135 mmol/L Normal 135-[address] [place] [address] [phone] Potassium 4.1 mmol/L Normal 3.5-5.0 Chloride 102 mmol/L Normal 101-111 Co2 Carbon Dioxide 27 mmol/L Normal 22-32 Anion Gap 6 mmol/L Normal 2-11 Glucose 86 mg/dL Normal 70-100 Blood Urea Nitrogen 16 mg/dL Normal 6-24 Creatinine 0.80 mg/dL Normal 0.51-0.95 BUN/Creatinine Ratio 20.0 Normal 8-20 Calcium 9.3 mg/dL Normal 8.6-10.3 Total Protein 5.9 g/dL Low 6.4-8.9 Albumin 4.1 g/dL Normal 3.2-5.2 Globulin 1.8 g/dL Low 2-4 Albumin/Globulin Ratio 2.3 Normal 1-3 Total Bilirubin 0.40 mg/dL Normal 0.2-1.0 Alkaline Phosphatase 65 U/L Normal 34-104 Alt 12 U/L Normal 7-52 Ast 17 U/L Normal 13-39 Egfr Non- 68.0 >60 Egfr 82.3 >60 1 Laboratory test 08/27/2019 [facility] C Reactive < 1.00 Normal <8.[address] Protein mg/[place] [address] [phone] Basic Metabolic 08/10/2019 [facility] Sodium 133 Low 135-[address] mmol/[place] [address] [phone] Potassium 4.0 mmol/L Normal 3.5-5.0 Chloride 98 mmol/L Low 101-111 Co2 Carbon Dioxide 28 mmol/L Normal 22-32 Anion Gap 7 mmol/L Normal 2-11 Glucose 117 mg/dL High 70-100 Blood Urea Nitrogen 16 mg/dL Normal 6-24 Creatinine 0.79 mg/dL Normal 0.51-0.95 BUN/Creatinine Ratio 20.3 High 8-20 Calcium 9.3 mg/dL Normal 8.6-10.3 Egfr Non- 69.0 >60 Egfr 83.5 >60 2 Laboratory test 08/10/2019 [facility] Magnesium 2.0 mg/dL Normal 1.9-2.[address] [place] [address] [phone] TSH (Thyroid Stim Horm) 2.78 mcIU/mL Normal 0.34-5.60 Basic Metabolic 06/15/2019 [facility] Sodium 134 mmol/L Low 135-[address] [place] [address] [phone] Potassium 3.7 mmol/L Normal 3.5-5.0 Chloride 99 mmol/L Low 101-111 Co2 Carbon Dioxide 29 mmol/L Normal 22-32 Anion Gap 6 mmol/L Normal 2-11 Glucose 96 mg/dL Normal 70-100 Blood Urea Nitrogen 16 mg/dL Normal 6-24 Creatinine 0.85 mg/dL Normal 0.51-0.95 BUN/Creatinine Ratio 18.8 Normal 8-20 Calcium 9.2 mg/dL Normal 8.6-10.3 Egfr Non- 63.6 >60 Egfr 76.9 >60 4 1 Because ethnic data is not always readily [...] 15-29 5 Kidney failure <15 (or dialysis) 2 Because ethnic data is not always [...] 5 Kidney failure <15 (or dialysis) 3 [id number] 4 Because ethnic data is not always [...] Kidney failure <15 (or dialysis) Procedures Date Code Description Status 09/01/2019 34323 EKG Tracing & Interpretation Completed 08/06/2019 21432 Holter Monitor Review (24 hr)dr review & interp only Completed 07/31/2019 39468 ECG Monitor/Recording W/Visual Superimposition Completed Scanning 07/02/2019 12315 EKG Tracing & Interpretation Completed 12/18/2018 [id number] Bone Mineral Density Test Completed 12/05/2015 [id number] Bone Mineral Density Test Completed 07/02/2012 [id number] Bone Mineral Density Test Completed Medical Devices Description No Information Available Encounters Type Date Location Provider Dx Diagnosis Office Visit 09/01/2019 [facility] Paola Gonzalez, I10 Essential ( primary) 2:00p Of [employer] N.P. 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 I10 Essential (primary) hypertension R94.31 Abnormal electrocardiogram [ECG] [EKG] I49.1 Atrial premature depolarization R42 Dizziness and giddiness Office Visit 06/25/2019 2:30p [facility] Paola Gonzalez, R00.2 Palpitations Of [employer] N.P. I10 Essential (primary) hypertension I49.1 Atrial premature depolarization Office Visit 06/03/2019 4:00p [facility] Gómez Valencia R00.2 Pal[facility]ations [facility] [place] Marti M.D. I10 Essential (primary) hypertension I49.1 Atrial premature depolarization Office Visit 05/19/2019 8:51a [facility] Lise Diallo, Z48.02 Encounter for Home N.P. removal of sutures W19.xxxA Unspecified fall, initial encounter Office Visit 04/17/2019 8:30a [facility] Gómez Valencia R00.2 Pal[facility] [place] Marti M.D. I48.0 Paroxysmal atrial fibrillation I10 Essential (primary) hypertension Assessments Date Code Description Provider 09/30/2019 I49.3 Ventricular premature depolarization Gómez Marti M.D. 09/30/2019 I10 Essential (primary) hypertension Gómez Marti M.D. 09/30/2019 R94.31 Abnormal electrocardiogram [ECG] [EKG] Gómez Marti M.D. 09/01/2019 I49.3 Ventricular premature depolarization Gómez Marti M.D. 09/01/2019 I10 Essential (primary) hypertension Paola Gonzalez, N.P. 09/01/2019 R94.31 Abnormal electrocardiogram [ECG] [EKG] Paola Gonzalez, N.P. 09/01/2019 R42 Dizziness and giddiness Paola Gonzalez, N.P. 09/01/2019 I49.3 Ventricular premature depolarization Paola Gonzalez, N.P. 09/01/2019 R09.02 Hypoxemia Paola Gonzalez, N.P. 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 08/06/2019 I49.1 Atrial premature depolarization Gómez Marti M.D. 08/05/2019 R00.2 Palpitations Paola Gonzalez, N.P. 08/05/2019 I10 Essential (primary) hypertension Paola Gonzalez, N.P. 08/05/2019 R94.31 Abnormal electrocardiogram [ECG] [EKG] Paola Gonzalez, N.P. 08/05/2019 I49.1 Premature atrial contraction Paola Gonzalez, N.P. 08/05/2019 R42 Dizziness and giddiness Paola Gonzalez, N.P. 07/31/2019 I49.3 Ventricular premature depolarization Nurse Visit IC 07/31/2019 I49.1 Atrial premature depolarization Nurse Visit IC 07/02/2019 R00.2 Palpitations Nurse Visit IC 07/02/2019 I10 Essential (primary) hypertension Nurse Visit IC 07/02/2019 R94.31 Abnormal electrocardiogram [ECG] [EKG] Nurse Visit IC 06/25/2019 R00.2 Palpitations Paola Gonzalez, N.P. 06/25/2019 I10 Essential (primary) hypertension Paola Gonzalez, N.P. 06/25/2019 I49.1 Premature atrial contraction Paola Gonzalez N.P. 06/03/2019 R00.2 Palpitations Gómez Marti M.D. 06/03/2019 I10 Essential (primary) hypertension Gómez Marti M.D. 06/03/2019 I49.1 Premature atrial contraction Gómez Marti M.D. 05/19/2019 Z48.02 Encounter for removal of sutures Lise Diallo N.P. 05/19/2019 W19.xxxA Unspecified fall, initial encounter Lise Diallo N.P. 04/17/2019 R00.2 Palpitations Gómez Marti M.D. 04/17/2019 I48.0 Paroxysmal atrial fibrillation Gómez Marti M.D. 04/17/2019 I10 Essential (primary) hypertension Gómez Marti M.D. Plan of Treatment Future Appointment(s):10/22/2019 1:10 pm - Cardiology Doctor Loc 39 at [facility] [place]11/27/2019 3:30 pm - Chandler Byrd MD at [facility]09/30/2019 - Gómez Marti M.D.I49.3 Ventricular premature depolarizationFollow up:6 [id number] Essential (primary) [id number] Abnormal electrocardiogram [ECG] [EKG] Functional Status Description No Information Available Mental Status Description No Information Available Referrals Refer to Dr Reason for Referral Status Appt Date Stephanie Callaway MD hypoxemia at night; eval for LUDMILA Sent [address] [place] [phone] Mickey Etienne MD frequent PACs, intolerant of propafenone [address] [place] [address] [phone]
[2019-11-21 08:41] LABS: Albumin/Globulin Ratio 1.7 (1-3); Calcium 9.3 mg/dL (8.6-10.3); EGFR African American 71.8 (>60); EGFR Non-African American 59.4 (>60); Globulin 2.3 g/dL (2-4); Magnesium 1.9 mg/dL (1.9-2.7); Potassium 3.1 mmol/L (3.5-5.0); Total Bilirubin 0.8 mg/dL (0.2-1.0); Total Protein 6.3 g/dL (6.4-8.9)
[2019-11-21] MEDS ORDERED: Potassium Chlor TAB* 20 MEQ TAB.ER PO ONE ×2 (09:42→12:00)
[2019-11-21] MEDS ORDERED: Ondansetron INJ* 2 MG/ML VIAL IV PRN (09:46)
[2019-11-21] MEDS ORDERED: Acetaminophen TAB* 325 MG PO ONE (09:50)
[2019-11-21] MEDS ORDERED: traMADol TAB* 50 MG PO ONE (10:04)
[2019-11-21] MEDS ORDERED: Losartan TAB* 25 MG PO ONE (10:05)
[2019-11-21 10:36] LABS: TSH (Thyroid Stimulating Horm) 4.53 mcIU/mL (0.34-5.60)
[2019-11-21] MEDS ORDERED: clonazePAM TAB(*) 1 MG PO PRN (10:46)
[2019-11-21 10:58] LABS: Urine Appearance Clear; Urine Bilirubin Negative (Negative); Urine Blood 2+ (Negative); Urine Color Yellow; Urine Glucose Negative (Negative); Urine Ketones Negative (Negative); Urine Nitrite Negative (Negative); Urine Protein Negative (Negative); Urine Urobilinogen Negative (Negative)
[2019-11-21 10:59] LABS: Urine Bacteria Absent (Absent); Urine Red Blood Cell Trace(0-2/hpf) (Absent); Urine White Blood Cell Absent (Absent)
[2019-11-21] MEDS: NS 0.9% 1000 ML** 1,000 ML IV SCH (11:31)
--- NOTE | 2019-11-21 11:48 | CONS ---
ORTHOPEDICS CONSULTATION NOTE: DATE OF CONSULT: 11/21/19 PROVIDER: Dr. Tyron Jaramillo. CHIEF COMPLAINT: Left hip pain. HISTORY OF PRESENT ILLNESS: Ms. Jj is an 84-year-old female who presented to the emergency room w ith a chief complaint of left hip pain after she fell at about 4 o'clock this morning. She states th at she had to go to bathroom and got up out of her bed too quickly. She had some dizziness causing h er to fall. She denies any loss of consciousness. She denies any chest pain or shortness of breath at the time of fall. She denies hitting her head and denies any other injury. She was unable to elgin r weight and was transported to the emergency room via ambulance. PAST MEDICAL HISTORY: Hypertension, coronary artery disease, hyperlipidemia, polymyalgia rheumatica, and paroxysmal atrial fibrillation. PAST SURGICAL HISTORY: Hysterectomy, cataracts, and tonsillectomy. She reports no complications wit h anesthesia. CURRENT MEDICATIONS: 1. Atenolol 25 mg p.o. daily. 2. Triamterene/HCTZ 37.5/25 mg daily. 3. Losartan 50 mg daily. 4. Omeprazole 20 mg daily. 5. Zolpidem 10 mg at bedtime. 6. Clonazepam 1 to 2 mg p.o. daily. 7. Prednisone 3 mg every other day. 8. Prednisone 5 mg every other day. 9. Melatonin/pyridoxine HCL 3 mg tablets at bedtime as needed. ALLERGIES: PENICILLIN. FAMILY HISTORY: Noncontributory. SOCIAL HISTORY: The patient is retired. She lives at [facility] with her . She ambulates normall y without any assistive devices. She denies tobacco or alcoholic beverage use. REVIEW OF SYSTEMS: A 14-point review of systems was discussed with the patient. All systems were neg ative except discussed in the HPI. PHYSICAL EXAM: Vital Signs: Blood pressure 176/74, temperature 97.3, pulse 73, respirations 18, oxy gen saturation 100% on room air. She is 5 feet 4 inches and 135 pounds. General: She is alert and oriented x3, in no acute distress, lying in bed. HEENT: Normocephalic, atraumatic. Her hearing and vision are grossly intact. She is slightly hard of hearing. Cardiovascular: Regular rate and rhyt hm. No murmurs, rubs, or gallops appreciated. Respiratory: Her lungs are clear to auscultation nathan aterally. There are no wheezes, rales, or rhonchi. Her abdomen is soft. She has mild tenderness of the lower abdomen. She has normal bowel sounds. Extremities: Exam of the left lower extremity, th e left leg is slightly shortened and internally rotated. She is tender to palpation along the latera l aspect of the left hip. She is nontender throughout the thigh, knee, or down through the ankle. S he has full dorsiflexion and plantarflexion of the ankle. Sensation to light touch is intact. She medel s 2+ dorsalis pedis pulse. Exam of the right lower extremity, she has a 7 cm x 2 cm long skin tear a t the medial aspect of her mid calf with a small area of ecchymosis surrounding this. She is nontend er to palpation throughout the right lower extremity. She is also nontender to palpation throughout bilateral upper extremities. DIAGNOSTIC STUDIES/LAB DATA: Imaging: X-ray of the pelvis, left hip and femur, shows a femoral neck fracture with displacement. Laboratory findings: The patient has white blood cell count of 21.3, H and H 15.1 and 44, platelets of 214. Urinalysis was pending. EKG shows ventricular trigeminy. IMPRESSION: Left hip displaced femoral neck fracture. PLAN: Dr. Jaramillo was contacted regarding the care of this patient as well as the Hospitalist Service . They would like Cardiology to evaluate for optimization prior to surgery. Once the patient is med ically stable for surgery, the plan will be for a left hip hemiarthroplasty. At this time, it was re commended that a Ybarra catheter be placed and the patient will be on bedrest. Orthopedics will baljit nue to follow. Thank you for this consultation. JOSE SMITH [id number]/[facility] #: [id number]
--- NOTE | 2019-11-21 12:46 | HP ---
AMENDED REPORT NOW INCLUDES DESIGNATED COSIGNER - ESIGNED BEFORE ADJUSTMENTS ADMISSION HISTORY AND PHYSICAL: DATE OF ADMISSION: 11/21/19 PRIMARY CARE PHYSICIANS: Dr. Hernandez and Dr. Marti. PROVIDER: Jo-Ann Day NP ATTENDING PHYSICIAN: Dr. Goodman.* (DICTATED BY JO-ANN DAY NP) OTHER PROVIDER: Dr. Louis. CODE STATUS CONVERSATION: The patient has opted to be a DNR/DNI. A new MOLST form was filled out. CHIEF COMPLAINT: Left hip pain. HISTORY OF PRESENT ILLNESS: This is an 84-year-old female with a past medical history significant for CAD, hypertension, hypercholesterolemia, and polymyalgia rheumatica, who came to the emergency room this morning after falling at home around 4 a.m. She stated that she had gotten up to go to the bathroom, became dizzy and fell. She did not lose consciousness, was unsure but did not feel that she had hit her head. At the time of the fall, she denied any chest pain; however, she was experiencing palpitations, though she says that she has been feeling frequent palpitations every day for the past several years and has been followed by Dr. Marti on an outpatient basis and has received flecainide recently without much relief. She states that she has been feeling lightheaded for the past week, but over the last couple of days she has also developed dizziness as well with room spinning. She states that the dizziness has happened to her in the past, was unable to state exact triggers, did not feel that it was related to position changes or movement of her head; however, when she lies down and rests, it seems to make it feel better. She, of note, has worsening hearing and wears bilateral hearing aids. She also over the past week has become increasingly short of breath especially when doing housework and has been fatigued. She reports having poor appetite for several months and forces herself to eat. In the emergency room, labs were drawn and x- rays were taken of her left femur, pelvis, and her chest and hospitalists were asked to evaluate the patient for admission. PAST MEDICAL HISTORY: Coronary artery disease, angina, hypercholesterolemia, hypertension, obstructive sleep apnea when only on her back and she does not use a CPAP, polymyalgia rheumatica, urinary incontinence. PAST SURGICAL HISTORY: Hysterectomy, bilateral cataract extraction, and tonsillectomy. HOME MEDICATIONS: 1. Zolpidem 10 mg p.o. at bedtime. 2. Omeprazole 20 mg p.o. daily. 3. Atenolol 25 mg p.o. daily. 4. Prednisone 5 mg p.o. daily. 5. Clonazepam 1 to 2 mg p.o. daily. 6. Melatonin/pyridoxine 1 tab p.o. at bedtime as needed. 7. Losartan 50 to 100 mg p.o. daily. ALLERGIES: To MILK and PENICILLINS. FAMILY HISTORY: Her grandmother had cancer, which she states was of female organs, but unsure which one. Her mother had a stroke. SOCIAL HISTORY: Never smoked tobacco. Denies any EtOH or recreational substance use. She never worked. She stated that she stayed at home and is . [facility]. REVIEW OF SYSTEMS: A 12-point system review was performed, which was positive for poor appetite, fatigue, shortness of breath, palpitations, urinary incontinence, hard of hearing, but denies any subjective fevers, chills, chest pain, coughing, abdominal pain, nausea, vomiting, diarrhea, and no visual complaints. PHYSICAL EXAMINATION GENERAL: This is a well-developed, older woman seen resting in the bed, in mild distress. VITAL SIGNS: 97.3 Fahrenheit, 76 pulse, 22 respirations, 99% oxygen on room air , and 167/88 blood pressure. RESPIRATORY: Lung sounds clear throughout bilaterally on room air. No accessory muscle use noted. HEART: Rate is irregular. No murmurs, gallops, or rubs appreciated. No carotid bruits. ABDOMEN: Soft, nontender, nondistended with positive bowel sounds x4. MUSCULOSKELETAL: Unable to move left leg due to pain. 2+ positive pedal pulses. There is noted left leg shortening and external rotation. Cap refill is within 3 seconds. NEURO: Sensation is intact to light touch. She again is able to dorsi and plantarflex the left foot. PSYCH: She is alert and oriented x4. Thought content organized. SKIN: She has a bruise to the left side of her neck. Right calf skin tear measuring 2.3 x 1.7 cm. She also has a small skin tear to the left forearm. No other open areas appreciated. DIAGNOSTIC STUDIES/LAB DATA: She had left femur x-ray, which showed fracture neck of the left femur with overriding of the fracture fragments. Chest x-ray showed cardiomegaly without evidence of pneumonia. X-ray of the pelvis showed fracture neck of the left femur with overriding of the fracture fragment. Pelvic ring is grossly intact. Pertinent lab data: WBCs 21.3, hemoglobin 15.1, hematocrit 44. Potassium 3.1, magnesium 1.9, chloride 98, glucose 131. Urine showed 2+ blood; however, no other significant findings. ASSESSMENT AND PLAN: My impression is that this is an 84-year-old female with a past medical history significant for coronary artery disease, hypercholesterolemia, hypertension, polymyalgia rheumatica, who is admitted on 11/21/19 for a left femur fracture with plans to go to the OR tomorrow pending a cardiac workup. 1. Left femur fracture. She sustained this due to a fall that was likely caused by a presyncopal episode. Dr. Jaramillo was consulted in the ED and the plan is to take the patient to surgery tomorrow should she be able to be cleared cardiac munguia. Her RCRI score is 1, which equals 6% risk of myocardial infarction, , or cardiac arrest. Her METs are less than 4. Her EKG did show ventricular trigeminy and coupled with fact that she has been dealing with ongoing palpitations and shortness of breath. Cardiology has been consulted and I would appreciate their input for further workup. In the meantime, she is to be kept on bedrest. She will be allowed to have a regular diet and n.p.o. after midnight. Pain control will consist of scheduled Tylenol, tramadol, and p.r.n. morphine. She will also be hydrated with normal saline at 75. I already spoke to the patient about likely course of action and the fact that she will get postoperative PT/OT and she is requesting to be placed in [facility] for rehab. 2. Ventricular trigeminy. Her potassium levels are low, so I will be replacing with 2 doses of oral potassium. Her magnesium levels do not require repletion. Cardiology consult has been placed with Dr. Louis. An echocardiogram has been ordered as her last one was in 2018 and at that time her ejection fraction was 60% to 65% with normal LV function. It is likely that this may have contributed to her dizziness and to her fall this morning and she will be kept on telemetry monitoring on the floor. 3. Leukocytosis. Her white blood cell count was over 21. In the absence of any other signs or symptoms of infection, I believe that this can be attributed to her chronic use of prednisone for her polymyalgia rheumatica and at this time I do not feel that she requires any antibiotics. 4. Polymyalgia rheumatica. She is to continue her prednisone 5 mg p.o. daily. 5. Hypertension. Her blood pressures in the emergency room have consistently been in the 160s to 170s. I ordered 100 mg of losartan which she can continue daily as well as her 25 mg of atenolol as she had no medication yet today. 6. Anxiety. She has been chronic user of clonazepam for over 20 years, which she primarily takes at night and has a rescue dose during the day, which I have continued. 7. DVT prophylaxis is heparin subcu. 8. Code status is DNR. 9. Disposition is to admit inpatient to short-stay surgical. 10. Condition is guarded. TIME SPENT: Time spent on the patient is about 60 minutes with 30 of that spent [id number]. JO-ANN DAY, DEAN OF BOYS [id number]/[facility] #: [id number] KAYLEIGH
[2019-11-21] MEDS ORDERED: KCL 20 MEQ/100 ML IVPREMIX* 20 MEQ/100 ML BAG IV ONE (12:53)
[2019-11-21] MEDS ORDERED: Magnesium Sulfate 1 GM IV* 1 GM/100 ML BAG IV ONE (12:53)
--- NOTE | 2019-11-21 14:00 | CONS ---
CARDIOLOGY CONSULTATION: DATE OF CONSULT: 11/21/19 REQUESTING PROVIDERS: JOSE Lawler; Dr. Goodman; and Jacinta Day NP. REASON FOR EVALUATION: Arrhythmias, preoperative consultation. HISTORY OF PRESENT ILLNESS: This is a very pleasant 84-year-old woman with a history of APCs, PVCs, and by history paroxysmal atrial fibrillation. The patient is awake and oriented and able to give me a history, but is unsure about the history of atrial fibrillation or the reason she is not on anticoagulation. She has multiple complaints and over the last couple years has had episodes of sweats, fatigue, lightheadedness, and vertigo. She said that she was able to walk to the main building at [facility] last week with her , but had to hold on for balance. She denied any chest pain or shortness of breath with that. She apparently has been followed by Dr. Marti and has been on flecainide for her arrhythmias and was seen most recently in September and was felt to be stable from prolonged episodes of palpitation standpoint. She had stopped the triamterene and increased her atenolol at that time and was on flecainide 50 mg a day. She got up at 4 a.m. to go to bathroom and apparently fell and broke her left hip. She is now admitted for hip fracture and for anticipated repair tomorrow. She has also been noted to have trigeminy on her EKG. She has a history of frequent PVCs and has been followed by Dr. Marti for this issue, and in fact her EKG from 09/01/19 revealed trigeminy with inferior axis, left bundle-branch block morphology similar to today's EKG. She denies any previous chest pain, rheumatic fever, syncope. PAST MEDICAL HISTORY: She does have a history of hypertension, hyperlipidemia, and polymyalgia rheumatica, dizziness, pvc's, apc's. Paroxysmal afib. PAST SURGICAL HISTORY: Includes cataract surgery, hysterectomy, and skin cancer removed from her left forehead. MEDICATIONS: Reportedly are: 1. Atenolol 25 mg in the morning and half a tablet in the evening. Here, she is taking 25 mg once a day. 2. Clonazepam 1 mg at bedtime. 3. Acetaminophen 975 mg t.i.d. 4. Heparin 5000 units subcu. 5. Pantoprazole 40 mg daily. 6. Prednisone 5 mg a day. 7. Sodium chloride 75 cc an hour. 8. Tramadol 50 mg q.6. As an outpatient, she was also on: 1. Flecainide 50 mg a day. 2. Gabapentin. 3. Prednisone 5 mg a day. 5. Atenolol 25 mg in the morning and half a tablet in the evening. 6. Ambien 10 mg half a tablet to 1 tablet p.r.n. 7. Losartan 25 mg a day. 8. Melatonin 3 mg a day. 9. Atorvastatin 20 mg daily. ALLERGIES: She denied allergies, but Dr. Marti has listed PENICILLIN, diarrhea ; METHOTREXATE; HYDROXYCHLOROQUINE; PROPAFENONE with facial swelling. SOCIAL HISTORY: She is , has 3 adult children, was a homemaker. She denies alcohol use. She has 1 cup of tea a day. She denies tobacco use. REVIEW OF SYSTEMS: She denies asthma or emphysema, strokes or mini strokes. Review of systems x10 was negative except as above. PHYSICAL EXAM: She is a well-developed, well-nourished female, in no apparent distress, lying flat in bed, unable to move due to the fracture. Blood pressure 167/88, pulse of 74. Atraumatic, normocephalic. Extraocular muscles intact. Sclerae anicteric. No significant JVD. Carotids 2+ without bruits. No cervical adenopathy. No thyromegaly. Cardiac Exam: S1, S2 with a soft 1/6 systolic ejection murmur at the base. Chest was clear anteriorly. Abdomen: Bowel sounds present. Nontender. Femoral pulse intact on the right, not palpated on the left due to the hip fracture. Distal pulses intact bilaterally. No edema. Motor strength 5/5 bilaterally in the upper extremities , not tested in the lower extremities. Deep tendon reflexes 2/4 in the upper extremities. Alert and oriented x3. DIAGNOSTIC STUDIES/LAB DATA: EKG as mentioned revealed sinus rhythm with frequent PVCs, PVCs are monomorphic; inferior axis; left bundle-branch block morphology and this EKG was similar to the previous of August. She did have a Holter monitor in July, which revealed sinus rhythm with frequent PVCs 4100, PACs 1200. No sustained arrhythmia. No runs of AFib. Runs of ventricular bigeminy. No symptoms and average heart rate was 70. She did have an event monitor performed in April of 2019, which revealed sinus rhythm with frequent PACs and PVCs approximately 11% of the time. No significant bradycardia. Symptoms of skipped beats coincided with sinus rhythm with PACs with many episodes of PVCs without symptoms. Her echocardiogram from April of 2018 revealed normal global wall motion, EF of 60% to 65%, trace aortic stenosis, trace MR, mild TR, and significant pericardial effusion similar to January of 2016. There was no LVH. She had a nuclear stress test in June 2017, which revealed normal LV function. No evidence of ischemia or infarct. Low risk. Her labs here include a white count of 21.3, hematocrit of 44, platelet count of 214. Potassium low at 3.1, BUN of 18, creatinine of 0.9, mag of 1.9. Chest x-ray report is pending. IMPRESSION AND PLAN: My impression is that Ms. Jj has a history of paroxysmal atrial fibrillation, premature ventricular contractions, atrial premature contractions, hypertension, hyperlipidemia, and now presents with a left hip fracture after a fall and hypokalemia. She has multiple complaints of dizziness, vertigo, and fatigue of unclear etiology. It is unclear if her arrhythmia is contributing or not. The morphology of the premature ventricular contractions appears to be inferior axis, left bundle-branch block and may represent right ventricular outflow tract ectopy, which may be a relatively benign finding. Given her negative workup for structural heart disease or ischemia, I think she can proceed with surgery at relatively low risk after potassium replacement. I am concerned about her low potassium and would strongly recommend correcting that to above 4 prior to surgery. It is unclear from the patient whether flecainide was helpful or not for her arrhythmias. I suggest holding flecainide for now. Once her potassium has been corrected, we can consider restarting flecainide or perhaps starting amiodarone once her flecainide has been held for 4 half lives. Long-term, she may be better served by amiodarone than with flecainide, but I will defer to Dr. Marti when he returns next week since he is her primary dispatcher maintenance. She is hypertensive here, but has been normotensive or low normal blood pressures in the past evaluations. It may be that her anxiety and pain are contributing to her elevated blood pressures now. If needed, we would consider using a low dose of amlodipine for blood pressure; however, I suggest watching for hypotension as well once her pain is controlled. She has not been anticoagulated for her paroxysmal atrial fibrillation. I would defer decision on that to Dr. Marti, her primary dispatcher maintenance. It is possible that she has not been on anticoagulation because of her balance problems and concerns about the risk of falling, injury, and bleeding. We would minimize caffeine. Discussed with Jacinta Day. [id number]/[facility] #: [id number] KAYLEIGH
[2019-11-21] MEDS: Morphine INJ* 2 MG/ML 1 ML SYRINGE (TWO MG - NEW SYRINGE VERSION) IV PRN ×2 (14:24→21:30)
[2019-11-21] MEDS: Acetaminophen TAB* 325 MG PO SCH ×2 (14:24→19:59)
[2019-11-21] MEDS: Heparin VIAL(*) 5000 UNITS/ML VIAL (FIVE THOUSAND) SUBCUT SCH ×2 (14:24→21:35)
[2019-11-21] MEDS: clonazePAM TAB(*) 1 MG PO SCH (19:58)
[2019-11-21] MEDS: traMADol TAB* 50 MG PO PRN (19:59)
[2019-11-22] MEDS: NS 0.9% 1000 ML** 1,000 ML IV SCH ×2 (00:09→17:58)
[2019-11-22] MEDS: Morphine INJ* 2 MG/ML 1 ML SYRINGE (TWO MG - NEW SYRINGE VERSION) IV PRN ×2 (04:44→22:54)
[2019-11-22 04:52] LABS: ABS Eosinophils 0.1 10^3/ul (0-0.6); ABS Lymphocytes 0.7 10^3/ul (1.0-4.8); ABS Monocytes 0.7 10^3/ul (0-0.8); ABS Neutrophils 7.7 10^3/ul (1.5-7.7); Hematocrit 39 % (35-47); Hemoglobin 13.3 g/dL (12.0-16.0); Mean Corpuscular HGB Conc 34 g/dL (31-36); Mean Corpuscular Hemoglobin 33 pg (27-31); Mean Corpuscular Volume 95 fL (80-97); Mean Platelet Volume 8.7 fL (7.4-10.4); Platelet Count 167 10^3/uL (150-450); Red Blood Count 4.09 10^6 /uL (3.70-4.87); Red Cell Distribution Width 14 % (10-15); White Blood Count 9.3 10^3/uL (3.5-10.8)
[2019-11-22 05:08] LABS: BUN/Creatinine Ratio 17.2 (8-20); Calcium 8.2 mg/dL (8.6-10.3); EGFR African American 69.2 (>60); EGFR Non-African American 57.2 (>60); Potassium 4.5 mmol/L (3.5-5.0)
[2019-11-22] MEDS: Pantoprazole TAB * 40 MG TAB PO SCH (07:52)
[2019-11-22] MEDS: Acetaminophen TAB* 325 MG PO SCH ×3 (07:52→21:06)
--- NOTE | 2019-11-22 08:39 | PN ---
Subjective Date of Service: 11/22/19 Interval History: HOSPITALIST PROGRESS NOTE Patient seen and examined at bedside. Care reviewed and d/w Tayla Garcia RN. She c/o left hip pain, otherwise offers no other complaints. Family History: Unchanged from Admission Social History: Unchanged from Admission Past Medical History: Unchanged from Admission Objective Active Medications: Acetaminophen (Tylenol Tab*) 975 mg PO TID [facility] Last Admin: 11/22/19 07:52 Dose: 975 mg Atenolol (Tenormin Tab*) 25 mg PO DAILY [facility] Clonazepam (Klonopin Tab(*)) 1 mg PO BEDTIME [facility] Last Admin: 11/21/19 19:58 Dose: 1 mg Clonazepam (Klonopin Tab(*)) 1 mg PO DAILY PRN PRN Reason: ANXIETY Heparin Sodium (Porcine) (Heparin Vial(*)) 5,000 units SUBCUT Q8H [facility] Sodium Chloride (Ns 0.9% 1000 Ml) 1,000 mls @ 75 mls/hr IV PER RATE [facility] Last Admin: 11/22/19 00:09 Dose: 75 mls/hr Morphine Sulfate (Morphine Inj (Syringe))*) 4 mg IV Q4H PRN PRN Reason: PAIN - MILD Last Admin: 11/22/19 04:44 Dose: 4 mg Ondansetron HCl (Zofran Inj*) 4 mg IV Q4H PRN PRN Reason: NAUSEA/VOMITING Pantoprazole Sodium (Protonix Tab*) 40 mg PO DAILY [facility] Last Admin: 11/22/19 07:52 Dose: 40 mg Prednisone (Deltasone 5 Mg Tab) 5 mg PO DAILY [facility] Last Admin: 11/22/19 07:52 Dose: 5 mg Tramadol HCl (Ultram*) 50 mg PO Q6H PRN PRN Reason: PAIN - MODERATE Last Admin: 11/21/19 19:59 Dose: 50 mg Vital Signs - 8 hr 11/22/19 11/22/19 11/22/19 03:46 04:44 07:00 Temperature 97.1 F Pulse Rate 80 Respiratory 18 16 18 Rate Blood Pressure 128/51 (mmHg) O2 Sat by Pulse 97 Oximetry 11/22/19 07:43 Temperature 98.2 F Pulse Rate 96 Respiratory 16 Rate Blood Pressure 147/58 (mmHg) O2 Sat by Pulse 99 Oximetry Oxygen Devices in Use Now: None Appearance: Pleasant elderly lady, very [place] even with hearing aids on, lying in bed in NAD Eyes: No Scleral Icterus Ears/Nose/Mouth/Throat: Mucous Membranes Moist Neck: Trachea Midline Respiratory: Symmetrical Chest Expansion and Respiratory Effort, Clear to Auscultation Cardiovascular: - - Normal S1 and S2, irregular Abdominal: NL Sounds; No Tenderness; No Distention Extremities: - - LLE externaly rotated and shortened, good pulses and capilary refill, sensation intact Neurological: Alert and Oriented x 3, NL Muscle Strength and Tone Result Diagrams: 11/22/19 04:21 11/22/19 04:21 Assess/Plan/Problems-Billing Assessment: Mrs Jj is an 84yo F with PMH of HTN, HLD, PMR, frequent PVCs and APCs, reported Afib, diverticulitis, who presented to ED with c/o left hip pain after sustaining a fall, found to have left femur neck fracture. - Patient Problems (1) Femur fracture, left Comment: - Ortho input appreciated - plan for surgical repair - Cardiology input appreciated - optimized to proceed with surgery. (2) Hypokalemia Comment: - Resolved. (3) Arrhythmia Comment: - Cardiology input appreciated - Flecainide was held for now, to consider starting Amiodarone after surgery. (4) Polymyalgia rheumatica Comment: - Will increase prednisone to 10mg QAM and 5mg QPM during perioperative period stress. (5) HTN (hypertension) Comment: - Controlled. - Continue Atenolol with holding parameters. (6) DVT prophylaxis Comment: - SQ heparin. Status and Disposition: Inpatient.
[2019-11-22] MEDS ORDERED: ceFAZolin 2 GM PREMIX in ORs 2 GM/50 ML BAG ONE (10:46)
[2019-11-22] MEDS ORDERED: Clindamycin 900 MG/D5W BAG(*) 900 MG/50 ML BAG IVPB ONE (10:52)
[2019-11-22] MEDS ORDERED: fentaNYL* 50 MCG/ML 2 ML VIAL (100 MCG VIAL) ONE (10:59)
[2019-11-22] MEDS ORDERED: Atenolol TAB* 25 MG PO SCH (11:00)
[2019-11-22] MEDS ORDERED: EPHEDrine (Pressors)* 50 MG/ML VIAL ONE (11:01)
[2019-11-22] MEDS ORDERED: Midazolam* 1 MG/ML 2 ML VIAL (2 MG) ONE (11:19)
[2019-11-22] MEDS ORDERED: Propofol* 10 MG/ML 20 ML BTL ONE (11:26)
[2019-11-22] MEDS ORDERED: Naloxone* 0.4 MG/ML 1 ML VIAL IV PRN (11:47)
[2019-11-22] MEDS ORDERED: Ondansetron INJ* 2 MG/ML VIAL ONE (12:29)
[2019-11-22] MEDS ORDERED: Phenylephrine 40 MCG/ML SYRINGE ONE (12:29)
[2019-11-22] MEDS ORDERED: fentaNYL* 50 MCG/ML 2 ML VIAL (100 MCG VIAL) IV PRN (12:59)
[2019-11-22] MEDS: Heparin VIAL(*) 5000 UNITS/ML VIAL (FIVE THOUSAND) SUBCUT SCH ×2 (14:45→21:51)
[2019-11-22] MEDS: Atenolol TAB* 25 MG PO SCH (14:45)
[2019-11-22] MEDS: Clindamycin 600 MG/D5W BAG(*) 600 MG/50 ML BAG IV SCH (19:31)
--- NOTE | 2019-11-22 20:35 | OP ---
DATE OF OPERATION: 11/22/19 - ROOM #334 DATE OF : 31 ATTENDING SURGEON: Tyron Torre MD. VICE PRESIDENT UNDERWRITING: JOSE Lawler. PRE-OP DIAGNOSIS: Left femoral neck fracture. POST-OP DIAGNOSIS: Left femoral neck fracture. OPERATIVE PROCEDURE: Left hemiarthroplasty of the left hip utilizing [place] components, a 28 mm outside diameter, -4 mm offset femoral head. A #5 Accolade femoral stem with neck length 35 mm and a 47 mm outside diameter bipolar head, 28 mm internal diameter. DESCRIPTION OF PROCEDURE: The patient was taken to the operating room where lateral positioning was used. We used the standard modified posterior more approach to the hip. We divided along the fascia nanci below the trochanter and then split the fibers of the gluteus deanna bluntly. Hip retractor was placed under the medius, so that we could identify the piriformis tendon, which was tagged with a #1 Vicryl suture. This was retracted posteriorly, thus clearing the posterior acetabular area from the sciatic nerve. We placed a T-shaped capsulotomy around the base of the femoral neck and then along the longitudinal posterior head to the capsule. By rotating the head over the leg internally, we were able to visualize the posterior portion of the head, which was removed with the corkscrew. We sized the acetabulum to 47 mm. A neck cut was then made a fingerbreadth above the lesser trochanter. We reamed and rasped up to a 5-mm rasp and used a 5-mm press-fit stem. This was placed after the trial, which consisted of a 5-mm rasp, -4 neck length and 47- mm cup. This was a good fit, stable in all planes. We then placed the permanent 5-mm stem, -4 head and the 47-mm cup reducing it smoothly into the acetabulum. We repaired the capsule posteriorly with #1 Vicryl sutures, repaired the piriformis of posterior trochanter with through-bone sutures and then irrigated thoroughly. The fascia nanci was closed with an interrupted #1 Vicryl sutures. We used the running stitch for the gluteus deanna portion. The deep subcu was closed with 0 Vicryl sutures, 2-0 Vicryl subcu and davie for the skin. The blood loss was approximately 200 cc. [id number]/[facility] #: [id number] KAYLEIGH
[2019-11-22] MEDS: clonazePAM TAB(*) 1 MG PO SCH (21:06)
[2019-11-22] MEDS: traMADol TAB* 50 MG PO PRN (21:06)
[2019-11-23] MEDS: Clindamycin 600 MG/D5W BAG(*) 600 MG/50 ML BAG IV SCH ×2 (03:53→11:42)
[2019-11-23] MEDS: Heparin VIAL(*) 5000 UNITS/ML VIAL (FIVE THOUSAND) SUBCUT SCH ×3 (05:51→21:03)
[2019-11-23 06:04] LABS: ABS Eosinophils 0.1 10^3/ul (0-0.6); ABS Lymphocytes 0.5 10^3/ul (1.0-4.8); Eosinophil % 0.6 %; Hematocrit 36 % (35-47); Hemoglobin 12.3 g/dL (12.0-16.0); Lymphocyte % 6.4 %; Mean Corpuscular HGB Conc 34 g/dL (31-36); Mean Corpuscular Hemoglobin 33 pg (27-31); Mean Corpuscular Volume 95 fL (80-97); Mean Platelet Volume 8.6 fL (7.4-10.4); Platelet Count 148 10^3/uL (150-450); Red Blood Count 3.77 10^6 /uL (3.70-4.87); Red Cell Distribution Width 14 % (10-15); White Blood Count 8.6 10^3/uL (3.5-10.8)
[2019-11-23 06:25] LABS: Calcium 7.9 mg/dL (8.6-10.3); EGFR African American 88.7 (>60); EGFR Non-African American 73.3 (>60); Potassium 4.7 mmol/L (3.5-5.0)
[2019-11-23] MEDS: traMADol TAB* 50 MG PO PRN ×3 (07:05→21:01)
[2019-11-23] MEDS: Pantoprazole TAB * 40 MG TAB PO SCH (07:05)
[2019-11-23] MEDS: Acetaminophen TAB* 325 MG PO SCH ×3 (07:54→21:01)
[2019-11-23] MEDS: Morphine INJ* 2 MG/ML 1 ML SYRINGE (TWO MG - NEW SYRINGE VERSION) IV PRN (07:54)
[2019-11-23] MEDS: NS 0.9% 1000 ML** 1,000 ML IV SCH (08:05)
--- NOTE | 2019-11-23 10:05 | PN ---
Progress Note - Progress Note Date of Service: 11/23/19 SOAP: Subjective: [Pt was seen this morning lying in bed. States that she is doing okay. She does have pain in the hip. She states that she has been very hot in the room and admits to sweating this morning. She denies any fevers or chills. Denies any chest pain, SOB, nausea or vomiting. ] Objective: [General: pt is alert and oriented x3. NAD MSK: LLE: Dressing is c/d/i. +df/pf, sensation intact to light touch. calf is soft and non tender. 2+ DP pulse Vital Signs Temp 98.2 F 11/23/19 07:38 Pulse 61 11/23/19 07:38 Resp 20 11/23/19 07:54 BP 116/53 11/23/19 07:38 Pulse Ox 99 11/23/19 07:38 Intake & Output 11/22/19 11/23/19 11/23/19 18:59 06:59 18:59 Intake Total 102 981 5891 Output Total 200 900 Balance -80 -660 1760 Intake: IV Fluids 1172 NS (0.9%) 1172 IVPB 108 Clindamycin 108 Oral 120 240 480 Output: Ybarra 200 900 Other: Date of Last Bowel 11/22/19 Movement Estimated Stool Amount Small ] Assessment: [Left hip hemiarthroplasty ] Plan: [PT Continue with current pain medication Continue with heparin Hospitalists managing medical conditions Dressing change tomorrow. ]
[2019-11-23] MEDS ORDERED: Magnesium Hydroxide LIQ* 30 ML UDC PO PRN (10:09)
--- NOTE | 2019-11-23 10:13 | PN ---
Subjective Date of Service: 11/23/19 Interval History: HOSPITALIST PROGRESS NOTE Patient seen and examined at bedside. Care reviewed and d/w Narda Burrows RN. Her major complaint is severe pain. Denies CP, palpitations, dyspnea, N/V. Family History: Unchanged from Admission Social History: Unchanged from Admission Past Medical History: Unchanged from Admission Objective Active Medications: Acetaminophen (Tylenol Tab*) 975 mg PO TID [facility] Last Admin: 11/23/19 07:54 Dose: 975 mg Atenolol (Tenormin Tab*) 25 mg PO DAILY [facility] Last Admin: 11/22/19 14:45 Dose: 25 mg Clonazepam (Klonopin Tab(*)) 1 mg PO BEDTIME [facility] Last Admin: 11/22/19 21:06 Dose: 1 mg Clonazepam (Klonopin Tab(*)) 1 mg PO DAILY PRN PRN Reason: ANXIETY Heparin Sodium (Porcine) (Heparin Vial(*)) 5,000 units SUBCUT Q8H [facility] Last Admin: 11/23/19 05:51 Dose: 5,000 units Sodium Chloride (Ns 0.9% 1000 Ml) 1,000 mls @ 75 mls/hr IV PER RATE [facility] Last Admin: 11/23/19 08:05 Dose: 75 mls/hr Clindamycin HCl/Dextrose (Cleocin 600 Mg/50 Ml(*)) 600 mg in 50 mls @ 100 mls/ hr IV Q8H [facility] Stop: 11/23/19 11:59 Last Admin: 11/23/19 03:53 Dose: 100 mls/hr Morphine Sulfate (Morphine Inj (Syringe))*) 4 mg IV Q4H PRN PRN Reason: PAIN - MILD Last Admin: 11/23/19 07:54 Dose: 4 mg Ondansetron HCl (Zofran Inj*) 4 mg IV Q4H PRN PRN Reason: NAUSEA/VOMITING Pantoprazole Sodium (Protonix Tab*) 40 mg PO DAILY [facility] Last Admin: 11/23/19 07:05 Dose: 40 mg Prednisone (Deltasone 5 Mg Tab) 10 mg PO DAILY [facility] Last Admin: 11/23/19 08:02 Dose: 10 mg Prednisone (Deltasone 5 Mg Tab) 5 mg PO QPM [facility] Last Admin: 11/22/19 17:58 Dose: 5 mg Tramadol HCl (Ultram*) 50 mg PO Q6H PRN PRN Reason: PAIN - MODERATE Last Admin: 11/23/19 07:05 Dose: 50 mg Vital Signs - 8 hr 11/23/19 11/23/19 11/23/19 03:17 07:05 07:38 Temperature 98 F 98.2 F Pulse Rate 99 61 Respiratory 16 20 17 Rate Blood Pressure 124/60 116/53 (mmHg) O2 Sat by Pulse 95 99 Oximetry 11/23/19 07:54 Temperature Pulse Rate Respiratory 20 Rate Blood Pressure (mmHg) O2 Sat by Pulse Oximetry Oxygen Devices in Use Now: None Appearance: Elderly lady lying in bed, appears uncomfortable, but not in distress Eyes: No Scleral Icterus Ears/Nose/Mouth/Throat: Mucous Membranes Moist Neck: Trachea Midline Respiratory: Symmetrical Chest Expansion and Respiratory Effort, Clear to Auscultation Cardiovascular: RRR - Normal S1 and S2 Extremities: - - Left thigh CDI, soft, no calf tenderness, good capilary refill and sensation intact Neurological: Alert and Oriented x 3, NL Muscle Strength and Tone Result Diagrams: 11/23/19 05:42 11/23/19 05:42 Assess/Plan/Problems-Billing Assessment: Mrs Jj is an 84yo F with PMH of HTN, HLD, PMR, frequent PVCs and APCs, reported Afib, diverticulitis, who presented to ED with c/o left hip pain after sustaining a fall, found to have left femur neck fracture. - Patient Problems (1) Femur fracture, left Comment: - S/p left hemiarthroplasty 11/22/2019 with EBL 200ml - Post op management as per Ortho (2) Hypokalemia Comment: - Resolved. (3) Arrhythmia Comment: - Cardiology input appreciated - Flecainide was held for now, to consider starting Amiodarone after surgery. - Tele continues to show frequent APCs/VPCs, but asymptomatic (4) Polymyalgia rheumatica Comment: - Will increase prednisone to 10mg QAM and 5mg QPM during perioperative period stress. - BP remains stable. (5) HTN (hypertension) Comment: - Controlled. - Continue Atenolol with holding parameters. (6) DVT prophylaxis Comment: - SQ heparin and SCDs for now - will await Ortho recommendations. (7) DNR (do not resuscitate) Status and Disposition: Inpatient. Will likely need STR on discharge.
[2019-11-23] MEDS ORDERED: Morphine INJ* 4 MG/ML 1 ML SYRINGE (NEW SYRINGE VERSION) IV PRN (11:00)
[2019-11-23] MEDS ORDERED: NS 0.9% 500 ML* 500 ML IV ONE (15:17)
[2019-11-23] MEDS: Atenolol TAB* 25 MG PO SCH (16:04)
[2019-11-23] MEDS: Docusate CAP* 100 MG PO SCH (21:01)
[2019-11-23] MEDS: clonazePAM TAB(*) 1 MG PO SCH (21:02)
[2019-11-23] MEDS: Magnesium Hydroxide LIQ* 30 ML UDC PO SCH (21:02)
[2019-11-24] MEDS: NS 0.9% 1000 ML** 1,000 ML IV SCH (00:46)
[2019-11-24 05:28] LABS: Hematocrit 34 % (35-47); Hemoglobin 11.9 g/dL (12.0-16.0)
[2019-11-24] MEDS: traMADol TAB* 50 MG PO PRN ×2 (05:28→12:26)
[2019-11-24] MEDS: Heparin VIAL(*) 5000 UNITS/ML VIAL (FIVE THOUSAND) SUBCUT SCH (05:30)
[2019-11-24 05:51] LABS: BUN/Creatinine Ratio 20.8 (8-20); Calcium 8.3 mg/dL (8.6-10.3); EGFR Non-African American 71.1 (>60); Potassium 4.7 mmol/L (3.5-5.0)
--- NOTE | 2019-11-24 09:46 | PN ---
Subjective Date of Service: 11/24/19 Interval History: HOSPITALIST PROGRESS NOTE Patient seen and examined at bedside. Care reviewed and d/w Riccardo Riojas RN. She c/o severe left hip pain, worse with movement. States the pain medication is decreasing her appetite. Family History: Unchanged from Admission Social History: Unchanged from Admission Past Medical History: Unchanged from Admission Objective Active Medications: Acetaminophen (Tylenol Tab*) 975 mg PO TID [facility] Last Admin: 11/23/19 21:01 Dose: 975 mg Atenolol (Tenormin Tab*) 25 mg PO DAILY [facility] Last Admin: 11/23/19 16:04 Dose: Not Given Bisacodyl (Dulcolax Supp*) 10 mg GA DAILY PRN PRN Reason: CONSTIPATION Clonazepam (Klonopin Tab(*)) 1 mg PO BEDTIME [facility] Last Admin: 11/23/19 21:02 Dose: 1 mg Clonazepam (Klonopin Tab(*)) 1 mg PO DAILY PRN PRN Reason: ANXIETY Docusate Sodium (Colace Cap*) 100 mg PO BID [facility] Last Admin: 11/23/19 21:01 Dose: 100 mg Heparin Sodium (Porcine) (Heparin Vial(*)) 5,000 units SUBCUT Q8H [facility] Last Admin: 11/24/19 05:30 Dose: 5,000 units Lactulose (Lactulose*) 30 ml PO BID PRN PRN Reason: CONSTIPATION Magnesium Hydroxide (Milk Of Magnesia Liq*) 30 ml PO BID [facility] Last Admin: 11/23/19 21:02 Dose: 30 ml Magnesium Hydroxide (Milk Of Magnesia Liq*) 30 ml PO Q6H PRN PRN Reason: CONSTIPATION Morphine Sulfate (Morphine Inj (Syringe)*) 4 mg IV Q4H PRN PRN Reason: PAIN - MILD Ondansetron HCl (Zofran Inj*) 4 mg IV Q4H PRN PRN Reason: NAUSEA/VOMITING Pantoprazole Sodium (Protonix Tab*) 40 mg PO DAILY [facility] Last Admin: 11/23/19 07:05 Dose: 40 mg Prednisone (Deltasone 5 Mg Tab) 5 mg PO QPM [facility] Last Admin: 11/23/19 18:37 Dose: 5 mg Prednisone (Deltasone 5 Mg Tab) 7.5 mg PO DAILY [facility] Tramadol HCl (Ultram*) 50 mg PO Q6H PRN PRN Reason: PAIN - MODERATE Last Admin: 11/24/19 05:28 Dose: 50 mg Vital Signs - 8 hr 11/24/19 11/24/19 11/24/19 03:33 05:28 08:59 Temperature 97.5 F 98.2 F Pulse Rate 87 84 Respiratory 16 17 17 Rate Blood Pressure 125/50 146/53 (mmHg) O2 Sat by Pulse 97 93 Oximetry Oxygen Devices in Use Now: None Appearance: Elderly lady sitting up in a recliner in NAD Eyes: No Scleral Icterus Ears/Nose/Mouth/Throat: Mucous Membranes Moist Neck: Trachea Midline Respiratory: Symmetrical Chest Expansion and Respiratory Effort, Clear to Auscultation - diminished in bases Cardiovascular: - - Normal S1 and S2, irregular Extremities: - - Left thigh CDI, thigh is supple, no calf tenderness, good DP pulse and capilary refill Neurological: NL Muscle Strength and Tone, - - AAOx2 (self and place) Result Diagrams: 11/24/19 05:23 11/24/19 05:23 Assess/Plan/Problems-Billing Assessment: Mrs Jj is an 84yo F with PMH of HTN, HLD, PMR, frequent PVCs and APCs, reported Afib, diverticulitis, who presented to ED with c/o left hip pain after sustaining a fall, found to have left femur neck fracture. - Patient Problems (1) Femur fracture, left Comment: - S/p left hemiarthroplasty 11/22/2019 with EBL 200ml - Post op management as per Ortho (2) Hypokalemia Comment: - Resolved. (3) Arrhythmia Comment: - D/w Cardiology (Dr Marti) - recommend discontinuation of Flecainide. He'll consider starting Amiodarone as outpatient. - D/c Telemetry. (4) Polymyalgia rheumatica Comment: - Start to taper prednisone to 7.5mg QAM and 5mg QPM during perioperative period stress. - BP remains stable. (5) HTN (hypertension) Comment: - Controlled. - Continue Atenolol with holding parameters. (6) DVT prophylaxis Comment: - Change SQ heparin to Lovenox/SCDs (7) DNR (do not resuscitate) Status and Disposition: Inpatient. Will need STR on discharge.
[2019-11-24] MEDS: Docusate CAP* 100 MG PO SCH ×2 (10:01→20:54)
[2019-11-24] MEDS: Acetaminophen TAB* 325 MG PO SCH ×3 (10:01→20:53)
[2019-11-24] MEDS: Pantoprazole TAB * 40 MG TAB PO SCH (10:01)
[2019-11-24] MEDS: Atenolol TAB* 25 MG PO SCH (10:02)
[2019-11-24] MEDS: Magnesium Hydroxide LIQ* 30 ML UDC PO SCH ×2 (10:05→20:54)
--- NOTE | 2019-11-24 11:07 | PN ---
Progress Note - Progress Note Date of Service: 11/24/19 SOAP: Subjective: Pt was seen this morning lying in bed. States that she is doing okay. She does have pain in the hip. She denies any fevers or chills. Denies any chest pain, SOB, nausea or vomiting. ] Objective: [General: pt is alert and oriented x3. NAD MSK: LLE: Dressing is c/d/i. Dressing changed today. Incision is c/d/i. +df/pf, sensation intact to light touch. calf is soft and non tender. 2+ DP pulse MSK, RLE: There is a mid calf skin tear that has a dressing over it. The skin tear is superficial. wrapped in guaze wrap. Will order telfa and gauze wrap daily by nursing. Vital Signs Temp 98.2 F 11/24/19 08:59 Pulse 84 11/24/19 08:59 Resp 18 11/24/19 10:04 BP 146/53 11/24/19 08:59 Pulse Ox 93 11/24/19 08:59 Intake & Output 11/23/19 11/24/19 11/24/19 18:59 06:59 18:59 Intake Total 2900 980 210 Output Total 200 550 400 Balance 2700 430 -190 Intake: IV Fluids 1172 980 NS (0.9%) 1172 980 IVPB 608 Clindamycin 108 NS (0.9%) 500 Oral 1120 210 Output: Urine 200 550 400 Other: Estimated Void Medium Assessment: [Left hip hemiarthroplasty Right calf skin tear ] Plan: [PT Continue with current pain medication Continue with heparin Hospitalists managing medical conditions Dressing change today. ]
[2019-11-24] MEDS ORDERED: Enoxaparin(*) 40 MG/0.4 ML SYR SUBCUT SCH ×2 (13:00→15:00)
[2019-11-24] MEDS: clonazePAM TAB(*) 1 MG PO SCH (20:51)
[2019-11-25] MEDS: traMADol TAB* 50 MG PO PRN (06:09)
[2019-11-25] MEDS: Magnesium Hydroxide LIQ* 30 ML UDC PO SCH (08:23)
[2019-11-25] MEDS: Docusate CAP* 100 MG PO SCH (08:24)
[2019-11-25 08:37] VITALS: BP 135/55
[2019-11-25] MEDS: Pantoprazole TAB * 40 MG TAB PO SCH (08:52)
[2019-11-25] MEDS: Atenolol TAB* 25 MG PO SCH (08:53)
[2019-11-25] MEDS: Acetaminophen TAB* 325 MG PO SCH (08:54)
--- NOTE | 2019-11-25 09:34 | PN ---
Progress Note - Progress Note Date of Service: 11/25/19 SOAP: Subjective: POD #3 Left hip hemiarthroplasty. States that she "feels terrible and can't walk ". Per nursing and PT, pt doing well with transfers and standing with walker. Denies CP/SOB, f/c, n/v. Objective: Vital Signs: Temp Pulse Resp BP Pulse Ox 97.1 F 79 16 135/55 94 11/25/19 08:37 11/25/19 08:37 11/25/19 08:53 11/25/19 08:37 11/25/19 08:37 Gen: A&Ox3, NAD at rest sitting in chair Left hip: Dressing C/D/I, thigh soft, minimal ttp. +f/e at ankle and MTPs. N/V intact. Assessment: POD #3 Left hip hemiarthroplasty Plan: Pt to be d/c'd back to [facility] today Staple removal at 14 days post op Lovenox 30 mg subcutaneous every 24 hours for DVT ppx x 30 days F/u with Dr. Torre for x-rays in 3-4 weeks if possible
--- NOTE | 2019-11-25 10:18 | DS ---
CC: Dr. Hernandez; Dr. Marti; Dr. Louis; Dr. Tyron Torre * DISCHARGE SUMMARY: DATE OF ADMISSION: 11/21/19 DATE OF DISCHARGE: 11/25/19 PRIMARY CARE PROVIDER: Dr. Hernandez. RETAIL ROUTE SUPERVISOR: Dr. Marti. CONSULTING RETAIL ROUTE SUPERVISOR: Dr. Louis. ORTHOPEDIST: Dr. Tyron Torre. DISCHARGE DIAGNOSIS: Left femoral neck fracture, status post left hemiarthroplasty. SECONDARY DIAGNOSES: 1. Hypertension. 2. Hyperlipidemia. 3. Polymyalgia rheumatica. 4. Paroxysmal atrial fibrillation. 5. Frequent premature ventricular contractions and atrial premature complexes. MEDICATION LIST: 1. Atenolol 25 mg p.o. daily. 2. Clonazepam 1 to 2 mg p.o. daily. 3. Melatonin/pyridoxine 1 tablet p.o. at bedtime as needed for insomnia. 4. Omeprazole 20 mg p.o. daily. 5. Dyazide 37.5/25 mg 1 capsule p.o. daily. 6. Zolpidem 10 mg p.o. at bedtime. New Medications: 1. Acetaminophen 975 mg p.o. t.i.d. 2. Colace 100 mg p.o. b.i.d. 3. Lovenox 40 mg subcutaneously daily at 3 p.m. 4. Lactulose 30 mL p.o. b.i.d. p.r.n. constipation. 5. Milk of magnesia 3 mL p.o. q.6 hours p.r.n. constipation. 6. Tramadol 50 mg p.o. q.6 hours p.r.n. for pain. Medication Change: 1. Prednisone was increased to 5 mg p.o. daily. 2. Losartan was discontinued due to hypotension. HOSPITAL COURSE: Ms. Jj is an 84-year-old female with a past medical history stated above that presented to the emergency room after sustaining a fall at home. For more details about her presentation, I refer you to her history and physical. In the emergency room, the patient had an x-ray that revealed a fracture of the neck of the left femur with overriding of the fracture fragments. She was admitted to the hospitalist service and seen in consultation by Cardiology in preparation for surgery. Dr. Louis felt that the patient had a negative workup for structural heart disease or ischemia and he felt she could proceed with surgery at a relatively low risk after her potassium was repleted. He also recommended consideration of switching from flecainide to amiodarone. He held flecainide while in the hospital and I discussed this with her rhit , Dr. Marti, who recommended discharging her on no antiarrhythmic at this time and he will see her as outpatient and then decide about amiodarone addition. The same applies to her anticoagulation, but considering she is at a high risk for fall, anticoagulation may be more detrimental than beneficial in this patient. She was seen in consultation by orthopedist (Dr. Torre) and she went to the OR on 11/22/19 where she underwent a left hemiarthroplasty of the left hip with an estimated blood loss of 200 mL. Her major issue in the postop period was pain control, but that seemed to be improved at this time. She is making progress with physical therapy and she was felt to be medically stable to be discharged for rehab today. As the patient is chronically on steroids, she received stress dose steroids while in the hospital and this is now being tapered down. She is being discharged on 5 mg daily, but I believe by next week, she should be able to return to her usual dose of 5 mg alternating with 3 mg daily. Due to hypotension, her losartan was discontinued while in the hospital. I am continuing her atenolol and resuming her diuretics. For her blood pressure, will need to be monitoring as outpatient. The patient also had mild hyponatremia and the sodium on the day of discharge is 130. The patient should have a repeat BMP on 11/27/19 to follow the trend. The patient will also need to follow up with Dr. Torre in 10 to 14 days to also have her davie removed. PHYSICAL EXAMINATION: Vital Signs: Temperature 98, heart rate 78, respiratory rate is 18, oxygen saturation 95% on room air, blood pressure is 129/50. General: The patient is a pleasant elderly lady, lying in the bed in no acute distress. CVS: Normal S1 and S2. Irregular. Chest: Breath sounds bilaterally with no added sounds. Abdomen: Soft. Bowel sounds present. Extremities: The patient has a clean dressing to the left thigh. No calf tenderness. Neuro: She is alert x2 to self and place. Able to move all 4 extremities. The patient has good capillary refill. Good dorsalis pedis pulse and sensation is intact. DIET: Regular diet. ACTIVITY: As tolerated. DISPOSITION: To [facility]. STATUS IN THE HOSPITAL: Inpatient. CONDITION AT THE TIME OF DISCHARGE: Fair. Please keep in mind this is a summarized version of this patient's hospital stay. If you need any information, please feel free to call me at [phone] or please obtain the full medical records. Approximately 50 minutes was spent to complete this discharge. [id number]/[facility] #: [id number] KAYLEIGH
== END 2019-11-25 11:10 | DRG 470 ==
LOC: ED 06:46 → SSU 09:46
PROVIDERS: ADMIT Internal Medicine; ATTEND Internal Medicine
PROC: 0SRS0JA Replacement of Left Hip Joint, Femoral Surface with Synthetic Substitute, Uncemented, Open Approach (ICD-10-PCS; principal; 2019-11-22 12:00)
DX: S72.002A Fracture of unspecified part of neck of left femur, initial encounter for closed fracture (principal); I47.0 Re-entry ventricular arrhythmia; I10 Essential (primary) hypertension; I25.10 Atherosclerotic heart disease of native coronary artery without angina pectoris; E78.5 Hyperlipidemia, unspecified; M35.3 Polymyalgia rheumatica; I48.0 Paroxysmal atrial fibrillation; E87.6 Hypokalemia; Z66 Do not resuscitate; R00.8 Other abnormalities of heart beat; I44.7 Left bundle-branch block, unspecified; I49.3 Ventricular premature depolarization; F41.9 Anxiety disorder, unspecified; D72.829 Elevated white blood cell count, unspecified; I49.1 Atrial premature depolarization; G47.33 Obstructive sleep apnea (adult) (pediatric); R32 Unspecified urinary incontinence; E78.00 Pure hypercholesterolemia, unspecified; W18.30XA Fall on same level, unspecified, initial encounter; Y92.009 Unspecified place in unspecified non-institutional (private) residence as the place of occurrence of the external cause; Z88.0 Allergy status to penicillin; Z85.828 Personal history of other malignant neoplasm of skin; Z79.52 Long term (current) use of systemic steroids; Z79.899 Other long term (current) drug therapy; Z91.011 Allergy to milk products; Z82.3 Family history of stroke; Z80.49 Family history of malignant neoplasm of other genital organs
CPT/HCPCS: 36415; 71045; 72170; 80048; 80053; 81003; 81015; 83735; 84443; 85014; 85018; 85025; 88305; 88311; 93005; 96374; 96375; 99285; A9270-GY; C1776; J0690; J1644; J1650; J2250; J2270; J2405; J2704; J3010; J3475; J3480; J7512

== ENCOUNTER 2019-12-05 07:36 | Inpatient (IN) | payer MEDICARE, OTHER ==
[2019-12-05] MEDS ORDERED: Ondansetron 4 mg VIAL 2 MG/ML 2 ml VIAL IV ONE (07:52)
[2019-12-05] MEDS ORDERED: Morphine 4 MG/ML VIAL (1 ml) IV ONE ×2 (07:52→09:51)
[2019-12-05 08:38] LABS: Hematocrit 36 % (35-47); Hemoglobin 12.7 g/dL (12.0-16.0); Mean Corpuscular HGB Conc 35 g/dL (31-36); Mean Corpuscular Hemoglobin 33 pg (27-31); Mean Corpuscular Volume 93 fL (80-97); Platelet Count 528 10^3/uL (150-450); Red Blood Count 3.88 10^6 /uL (3.70-4.87); Red Cell Distribution Width 14 % (10-15); White Blood Count 15.3 10^3/uL (3.5-10.8)
[2019-12-05 08:53] LABS: Activated Partial Thrombo Time 32.4 seconds (26.0-38.0); INR 1.07 (0.82-1.09)
[2019-12-05 08:54] LABS: Albumin 3.3 g/dL (3.2-5.2); Albumin/Globulin Ratio 1.4 (1-3); BUN/Creatinine Ratio 22.2 (8-20); Calcium 8.8 mg/dL (8.6-10.3); EGFR African American 92.9 (>60); EGFR Non-African American 76.8 (>60); Globulin 2.4 g/dL (2-4); Potassium 3.1 mmol/L (3.5-5.0); Total Bilirubin 0.4 mg/dL (0.2-1.0); Total Protein 5.7 g/dL (6.4-8.9)
[2019-12-05] MEDS ORDERED: NS 0.9% 1000 ml BAG 1,000 ML IV ONE (08:58)
[2019-12-05] MEDS ORDERED: KCL 20 MEQ/100 ML IVPREMIX 20 MEQ/100 ML BAG IV ONE (08:59)
[2019-12-05 09:26] LABS: ABS Basophils 0.1 10^3/ul (0-0.2); ABS Eosinophils 0.1 10^3/ul (0-0.6); ABS Lymphocytes 1.7 10^3/ul (1.0-4.8); ABS Monocytes 1.1 10^3/ul (0-0.8); Eosinophil % 0.6 %; Lymphocyte % 11.4 %
[2019-12-05] MEDS ORDERED: Potassium Chlor 20 meq TAB.ER PO ONE (10:32)
[2019-12-05] MEDS ORDERED: Lactulose 30 ml UDC PO PRN (10:37)
[2019-12-05] MEDS: NS 0.9% 1000 ml BAG 1,000 ML IV SCH ×2 (11:32→22:01)
[2019-12-05 12:41] LABS: Urine Appearance Clear; Urine Bilirubin Negative (Negative); Urine Blood 1+ (Negative); Urine Color Yellow; Urine Glucose Negative (Negative); Urine Ketones Negative (Negative); Urine Nitrite Negative (Negative); Urine Protein Negative (Negative); Urine Specific Gravity 1.017 (1.010-1.030); Urine Urobilinogen Negative (Negative)
[2019-12-05 12:57] LABS: Urine Bacteria Absent (Absent); Urine Red Blood Cell 2+(6-10/hpf) (Absent); Urine White Blood Cell Trace(0-5/hpf) (Absent)
[2019-12-05] MEDS: Heparin 5000 UNITS/ML VIAL(*) 1 ml vial SUBCUT SCH (13:11)
[2019-12-05] MEDS: oxyCODONE/Acetamin 5/325 mg TAB PO PRN (19:34)
[2019-12-06] MEDS: Heparin 5000 UNITS/ML VIAL(*) 1 ml vial SUBCUT SCH ×4 (00:41→21:54)
[2019-12-06 06:21] LABS: ABS Basophils 0.1 10^3/ul (0-0.2); ABS Eosinophils 0.1 10^3/ul (0-0.6); ABS Lymphocytes 1.3 10^3/ul (1.0-4.8); ABS Monocytes 1.1 10^3/ul (0-0.8); Eosinophil % 0.7 %; Hematocrit 32 % (35-47); Hemoglobin 11.1 g/dL (12.0-16.0); Lymphocyte % 14.1 %; Mean Corpuscular HGB Conc 35 g/dL (31-36); Mean Corpuscular Hemoglobin 33 pg (27-31); Mean Corpuscular Volume 93 fL (80-97); Mean Platelet Volume 7.1 fL (7.4-10.4); Platelet Count 442 10^3/uL (150-450); Red Blood Count 3.39 10^6 /uL (3.70-4.87); Red Cell Distribution Width 15 % (10-15); White Blood Count 9.2 10^3/uL (3.5-10.8)
[2019-12-06 06:29] LABS: Activated Partial Thrombo Time 36.7 seconds (26.0-38.0); INR 1.11 (0.82-1.09)
[2019-12-06 06:40] LABS: Albumin 2.7 g/dL (3.2-5.2); Albumin/Globulin Ratio 1.3 (1-3); BUN/Creatinine Ratio 22.1 (8-20); Calcium 8.1 mg/dL (8.6-10.3); EGFR African American 99.3 (>60); Globulin 2.1 g/dL (2-4); Potassium 4.7 mmol/L (3.5-5.0); Total Bilirubin 0.5 mg/dL (0.2-1.0); Total Protein 4.8 g/dL (6.4-8.9)
[2019-12-06] MEDS: oxyCODONE/Acetamin 5/325 mg TAB PO PRN ×2 (08:47→21:54)
[2019-12-06] MEDS: NS 0.9% 1000 ml BAG 1,000 ML IV SCH ×2 (08:54→18:54)
[2019-12-06] MEDS: Dextran 70/Hypromellose Tears Eye Drops 15 ml BTL (for Artificials Tears) OPHTHALMIC PRN ×2 (11:33→19:43)
[2019-12-06] MEDS: clonazePAM 0.5 mg TAB (*) PO PRN (14:36)
[2019-12-06] MEDS ORDERED: Ondansetron 4 mg VIAL 2 MG/ML 2 ml VIAL ONE (15:41)
[2019-12-06] MEDS: Ondansetron 4 mg VIAL 2 MG/ML 2 ml VIAL IV PRN (15:45)
[2019-12-07] MEDS: clonazePAM 0.5 mg TAB (*) PO PRN ×2 (01:25→21:06)
[2019-12-07] MEDS: NS 0.9% 1000 ml BAG 1,000 ML IV SCH (04:46)
[2019-12-07 06:45] LABS: INR 1.1 (0.82-1.09)
[2019-12-07] MEDS ORDERED: Buffered Lidocaine 1% SYRIN 1 ml INTRADERM ONE (07:32)
[2019-12-07] MEDS ORDERED: Clindamycin 900 MG/D5W BAG(*) 900 MG/50 ML BAG IVPB ONE (07:38)
[2019-12-07] MEDS ORDERED: Lidocaine 2% PF 5 ML VIAL ONE (07:42)
[2019-12-07] MEDS ORDERED: fentaNYL 100 mcg/2 ml 50 MCG/ML VIAL ONE ×4 (07:42→14:07)
[2019-12-07] MEDS ORDERED: Dexamethasone IV 4 MG/ML VIAL 1 ml VIAL ONE (07:42)
[2019-12-07] MEDS ORDERED: Ketamine HCL 50 mg/ml 10 ml VIAL (500 MG) ONE (07:42)
[2019-12-07] MEDS ORDERED: Ondansetron 4 mg VIAL 2 MG/ML 2 ml VIAL ONE (07:42)
[2019-12-07] MEDS ORDERED: Propofol 10 MG/ML 20 ML BTL ONE (07:42)
[2019-12-07] MEDS ORDERED: Midazolam 5 mg/5 ml VIAL 1 mg/ml 5 ml VIAL (5 mg) ONE (07:42)
[2019-12-07] MEDS ORDERED: Succinylcholine 200 mg VIAL 20 mg/ml 10 ml VIAL (200 mg) ONE (07:45)
[2019-12-07] MEDS ORDERED: Cisatracurium 2 MG/ML MDV 5 ML ONE (08:22)
[2019-12-07] MEDS ORDERED: ROPIVACAINE 5 MG/ML 30 ML BTL (0.5%) ONE (08:34)
[2019-12-07] MEDS ORDERED: Phenylephrine 40 mcg/mL 10mL (400mcg) SYRINGE ONE (08:46)
[2019-12-07] MEDS ORDERED: EPHEDrine (Pressors) 50 MG/ML VIAL ONE (09:25)
[2019-12-07] MEDS ORDERED: Ondansetron 4 mg VIAL 2 MG/ML 2 ml VIAL IV PRN (10:35)
[2019-12-07] MEDS ORDERED: Naloxone 0.4 mg VIAL 0.4 mg/ml 1 ml VIAL IV PRN (10:35)
[2019-12-07] MEDS ORDERED: HYDROmorphone 1 MG/1 ML SYRINGE IV PRN (10:35)
[2019-12-07] MEDS ORDERED: HYDROmorphone 1 MG/1 ML SYRINGE ONE (11:14)
[2019-12-07] MEDS ORDERED: Magnesium Hydroxide LIQ 30 ML UDC PO PRN (13:02)
[2019-12-07] MEDS ORDERED: diPHENhydraMINE IV 50 MG/ML 1 ml VIAL (BENADRYL) IV PRN (13:02)
[2019-12-07] MEDS ORDERED: diPHENhydraMINE 25 mg TAB PO PRN (13:02)
[2019-12-07] MEDS ORDERED: Lactulose 30 ml UDC PO PRN (13:02)
[2019-12-07] MEDS ORDERED: Ondansetron ODT 4 mg TAB 4 MG TAB PO PRN (13:02)
[2019-12-07] MEDS: fentaNYL 100 mcg/2 ml 50 MCG/ML VIAL IV PRN ×4 (14:09→15:10)
[2019-12-07] MEDS: Lactated Ringers 1000 ml BAG 1,000 ML IV SCH (15:47)
[2019-12-07] MEDS: Ondansetron 4 mg VIAL 2 MG/ML 2 ml VIAL IV PRN (16:57)
[2019-12-07] MEDS: Clindamycin 600 MG/D5W BAG(*) 600 MG/50 ML BAG IV SCH (16:57)
[2019-12-07] MEDS: Dextran 70/Hypromellose Tears Eye Drops 15 ml BTL (for Artificials Tears) OPHTHALMIC PRN (17:05)
[2019-12-07] MEDS: oxyCODONE/Acetamin 5/325 mg TAB PO PRN (17:06)
[2019-12-07] MEDS: Magnesium Hydroxide LIQ 30 ML UDC PO SCH ×2 (21:07→21:08)
[2019-12-08] MEDS: oxyCODONE/Acetamin 5/325 mg TAB PO PRN ×2 (00:48→09:00)
[2019-12-08] MEDS: Clindamycin 600 MG/D5W BAG(*) 600 MG/50 ML BAG IV SCH ×2 (00:50→09:06)
[2019-12-08 06:19] LABS: Hematocrit 24 % (35-47); Hemoglobin 8.3 g/dL (12.0-16.0); Mean Platelet Volume 7.7 fL (7.4-10.4); Platelet Count 394 10^3/uL (150-450)
[2019-12-08 06:23] LABS: Hematocrit 24 % (35-47); Hemoglobin 8.2 g/dL (12.0-16.0); Mean Corpuscular HGB Conc 35 g/dL (31-36); Mean Corpuscular Hemoglobin 32 pg (27-31); Mean Corpuscular Volume 94 fL (80-97); Mean Platelet Volume 7.5 fL (7.4-10.4); Platelet Count 377 10^3/uL (150-450); Red Blood Count 2.52 10^6 /uL (3.70-4.87); Red Cell Distribution Width 14 % (10-15); White Blood Count 13.8 10^3/uL (3.5-10.8)
[2019-12-08 06:38] LABS: BUN/Creatinine Ratio 21.9 (8-20); EGFR African American 106.5 (>60); Potassium 4.7 mmol/L (3.5-5.0)
[2019-12-08 07:20] LABS: Magnesium 1.7 mg/dL (1.9-2.7)
[2019-12-08 07:28] LABS: ABS Lymphocytes 1.1 10^3/ul (1.0-4.8); Lymphocyte % 7.6 %
[2019-12-08] MEDS ORDERED: Morphine 2 MG/ML SYRINGE IV PRN (08:35)
[2019-12-08] MEDS: Vitamin THERAPEUTIC TAB PO SCH (09:00)
[2019-12-08] MEDS: Magnesium Hydroxide LIQ 30 ML UDC PO SCH ×2 (09:00→21:33)
[2019-12-08] MEDS ORDERED: Lactated Ringers 500 ml BAG 500 ML IV ONE (11:55)
[2019-12-08] MEDS: Enoxaparin 30 MG/0.3 ML SYR(*) SUBCUT SCH (12:36)
[2019-12-08] MEDS: Dextran 70/Hypromellose Tears Eye Drops 15 ml BTL (for Artificials Tears) OPHTHALMIC PRN ×2 (12:55→21:34)
[2019-12-08] MEDS: Lactated Ringers 1000 ml BAG 1,000 ML IV SCH ×2 (18:10→21:51)
[2019-12-08] MEDS: clonazePAM 0.5 mg TAB (*) PO PRN (21:31)
[2019-12-09 05:57] LABS: Hematocrit 21 % (35-47); Hemoglobin 7.4 g/dL (12.0-16.0); Mean Corpuscular HGB Conc 35 g/dL (31-36); Mean Corpuscular Hemoglobin 32 pg (27-31); Mean Corpuscular Volume 93 fL (80-97); Mean Platelet Volume 7.2 fL (7.4-10.4); Platelet Count 323 10^3/uL (150-450); Red Blood Count 2.29 10^6 /uL (3.70-4.87); Red Cell Distribution Width 14 % (10-15); White Blood Count 11.6 10^3/uL (3.5-10.8)
[2019-12-09 06:01] LABS: ABS Monocytes 1.6 10^3/ul (0-0.8); Eosinophil % 0.1 %; Lymphocyte % 8.9 %
[2019-12-09 06:13] LABS: BUN/Creatinine Ratio 23.6 (8-20); Calcium 7.6 mg/dL (8.6-10.3); EGFR African American 92.9 (>60); EGFR Non-African American 76.8 (>60); Potassium 4.8 mmol/L (3.5-5.0)
[2019-12-09] MEDS: Magnesium Hydroxide LIQ 30 ML UDC PO SCH ×2 (09:17→21:00)
[2019-12-09] MEDS: Vitamin THERAPEUTIC TAB PO SCH (09:23)
[2019-12-09] MEDS: Enoxaparin 30 MG/0.3 ML SYR(*) SUBCUT SCH (12:06)
[2019-12-09] MEDS: Dextran 70/Hypromellose Tears Eye Drops 15 ml BTL (for Artificials Tears) OPHTHALMIC PRN ×2 (12:07→20:50)
[2019-12-09 12:54] LABS: Magnesium 1.9 mg/dL (1.9-2.7)
[2019-12-09] MEDS: clonazePAM 0.5 mg TAB (*) PO PRN (16:15)
[2019-12-09] MEDS: oxyCODONE/Acetamin 5/325 mg TAB PO PRN (22:51)
[2019-12-10 04:54] LABS: ABS Eosinophils 0.1 10^3/ul (0-0.6); ABS Lymphocytes 1.7 10^3/ul (1.0-4.8); ABS Monocytes 1.4 10^3/ul (0-0.8); Eosinophil % 0.9 %; Hematocrit 23 % (35-47); Hemoglobin 8.1 g/dL (12.0-16.0); Lymphocyte % 15.4 %; Mean Corpuscular HGB Conc 35 g/dL (31-36); Mean Corpuscular Hemoglobin 32 pg (27-31); Mean Corpuscular Volume 91 fL (80-97); Mean Platelet Volume 7.8 fL (7.4-10.4); Nucleated Red Blood Cells % 0.1; Platelet Count 290 10^3/uL (150-450); Red Blood Count 2.54 10^6 /uL (3.70-4.87); Red Cell Distribution Width 17 % (10-15); White Blood Count 10.9 10^3/uL (3.5-10.8)
[2019-12-10 05:05] LABS: BUN/Creatinine Ratio 28.6 (8-20); Calcium 7.4 mg/dL (8.6-10.3); EGFR African American 124.2 (>60); EGFR Non-African American 102.6 (>60); Potassium 4.6 mmol/L (3.5-5.0)
[2019-12-10] MEDS: Magnesium Hydroxide LIQ 30 ML UDC PO SCH (08:20)
[2019-12-10] MEDS: Dextran 70/Hypromellose Tears Eye Drops 15 ml BTL (for Artificials Tears) OPHTHALMIC PRN (08:28)
[2019-12-10] MEDS: Vitamin THERAPEUTIC TAB PO SCH (10:18)
[2019-12-10] MEDS: clonazePAM 0.5 mg TAB (*) PO PRN (10:57)
[2019-12-10 11:40] VITALS: BP 136/51
[2019-12-10] MEDS: Enoxaparin 30 MG/0.3 ML SYR(*) SUBCUT SCH (12:52)
== END 2019-12-10 16:20 | DRG 467 ==
LOC: ED 07:36 → SSU 09:45
PROVIDERS: ADMIT Internal Medicine; ATTEND Internal Medicine
PROC: 0SRS0JZ Replacement of Left Hip Joint, Femoral Surface with Synthetic Substitute, Open Approach (ICD-10-PCS; principal; 2019-12-07)
PROC: 0SPS0JZ Removal of Synthetic Substitute from Left Hip Joint, Femoral Surface, Open Approach (ICD-10-PCS; 2019-12-07)
PROC: 0QS904Z Reposition Left Femoral Shaft with Internal Fixation Device, Open Approach (ICD-10-PCS; 2019-12-07)
PROC: 30233N1 Transfusion of Nonautologous Red Blood Cells into Peripheral Vein, Percutaneous Approach (ICD-10-PCS; 2019-12-07)
DX: S72.302A Unspecified fracture of shaft of left femur, initial encounter for closed fracture (principal); M97.02XA Periprosthetic fracture around internal prosthetic left hip joint, initial encounter; D62 Acute posthemorrhagic anemia; E22.2 Syndrome of inappropriate secretion of antidiuretic hormone; I10 Essential (primary) hypertension; M35.3 Polymyalgia rheumatica; E78.00 Pure hypercholesterolemia, unspecified; G47.33 Obstructive sleep apnea (adult) (pediatric); R32 Unspecified urinary incontinence; I48.0 Paroxysmal atrial fibrillation; F41.9 Anxiety disorder, unspecified; Z66 Do not resuscitate; E78.5 Hyperlipidemia, unspecified; W19.XXXA Unspecified fall, initial encounter; I25.119 Atherosclerotic heart disease of native coronary artery with unspecified angina pectoris; D72.829 Elevated white blood cell count, unspecified; E87.5 Hyperkalemia; Z90.710 Acquired absence of both cervix and uterus; Z88.0 Allergy status to penicillin; Z91.011 Allergy to milk products; Z79.899 Other long term (current) drug therapy; Y92.9 Unspecified place or not applicable; Z79.52 Long term (current) use of systemic steroids

== ENCOUNTER 2021-04-13 10:50 | Observation (INO) ==
[2021-04-13] MEDS ORDERED: NS 0.9% 1000 ml BAG 1,000 ML IV ONE ×2 (11:13→14:27)
[2021-04-13 11:52] LABS: Urine Appearance Cloudy; Urine Bilirubin Negative (Negative); Urine Blood 2+ (Negative); Urine Color Yellow; Urine Glucose Negative (Negative); Urine Ketones Negative (Negative); Urine Nitrite Negative (Negative); Urine Protein Negative (Negative); Urine Specific Gravity 1.009 (1.002-1.030); Urine Urobilinogen Negative (Negative)
[2021-04-13 12:09] LABS: ABS Lymphocytes 0.9 10^3/ul (1.0-4.8); ABS Monocytes 0.7 10^3/ul (0-0.8); ABS Neutrophils 10.5 10^3/ul (1.5-7.7); Eosinophil % 0.3 %; Hematocrit 41 % (35-47); Hemoglobin 14.1 g/dL (12.0-16.0); Lymphocyte % 7.1 %; Mean Corpuscular HGB Conc 34 g/dL (31-36); Mean Corpuscular Hemoglobin 31 pg (27-31); Mean Corpuscular Volume 92 fL (80-97); Mean Platelet Volume 6.4 fL (7.4-10.4); Platelet Count 331 10^3/uL (150-450); Red Blood Count 4.48 10^6 /uL (3.70-4.87); Red Cell Distribution Width 14 % (10-15); White Blood Count 12.2 10^3/uL (3.5-10.8)
[2021-04-13 12:13] LABS: Urine Bacteria 1+ (Absent); Urine Red Blood Cell 3+(>10/hpf) (Absent); Urine Squamous Epithelial Cell Present (Absent); Urine White Blood Cell 3+(>20/hpf) (Absent)
[2021-04-13 12:26] LABS: Troponin I 0.01 ng/mL (<0.03)
[2021-04-13 12:27] LABS: Albumin 4.1 g/dL (3.2-5.2); Albumin/Globulin Ratio 1.2 (1-3); Calcium 9.7 mg/dL (8.6-10.3); EGFR African American 85.8 (>60); EGFR Non-African American 70.9 (>60); Globulin 3.4 g/dL (2-4); Magnesium 1.9 mg/dL (1.9-2.7); Potassium 4.3 mmol/L (3.5-5.0); Total Bilirubin 0.5 mg/dL (0.2-1.0); Total Protein 7.5 g/dL (6.4-8.9)
[2021-04-13 12:59] LABS: TSH Ultra Thyroid Stim Horm 3.32 mcIU/mL (0.34-5.60)
[2021-04-13] MEDS ORDERED: cefTRIAXone 1 gm/50 mL NS BAG 1 GM/50 ML BAG IVPB ONE (14:27)
[2021-04-13] MEDS ORDERED: Labetalol IV 5 MG/ML 20 ml VIAL IV PUSH ONE (14:33)
[2021-04-13] MEDS ORDERED: Enoxaparin 40 MG/0.4 ML SYR SUBCUT SCH (18:00)
[2021-04-13] MEDS ORDERED: Dextran 70/Hypromellose Tears Eye Drops 15 ml BTL (for Artificials Tears) BOTH EYES PRN (22:47)
[2021-04-13] MEDS ORDERED: NS 0.9% 1000 ml BAG 1,000 ML IV SCH (23:15)
[2021-04-14 06:57] LABS: ABS Eosinophils 0.1 10^3/ul (0-0.6); ABS Lymphocytes 1.7 10^3/ul (1.0-4.8); ABS Monocytes 0.9 10^3/ul (0-0.8); ABS Neutrophils 7.2 10^3/ul (1.5-7.7); Hematocrit 36 % (35-47); Hemoglobin 12.6 g/dL (12.0-16.0); Lymphocyte % 17.4 %; Mean Corpuscular HGB Conc 35 g/dL (31-36); Mean Corpuscular Hemoglobin 32 pg (27-31); Mean Corpuscular Volume 91 fL (80-97); Platelet Count 306 10^3/uL (150-450); Red Blood Count 3.95 10^6 /uL (3.70-4.87); Red Cell Distribution Width 14 % (10-15)
[2021-04-14 07:16] LABS: Calcium 8.6 mg/dL (8.6-10.3); EGFR African American 106.2 (>60); EGFR Non-African American 87.8 (>60); Potassium 3.7 mmol/L (3.5-5.0)
[2021-04-14] MEDS ORDERED: Cholecalciferol (VIT D3) 1,000 unit TAB PO SCH (09:00)
[2021-04-14] MEDS ORDERED: Calcium Citrate 200 mg TAB PO SCH (09:00)
[2021-04-14 11:13] VITALS: BP 119/56
[2021-04-14] MEDS ORDERED: cefTRIAXone 1 gm/50 mL NS BAG 1 GM/50 ML BAG IVPB SCH (15:00)
== END 2021-04-14 14:00 | disposition home or self-care (01) ==
LOC: ED 10:50 → INTOOBSV 23:31 → SSU 23:31
PROVIDERS: ADMIT Internal Medicine; ATTEND Internal Medicine

== ENCOUNTER 2021-07-22 21:19 | Inpatient (IN) ==
[2021-07-22] MEDS ORDERED: NS 0.9% 1000 ml BAG 1,000 ML IV ONE (21:23)
[2021-07-22] MEDS ORDERED: Iodixanol (CONTRAST) 320 MG/ML 100 ML SDV IV ONE (21:54)
[2021-07-22 22:01] LABS: Hematocrit 43 % (35-47); Mean Corpuscular HGB Conc 35 g/dL (31-36); Mean Corpuscular Hemoglobin 31 pg (27-31); Mean Corpuscular Volume 90 fL (80-97); Mean Platelet Volume 6.8 fL (7.4-10.4); Platelet Count 262 10^3/uL (150-450); Red Cell Distribution Width 14 % (10-15); White Blood Count 16.1 10^3/uL (3.5-10.8)
[2021-07-22 22:14] LABS: Rapid COVID-19 Molecular Undetected (Undetected)
[2021-07-22 22:16] LABS: Activated Partial Thrombo Time 28.7 seconds (26.0-38.0); INR 1.06 (0.86-1.15)
[2021-07-22 22:19] LABS: Albumin 3.7 g/dL (3.2-5.2); Albumin/Globulin Ratio 1.3 (1-3); Calcium 9.3 mg/dL (8.6-10.3); Globulin 2.8 g/dL (2-4); HDL Cholesterol 42.7 mg/dL; Potassium 3.7 mmol/L (3.5-5.0); Total Bilirubin 0.5 mg/dL (0.2-1.0); Total Protein 6.5 g/dL (6.4-8.9); eGFR CKD-EPI 66.8 (>60)
[2021-07-22 22:21] LABS: Troponin I 0.02 ng/mL (<0.03)
[2021-07-22 22:42] LABS: ABS Basophils 0.1 10^3/ul (0-0.2); ABS Eosinophils 0.1 10^3/ul (0-0.6); ABS Lymphocytes 1.5 10^3/ul (1.0-4.8); ABS Monocytes 1.6 10^3/ul (0-0.8); ABS Neutrophils 12.9 10^3/ul (1.5-7.7); Eosinophil % 0.3 %; Lymphocyte % 9.5 %
[2021-07-23 00:16] LABS: C Reactive Protein 12.04 mg/L (<8.01); Magnesium 1.9 mg/dL (1.9-2.7)
[2021-07-23] MEDS: Labetalol IV 5 MG/ML 20 ml VIAL IV PUSH PRN (01:20)
[2021-07-23 09:21] LABS: Urine Appearance Clear; Urine Bilirubin Negative (Negative); Urine Blood 1+ (Negative); Urine Color Yellow; Urine Glucose Negative (Negative); Urine Ketones Negative (Negative); Urine Nitrite Negative (Negative); Urine Protein Negative (Negative); Urine Specific Gravity 1.013 (1.002-1.030); Urine Urobilinogen Negative (Negative)
[2021-07-23 09:23] LABS: Urine Bacteria Absent (Absent); Urine Red Blood Cell Trace(0-2/hpf) (Absent); Urine Squamous Epithelial Cell Present (Absent); Urine White Blood Cell Absent (Absent)
[2021-07-23] MEDS: CMC:Solifenacin 5 mg TAB (NF) PO SCH (11:19)
[2021-07-23] MEDS: Calcium Citrate 200 mg TAB PO SCH (11:19)
[2021-07-23] MEDS: Cholecalciferol (VIT D3) 1,000 unit TAB PO SCH (11:20)
[2021-07-24 06:33] LABS: ABS Basophils 0.1 10^3/ul (0-0.2); ABS Eosinophils 0.1 10^3/ul (0-0.6); ABS Lymphocytes 1.8 10^3/ul (1.0-4.8); ABS Monocytes 0.9 10^3/ul (0-0.8); ABS Neutrophils 6.5 10^3/ul (1.5-7.7); Eosinophil % 1.5 %; Hematocrit 38 % (35-47); Hemoglobin 13.1 g/dL (12.0-16.0); Lymphocyte % 18.8 %; Mean Corpuscular HGB Conc 35 g/dL (31-36); Mean Corpuscular Hemoglobin 31 pg (27-31); Mean Corpuscular Volume 90 fL (80-97); Mean Platelet Volume 6.9 fL (7.4-10.4); Platelet Count 212 10^3/uL (150-450); Red Blood Count 4.21 10^6 /uL (3.70-4.87); Red Cell Distribution Width 14 % (10-15); White Blood Count 9.4 10^3/uL (3.5-10.8)
[2021-07-24 07:02] LABS: Calcium 8.9 mg/dL (8.6-10.3); Magnesium 1.7 mg/dL (1.9-2.7); Potassium 3.4 mmol/L (3.5-5.0); eGFR CKD-EPI 85.3 (>60)
[2021-07-24] MEDS ORDERED: Potassium Chlor 20 meq TAB.ER PO ONE (07:57)
[2021-07-24] MEDS ORDERED: Magnesium Sulfate 2 gm BAG 2 GM/50 ML BAG IVPB ONE (07:57)
[2021-07-24] MEDS ORDERED: Magnesium Sulfate IV 3 GM in NS 0.9% 100 ml BAG 100 ML IVPB ONE (07:59)
[2021-07-24] MEDS: Cholecalciferol (VIT D3) 1,000 unit TAB PO SCH (08:52)
[2021-07-24] MEDS: Potassium Chlor 10 meq TAB PO SCH (11:27)
[2021-07-24] MEDS: Potassium Chloride LIQUID 20 MEQ/15 ML LIQUID PO SCH ×2 (11:46→16:58)
[2021-07-24] MEDS: Calcium Citrate 200 mg TAB PO SCH (11:49)
[2021-07-24] MEDS: CMC:Solifenacin 5 mg TAB (NF) PO SCH (11:49)
[2021-07-24 20:16] LABS: TSH Ultra Thyroid Stim Horm 3.3 mcIU/mL (0.34-5.60)
[2021-07-24] MEDS: Labetalol IV 5 MG/ML 20 ml VIAL IV PUSH PRN (21:15)
[2021-07-25 06:13] LABS: Calcium 9.2 mg/dL (8.6-10.3); Magnesium 1.7 mg/dL (1.9-2.7); Potassium 3.6 mmol/L (3.5-5.0)
[2021-07-25] MEDS ORDERED: Magnesium Sulfate IV 3 GM in NS 0.9% 100 ml BAG 100 ML IVPB ONE (07:16)
[2021-07-25] MEDS ORDERED: hydrALAZINE 20 mg/ml 1 ML Vial IV IV SLOW PU PRN (07:58)
[2021-07-25] MEDS: Labetalol IV 5 MG/ML 20 ml VIAL IV PUSH PRN (08:02)
[2021-07-25 08:26] LABS: PCO2 Arterial 34 mmHg (35-45); PO2 Arterial 91 mmHg (80-100)
[2021-07-25] MEDS ORDERED: Iodixanol (CONTRAST) 320 MG/ML 100 ML SDV IV ONE (08:36)
[2021-07-25] MEDS ORDERED: niCARdipine 0.1MG/ML IVPREMIX 20 MG/200 ML BAG IV ONE (08:42)
[2021-07-25] MEDS ORDERED: Labetalol IV 5 MG/ML 20 ml VIAL ONE (08:43)
[2021-07-25] MEDS ORDERED: Alteplase (100 mg Vial) 100 mg VIAL IV ONE ×2 (08:45)
[2021-07-25] MEDS ORDERED: niCARdipine 0.1MG/ML IVPREMIX 20 MG/200 ML BAG IV SCH (09:00)
[2021-07-25 09:07] LABS: ABS Monocytes 1.2 10^3/ul (0-0.8); ABS Neutrophils 11.2 10^3/ul (1.5-7.7); Eosinophil % 0.3 %; Hematocrit 40 % (35-47); Hemoglobin 13.6 g/dL (12.0-16.0); Lymphocyte % 7.5 %; Mean Corpuscular HGB Conc 34 g/dL (31-36); Mean Corpuscular Hemoglobin 31 pg (27-31); Mean Corpuscular Volume 90 fL (80-97); Mean Platelet Volume 7.3 fL (7.4-10.4); Platelet Count 231 10^3/uL (150-450); Red Blood Count 4.42 10^6 /uL (3.70-4.87); Red Cell Distribution Width 14 % (10-15); White Blood Count 13.5 10^3/uL (3.5-10.8)
[2021-07-25 09:15] LABS: Urine Appearance Cloudy; Urine Bilirubin Negative (Negative); Urine Blood 2+ (Negative); Urine Color Yellow; Urine Glucose Negative (Negative); Urine Ketones Negative (Negative); Urine Nitrite Negative (Negative); Urine Protein Negative (Negative); Urine Specific Gravity 1.019 (1.002-1.030); Urine Urobilinogen Negative (Negative)
[2021-07-25 09:21] LABS: Urine Bacteria Absent (Absent); Urine Red Blood Cell 3+(>10/hpf) (Absent); Urine White Blood Cell 3+(>20/hpf) (Absent)
[2021-07-25] MEDS: CMC:Solifenacin 5 mg TAB (NF) PO SCH (09:25)
[2021-07-25] MEDS: Calcium Citrate 200 mg TAB PO SCH (09:25)
[2021-07-25] MEDS: Cholecalciferol (VIT D3) 1,000 unit TAB PO SCH (09:25)
[2021-07-25] MEDS ORDERED: Labetalol IV 5 MG/ML 20 ml VIAL IV PUSH PRN (09:28)
[2021-07-25 09:30] LABS: Troponin I 0.03 ng/mL (<0.03)
[2021-07-25 09:36] LABS: ALT 10 U/L (7-52); AST 16 U/L (13-39); Albumin 3.5 g/dL (3.2-5.2); Albumin/Globulin Ratio 1.5 (1-3); Alkaline Phosphatase 88 U/L (35-149); Anion Gap 7 mmol/L (2-11); Blood Urea Nitrogen 18 mg/dL (6-24); CO2 Carbon Dioxide 27 mmol/L (22-32); Calcium 8.9 mg/dL (8.6-10.3); Chloride 99 mmol/L (101-111); Globulin 2.4 g/dL (2-4); Glucose 126 mg/dL (70-100); Potassium 3.4 mmol/L (3.5-5.0); Sodium 133 mmol/L (135-145); Total Protein 5.9 g/dL (6.4-8.9); eGFR CKD-EPI 86.6 (>60)
[2021-07-25] MEDS: cefTRIAXone 1 gm/50 mL NS BAG 1 GM/50 ML BAG IVPB SCH (16:50)
[2021-07-26] MEDS: KCL 20 MEQ/100 ML IVPREMIX 20 MEQ/100 ML BAG IV SCH ×3 (03:46→08:36)
[2021-07-26] MEDS ORDERED: Potassium Chlor 20 meq TAB.ER PO SCH (04:00)
[2021-07-26 04:52] LABS: Calcium 8.7 mg/dL (8.6-10.3); Magnesium 2.3 mg/dL (1.9-2.7); Potassium 4.2 mmol/L (3.5-5.0)
[2021-07-26 04:57] LABS: eGFR CKD-EPI 83.7 (>60)
[2021-07-26 05:08] LABS: Hematocrit 40 % (35-47); Hemoglobin 13.2 g/dL (12.0-16.0); Mean Corpuscular HGB Conc 33 g/dL (31-36); Mean Corpuscular Hemoglobin 31 pg (27-31); Mean Corpuscular Volume 92 fL (80-97); Mean Platelet Volume 7.5 fL (7.4-10.4); Platelet Count 235 10^3/uL (150-450); Red Blood Count 4.31 10^6 /uL (3.70-4.87); Red Cell Distribution Width 15 % (10-15); White Blood Count 12.2 10^3/uL (3.5-10.8)
[2021-07-26] MEDS: CMC:Solifenacin 5 mg TAB (NF) PO SCH (09:25)
[2021-07-26] MEDS: Cholecalciferol (VIT D3) 1,000 unit TAB PO SCH (09:25)
[2021-07-26] MEDS ORDERED: Furosemide 20 mg/2 ml IV VIAL IV ONE (09:36)
[2021-07-26 14:15] LABS: ABS Lymphocytes 0.9 10^3/ul (1.0-4.8); ABS Monocytes 0.8 10^3/ul (0-0.8); ABS Neutrophils 11.9 10^3/ul (1.5-7.7); Eosinophil % 0.2 %; Hematocrit 38 % (35-47); Lymphocyte % 6.9 %; Mean Corpuscular HGB Conc 34 g/dL (31-36); Mean Corpuscular Hemoglobin 31 pg (27-31); Mean Corpuscular Volume 91 fL (80-97); Mean Platelet Volume 7.5 fL (7.4-10.4); Platelet Count 233 10^3/uL (150-450); Red Blood Count 4.17 10^6 /uL (3.70-4.87); Red Cell Distribution Width 15 % (10-15); White Blood Count 13.6 10^3/uL (3.5-10.8)
[2021-07-26 15:53] LABS: Urine Appearance Cloudy; Urine Bilirubin Negative (Negative); Urine Blood 3+ (Negative); Urine Color Amber; Urine Glucose Negative (Negative); Urine Ketones Negative (Negative); Urine Nitrite Negative (Negative); Urine Protein 2+(100 mg/dL) (Negative); Urine Specific Gravity 1.014 (1.002-1.030); Urine Urobilinogen Negative (Negative)
[2021-07-26 15:57] LABS: Urine Bacteria Absent (Absent); Urine Red Blood Cell 3+(>10/hpf) (Absent); Urine Squamous Epithelial Cell Present (Absent); Urine White Blood Cell Trace(0-5/hpf) (Absent)
[2021-07-26] MEDS: cefTRIAXone 1 gm/50 mL NS BAG 1 GM/50 ML BAG IVPB SCH (17:09)
[2021-07-26] MEDS ORDERED: Senna TAB 8.6 mg TAB PO PRN (17:32)
[2021-07-26] MEDS ORDERED: Sodium Phosphate ADULT ENEMA 133 ML BTL PR ONE (18:29)
[2021-07-26] MEDS: Magnesium Hydroxide LIQ 30 ML UDC PO SCH (21:02)
[2021-07-27 07:51] LABS: ABS Basophils 0.1 10^3/ul (0-0.2); ABS Eosinophils 0.1 10^3/ul (0-0.6); ABS Lymphocytes 1.3 10^3/ul (1.0-4.8); ABS Monocytes 1.2 10^3/ul (0-0.8); ABS Neutrophils 9.3 10^3/ul (1.5-7.7); Eosinophil % 0.7 %; Hematocrit 37 % (35-47); Hemoglobin 12.5 g/dL (12.0-16.0); Lymphocyte % 10.9 %; Mean Corpuscular HGB Conc 34 g/dL (31-36); Mean Corpuscular Hemoglobin 31 pg (27-31); Mean Corpuscular Volume 91 fL (80-97); Mean Platelet Volume 7.5 fL (7.4-10.4); Nucleated Red Blood Cells % 0.1; Platelet Count 240 10^3/uL (150-450); Red Blood Count 4.09 10^6 /uL (3.70-4.87); Red Cell Distribution Width 14 % (10-15)
[2021-07-27 08:03] LABS: Troponin I 0.01 ng/mL (<0.03)
[2021-07-27 08:05] LABS: Calcium 8.4 mg/dL (8.6-10.3); Potassium 3.9 mmol/L (3.5-5.0); eGFR CKD-EPI 86.6 (>60)
[2021-07-27] MEDS: CMC:Solifenacin 5 mg TAB (NF) PO SCH (08:32)
[2021-07-27] MEDS: Cholecalciferol (VIT D3) 1,000 unit TAB PO SCH (08:32)
[2021-07-27] MEDS: Magnesium Hydroxide LIQ 30 ML UDC PO SCH ×2 (08:34→20:00)
[2021-07-27] MEDS: Polyethylene Glycol 3350 17 GM PACKET PO SCH (08:34)
[2021-07-27] MEDS ORDERED: HYDROmorphone 0.5 MG/0.5 ML SYRINGE IV SLOW PU PRN (09:51)
[2021-07-27] MEDS ORDERED: HYDROmorphone 1 MG/1 ML SYRINGE IV SLOW PU PRN (09:52)
[2021-07-27] MEDS ORDERED: HYDROmorphone 0.5 MG/0.5 ML SYRINGE IV SLOW PU ONE (09:54)
[2021-07-27] MEDS ORDERED: PEG 3000 GI LAVAGE 1 GALLON PO ONE (12:52)
[2021-07-27] MEDS: cefTRIAXone 1 gm/50 mL NS BAG 1 GM/50 ML BAG IVPB SCH (18:15)
[2021-07-27] MEDS ORDERED: Senna TAB 8.6 mg TAB PO SCH (21:00)
[2021-07-28] MEDS ORDERED: PEG 3000 GI LAVAGE 1 GALLON PO ONE (07:00)
[2021-07-28 07:11] LABS: Hematocrit 36 % (35-47); Hemoglobin 12.6 g/dL (12.0-16.0); Mean Corpuscular HGB Conc 35 g/dL (31-36); Mean Corpuscular Hemoglobin 32 pg (27-31); Mean Corpuscular Volume 91 fL (80-97); Mean Platelet Volume 7.5 fL (7.4-10.4); Platelet Count 242 10^3/uL (150-450); Red Cell Distribution Width 14 % (10-15); White Blood Count 7.6 10^3/uL (3.5-10.8)
[2021-07-28 07:18] LABS: Calcium 8.5 mg/dL (8.6-10.3); Magnesium 2.2 mg/dL (1.9-2.7); Phosphorus 3.1 mg/dL (2.5-5.0); Potassium 3.7 mmol/L (3.5-5.0); eGFR CKD-EPI 85.6 (>60)
[2021-07-28] MEDS ORDERED: Potassium Chlor 20 meq TAB.ER PO ONE (07:52)
[2021-07-28] MEDS ORDERED: Potassium Chloride LIQUID 20 MEQ/15 ML LIQUID PO ONE (08:19)
[2021-07-28] MEDS: CMC:Solifenacin 5 mg TAB (NF) PO SCH (09:19)
[2021-07-28] MEDS: Polyethylene Glycol 3350 17 GM PACKET PO SCH (09:19)
[2021-07-28] MEDS: Magnesium Hydroxide LIQ 30 ML UDC PO SCH (09:19)
[2021-07-28] MEDS: Cholecalciferol (VIT D3) 1,000 unit TAB PO SCH (09:20)
[2021-07-28] MEDS ORDERED: cefTRIAXone 1 gm/50 mL NS BAG 1 GM/50 ML BAG IVPB ONE (11:48)
[2021-07-28 12:13] VITALS: BP 143/58
== END 2021-07-28 14:30 | DRG 391 ==
LOC: ED 21:19 → EDHOLD 21:19 → SUATTDRO 23:32 → MEDTELE 07-23 11:34 → SUATTDRO 07-24 16:00 → MEDTELE 07-25 00:59 → ICU 07-25 08:42 → MEDTELE 07-26 10:26
PROVIDERS: ADMIT Internal Medicine; ATTEND Internal Medicine

== ENCOUNTER 2021-11-01 11:24 | Inpatient (IN) ==
[2021-11-01 12:23] LABS: ABS Eosinophils 0.1 10^3/ul (0-0.6); ABS Lymphocytes 0.7 10^3/ul (1.0-4.8); ABS Neutrophils 11.6 10^3/ul (1.5-7.7); Eosinophil % 0.4 %; Hematocrit 34 % (35-47); Hemoglobin 11.3 g/dL (12.0-16.0); Lymphocyte % 5.2 %; Mean Corpuscular HGB Conc 33 g/dL (31-36); Mean Corpuscular Hemoglobin 30 pg (27-31); Mean Corpuscular Volume 90 fL (80-97); Mean Platelet Volume 7.3 fL (7.4-10.4); Platelet Count 529 10^3/uL (150-450); Red Blood Count 3.76 10^6 /uL (3.70-4.87); Red Cell Distribution Width 17 % (10-15); White Blood Count 13.4 10^3/uL (3.5-10.8)
[2021-11-01 12:30] LABS: INR 2.07 (0.86-1.15)
[2021-11-01 12:53] LABS: Albumin 2.9 g/dL (3.2-5.2); Albumin/Globulin Ratio 1.1 (1-3); C Reactive Protein 222.65 mg/L (<8.01); Globulin 2.6 g/dL (2-4); Potassium 4.1 mmol/L (3.5-5.0); Total Bilirubin 0.4 mg/dL (0.2-1.0); Total Protein 5.5 g/dL (6.4-8.9); eGFR CKD-EPI 84.3 (>60)
[2021-11-01] MEDS ORDERED: Albuterol HFA INHALER 8 gm MDI INH PRN (15:44)
[2021-11-01] MEDS ORDERED: Magnesium Hydroxide LIQ 30 ML UDC PO PRN (15:44)
[2021-11-01] MEDS ORDERED: Piperacillin/Tazobac ADVAN 3.375 GM in NS 0.9% 100 ml BAG 100 ML IV ONE (15:47)
[2021-11-01] MEDS ORDERED: Zosyn per Pharmacy NOTE FOLLOW UP SCH (16:00)
[2021-11-01] MEDS ORDERED: LORazepam 2 mg VIAL 1 ml IV PUSH ONE (16:41)
[2021-11-01] MEDS ORDERED: Lorazepam PYXIS KEY PRN (16:41)
[2021-11-01 18:28] LABS: High Sensitivity Troponin 1 Hr 5 pg/mL (<15)
[2021-11-01 19:48] LABS: Body Fluid Appearance Cloudy; Body Fluid Color Red; Body Fluid Source Pleural Fluid
[2021-11-01 20:08] LABS: Body Fluid Mono 13 %; Body Fluid Other Cells 2; Body Fluid Total Cells Counted 200
[2021-11-01] MEDS: ZOSYN 3.375 GM Q8H per EXTENDED INFUSION IV SCH (20:26)
[2021-11-01 20:45] LABS: Body Fluid WBC 2929 /mcL
[2021-11-02 04:10] LABS: Urine Appearance Cloudy; Urine Bilirubin Negative (Negative); Urine Blood 2+ (Negative); Urine Color Yellow; Urine Glucose Negative (Negative); Urine Ketones Negative (Negative); Urine Nitrite Negative (Negative); Urine Protein 1+(30 mg/dL) (Negative); Urine Urobilinogen Negative (Negative)
[2021-11-02 04:27] LABS: Urine Bacteria Absent (Absent); Urine Red Blood Cell 3+(>10/hpf) (Absent); Urine White Blood Cell 3+(>20/hpf) (Absent)
[2021-11-02] MEDS: ZOSYN 3.375 GM Q8H per EXTENDED INFUSION IV SCH ×3 (04:54→19:50)
[2021-11-02 06:04] LABS: ABS Basophils 0.1 10^3/ul (0-0.2); ABS Eosinophils 0.2 10^3/ul (0-0.6); ABS Lymphocytes 1.5 10^3/ul (1.0-4.8); ABS Neutrophils 5.5 10^3/ul (1.5-7.7); Hematocrit 31 % (35-47); Hemoglobin 10.4 g/dL (12.0-16.0); Lymphocyte % 18.2 %; Mean Corpuscular HGB Conc 33 g/dL (31-36); Mean Corpuscular Hemoglobin 30 pg (27-31); Mean Corpuscular Volume 90 fL (80-97); Platelet Count 455 10^3/uL (150-450); Red Blood Count 3.46 10^6 /uL (3.70-4.87); Red Cell Distribution Width 17 % (10-15); White Blood Count 8.2 10^3/uL (3.5-10.8)
[2021-11-02 06:26] LABS: INR 1.6 (0.86-1.15)
[2021-11-02 06:27] LABS: C Reactive Protein 194.84 mg/L (<8.01); Calcium 8.6 mg/dL (8.6-10.3); Potassium 3.8 mmol/L (3.5-5.0); eGFR CKD-EPI 79.1 (>60)
[2021-11-02] MEDS: Cholecalciferol (VIT D3) 1,000 unit TAB PO SCH (10:07)
[2021-11-03] MEDS: ZOSYN 3.375 GM Q8H per EXTENDED INFUSION IV SCH ×3 (05:23→23:04)
[2021-11-03 06:13] LABS: ABS Basophils 0.1 10^3/ul (0-0.2); ABS Eosinophils 0.3 10^3/ul (0-0.6); ABS Lymphocytes 1.3 10^3/ul (1.0-4.8); ABS Monocytes 0.8 10^3/ul (0-0.8); ABS Neutrophils 4.5 10^3/ul (1.5-7.7); Eosinophil % 4.2 %; Hematocrit 30 % (35-47); Hemoglobin 10.3 g/dL (12.0-16.0); Lymphocyte % 19.2 %; Mean Corpuscular HGB Conc 34 g/dL (31-36); Mean Corpuscular Hemoglobin 30 pg (27-31); Mean Corpuscular Volume 89 fL (80-97); Platelet Count 463 10^3/uL (150-450); Red Blood Count 3.41 10^6 /uL (3.70-4.87); Red Cell Distribution Width 16 % (10-15); White Blood Count 6.9 10^3/uL (3.5-10.8)
[2021-11-03 06:41] LABS: Calcium 8.5 mg/dL (8.6-10.3); Magnesium 1.9 mg/dL (1.9-2.7); Potassium 3.9 mmol/L (3.5-5.0); eGFR CKD-EPI 85.6 (>60)
[2021-11-03] MEDS: Cholecalciferol (VIT D3) 1,000 unit TAB PO SCH (10:26)
[2021-11-03] MEDS ORDERED: fentaNYL 100 mcg/2 ml 50 MCG/ML VIAL ONE (13:53)
[2021-11-03] MEDS ORDERED: Heparin 2 UNITS/ML 1000 mls 1,000 ML IV ONE (13:54)
[2021-11-03 14:05] LABS: Lactate Dehydrogenase, BF 466 U/L
[2021-11-03 14:07] LABS: Fluid Type, Amylase PLEURAL; Fluid Type: PLEURAL; Triglycerides (BF) 27 mg/dL
[2021-11-03 14:35] LABS: Glucose, BF 150 mg/dL
[2021-11-03 14:38] LABS: Albumin, BF 2.3 g/dL; Fluid Type, Albumin PLEURAL
[2021-11-03 14:39] LABS: Fluid Type, Protein, Total PLEURAL; Total Protein, BF 3.7 g/dL
[2021-11-04] MEDS: ZOSYN 3.375 GM Q8H per EXTENDED INFUSION IV SCH ×2 (05:26→15:49)
[2021-11-04 06:24] LABS: ABS Basophils 0.1 10^3/ul (0-0.2); ABS Eosinophils 0.3 10^3/ul (0-0.6); ABS Lymphocytes 1.4 10^3/ul (1.0-4.8); ABS Monocytes 0.9 10^3/ul (0-0.8); Eosinophil % 3.9 %; Hematocrit 29 % (35-47); Hemoglobin 9.8 g/dL (12.0-16.0); Lymphocyte % 17.9 %; Mean Corpuscular HGB Conc 34 g/dL (31-36); Mean Corpuscular Hemoglobin 30 pg (27-31); Mean Corpuscular Volume 88 fL (80-97); Mean Platelet Volume 6.8 fL (7.4-10.4); Platelet Count 464 10^3/uL (150-450); Red Cell Distribution Width 16 % (10-15); White Blood Count 7.6 10^3/uL (3.5-10.8)
[2021-11-04 06:40] LABS: Calcium 8.4 mg/dL (8.6-10.3); Magnesium 1.9 mg/dL (1.9-2.7); Potassium 3.8 mmol/L (3.5-5.0); eGFR CKD-EPI 87.4 (>60)
[2021-11-04] MEDS: Cholecalciferol (VIT D3) 1,000 unit TAB PO SCH (09:31)
[2021-11-04 13:10] LABS: C Reactive Protein 97.92 mg/L (<8.01)
[2021-11-04 17:39] VITALS: BP 169/77
[2021-11-04] MEDS ORDERED: Amoxicillin/Clavul 875/125 TAB (Augmentin 875 tab) PO SCH (21:00)
== END 2021-11-04 19:02 | disposition swing bed (61) | DRG 871 ==
LOC: ED 11:24 → INTOOBSV 16:00 → EDHOLD 16:00 → MEDTELE 18:28
PROVIDERS: ADMIT Student in an Organized Health Care Education/Training Program; ATTEND Internal Medicine

== ENCOUNTER 2021-11-04 19:03 | Inpatient (IN) ==
[2021-11-04] MEDS ORDERED: Albuterol HFA INHALER 8 gm MDI INH PRN (19:30)
[2021-11-04] MEDS ORDERED: Magnesium Hydroxide LIQ 30 ML UDC PO PRN (19:30)
[2021-11-04] MEDS ORDERED: Al Hydrox/Mg Hydrox/Simet LIQ 30 ML UDC PO PRN (19:46)
[2021-11-04] MEDS: FERROUS FUMARATE PO SCH (21:23)
[2021-11-04] MEDS: Amoxicillin/Clavul 875/125 TAB (Augmentin 875 tab) PO SCH (22:15)
[2021-11-05] MEDS ORDERED: CMCS:Lactase Enzyme (NF) 3,000 UNIT TAB PO SCH (07:30)
[2021-11-05] MEDS ORDERED: CALCIUM CITRATE 250 MG PO SCH (09:00)
[2021-11-05] MEDS: Amoxicillin/Clavul 875/125 TAB (Augmentin 875 tab) PO SCH ×2 (10:25→20:30)
[2021-11-05] MEDS: FERROUS FUMARATE PO SCH ×3 (10:25→20:31)
[2021-11-05] MEDS: Cholecalciferol (VIT D3) 1,000 unit TAB PO SCH (10:27)
[2021-11-05] MEDS: CMCS:Lactase Enzyme (NF) 3,000 UNIT TAB PO SCH (17:01)
[2021-11-06] MEDS: CMCS:Lactase Enzyme (NF) 3,000 UNIT TAB PO SCH ×2 (08:56→11:37)
[2021-11-06] MEDS: Amoxicillin/Clavul 875/125 TAB (Augmentin 875 tab) PO SCH (08:57)
[2021-11-06] MEDS: Cholecalciferol (VIT D3) 1,000 unit TAB PO SCH (08:57)
[2021-11-06] MEDS ORDERED: Calcium Citrate 200 mg TAB PO SCH (09:00)
[2021-11-06] MEDS: FERROUS FUMARATE PO SCH (09:38)
[2021-11-06 09:45] LABS: Rapid COVID-19 Molecular Undetected (Undetected)
[2021-11-06 11:54] VITALS: BP 134/59
== END 2021-11-06 12:30 | DRG 186 ==
LOC: SUATTDRO 19:03 → MEDTELE 19:03
PROVIDERS: ADMIT Student in an Organized Health Care Education/Training Program; ATTEND Pediatrics

== ENCOUNTER 2021-12-17 16:52 | Inpatient (IN) ==
[2021-12-17 18:27] LABS: ABS Basophils 0.1 10^3/ul (0-0.2); ABS Eosinophils 0.2 10^3/ul (0-0.6); ABS Lymphocytes 1.3 10^3/ul (1.0-4.8); ABS Monocytes 0.9 10^3/ul (0-0.8); ABS Neutrophils 8.7 10^3/ul (1.5-7.7); Eosinophil % 1.9 %; Hematocrit 32 % (35-47); Lymphocyte % 11.3 %; Mean Corpuscular HGB Conc 34 g/dL (31-36); Mean Corpuscular Hemoglobin 30 pg (27-31); Mean Corpuscular Volume 88 fL (80-97); Mean Platelet Volume 6.9 fL (7.4-10.4); Platelet Count 285 10^3/uL (150-450); Red Blood Count 3.65 10^6 /uL (3.70-4.87); Red Cell Distribution Width 17 % (10-15); White Blood Count 11.2 10^3/uL (3.5-10.8)
[2021-12-17 18:34] LABS: Activated Partial Thrombo Time 27.2 seconds (26.0-38.0); INR 1.09 (0.86-1.15)
[2021-12-17 18:49] LABS: Albumin 3.2 g/dL (3.2-5.2); Albumin/Globulin Ratio 1.4 (1-3); Calcium 8.4 mg/dL (8.6-10.3); Globulin 2.3 g/dL (2-4); Potassium 4.2 mmol/L (3.5-5.0); Total Bilirubin 0.3 mg/dL (0.2-1.0); Total Protein 5.5 g/dL (6.4-8.9); eGFR CKD-EPI 64.9 (>60)
[2021-12-17] MEDS ORDERED: NS 0.9% 1000 ml BAG 1,000 ML IV SCH ×2 (19:30)
[2021-12-17] MEDS ORDERED: Heparin - STEMI 5,000 UNITS/ML 1 ml VIAL IV ONE (19:30)
[2021-12-17] MEDS ORDERED: Heparin DRIP 25,000 UNITS BAG 25,000 UNITS/500 ML BAG IV SCH (19:30)
[2021-12-17] MEDS ORDERED: Magnesium Hydroxide LIQ 30 ML UDC PO PRN (19:32)
[2021-12-17] MEDS ORDERED: Albuterol HFA INHALER 8 gm MDI INH PRN (19:32)
[2021-12-17] MEDS ORDERED: cefTRIAXone 1 gm/50 mL D5W 1 GM/50 ML BAG IV ONE (19:58)
[2021-12-17] MEDS ORDERED: Heparin 5000 UNITS/ML 1 mL VIAL IV SCH (20:00)
[2021-12-17] MEDS ORDERED: Al Hydrox/Mg Hydrox/Simet LIQ 30 ML UDC PO PRN (20:17)
[2021-12-17] MEDS ORDERED: Benzocaine/Menthol LOZ MT PRN (20:18)
[2021-12-17 20:26] LABS: Hematocrit 32 % (35-47); Hemoglobin 10.6 g/dL (12.0-16.0); Mean Corpuscular HGB Conc 33 g/dL (31-36); Mean Corpuscular Hemoglobin 29 pg (27-31); Mean Corpuscular Volume 88 fL (80-97); Mean Platelet Volume 6.8 fL (7.4-10.4); Platelet Count 294 10^3/uL (150-450); Red Blood Count 3.63 10^6 /uL (3.70-4.87); Red Cell Distribution Width 17 % (10-15); White Blood Count 11.1 10^3/uL (3.5-10.8)
[2021-12-17 20:46] LABS: eGFR CKD-EPI 70.8 (>60)
[2021-12-17 20:51] LABS: ABS Basophils 0.1 10^3/ul (0-0.2); ABS Eosinophils 0.3 10^3/ul (0-0.6); ABS Lymphocytes 1.8 10^3/ul (1.0-4.8); ABS Monocytes 0.9 10^3/ul (0-0.8); ABS Neutrophils 8.1 10^3/ul (1.5-7.7); Eosinophil % 2.3 %; Lymphocyte % 15.9 %
[2021-12-17 23:29] LABS: C Reactive Protein 29.81 mg/L (<8.01)
[2021-12-17] MEDS: FERROUS FUMARATE PO SCH (23:38)
[2021-12-18 01:02] LABS: Magnesium 1.8 mg/dL (1.9-2.7)
[2021-12-18] MEDS ORDERED: Magnesium Sulfate IV 3 GM in NS 0.9% 100 ml BAG 100 ML IVPB ONE (01:28)
[2021-12-18 01:30] LABS: Osmolality Serum 275 mOsm/kg (275-295)
[2021-12-18] MEDS ORDERED: Magnesium Sulfate 2 gm BAG 2 GM/50 ML BAG ONE (01:55)
[2021-12-18] MEDS ORDERED: Magnesium Sulfate 2 GM IV (Premix) IVPB ONE (02:00)
[2021-12-18] MEDS ORDERED: Magnesium Sulfate 1 GM IV 1 GM/100 ML BAG IV ONE (03:00)
[2021-12-18 03:52] LABS: Hematocrit 32 % (35-47); Hemoglobin 10.8 g/dL (12.0-16.0); Mean Corpuscular HGB Conc 34 g/dL (31-36); Mean Corpuscular Hemoglobin 30 pg (27-31); Mean Corpuscular Volume 89 fL (80-97); Mean Platelet Volume 6.9 fL (7.4-10.4); Platelet Count 247 10^3/uL (150-450); Red Blood Count 3.58 10^6 /uL (3.70-4.87); Red Cell Distribution Width 18 % (10-15)
[2021-12-18 04:22] LABS: ABS Basophils 0.1 10^3/ul (0-0.2); ABS Eosinophils 0.4 10^3/ul (0-0.6); ABS Lymphocytes 2.5 10^3/ul (1.0-4.8); ABS Monocytes 0.9 10^3/ul (0-0.8); Lymphocyte % 25.3 %; Nucleated Red Blood Cells % 0.1
[2021-12-18 04:33] LABS: Albumin/Globulin Ratio 1.3 (1-3); Calcium 8.5 mg/dL (8.6-10.3); Globulin 2.4 g/dL (2-4); Magnesium 2.6 mg/dL (1.9-2.7); Potassium 3.6 mmol/L (3.5-5.0); Total Bilirubin 0.3 mg/dL (0.2-1.0); Total Protein 5.4 g/dL (6.4-8.9); eGFR CKD-EPI 79.1 (>60)
[2021-12-18] MEDS ORDERED: NS 0.9% 1000 ml BAG 1,000 ML IV SCH (05:15)
[2021-12-18] MEDS: KCL 20 MEQ/100 ML IVPREMIX 20 MEQ/100 ML BAG IV SCH ×2 (06:13→19:39)
[2021-12-18] MEDS ORDERED: ceFAZolin 2 GM in NS PREMIX 2 GM/100 ML BAG IVPB SCH (08:00)
[2021-12-18] MEDS: CMCS: Lactase Enzyme (NF) 3,000 UNIT TAB PO SCH ×3 (09:12→18:56)
[2021-12-18] MEDS ORDERED: methylPREDNISolone SOD SUCC 40 mg/ml 1 ml VIAL IV ONE (10:55)
[2021-12-18] MEDS: FERROUS FUMARATE PO SCH ×3 (11:00→22:29)
[2021-12-18 11:53] LABS: Calcium 8.6 mg/dL (8.6-10.3); Potassium 3.8 mmol/L (3.5-5.0); eGFR CKD-EPI 83.4 (>60)
[2021-12-18] MEDS ORDERED: Ketamine HCL 50 mg/ml 10 ml VIAL (500 MG) ONE (12:25)
[2021-12-18] MEDS ORDERED: fentaNYL 250 mcg/5 ml 50 MCG/ML 5 ml VIAL (250 MCG) ONE (12:25)
[2021-12-18] MEDS ORDERED: Rocuronium 50 mg VIAL 10 mg/ml 5 ml VIAL (50 mg) ONE (12:26)
[2021-12-18] MEDS ORDERED: Ondansetron 4 mg VIAL 2 MG/ML 2 ml VIAL ONE (12:27)
[2021-12-18] MEDS ORDERED: Phenylephrine IV 10 MG/ML 1 ml VIAL ONE (12:28)
[2021-12-18] MEDS ORDERED: Propofol 10 MG/ML 20 ML BTL ONE (12:33)
[2021-12-18] MEDS ORDERED: Iodixanol 320 (CONTRAST) 100 ML SDV ONE (13:11)
[2021-12-18] MEDS ORDERED: Midazolam 5 mg/5 ml VIAL 1 mg/ml 5 ml VIAL (5 mg) ONE (13:11)
[2021-12-18] MEDS ORDERED: Heparin 2 UNITS/ML 1000 mls 2,000 ML IV ONE (13:12)
[2021-12-18] MEDS ORDERED: Lidocaine 1% VIAL 10 MG/ML VIAL ONE (13:14)
[2021-12-18] MEDS ORDERED: Succinylcholine 200 mg VIAL 20 mg/ml 10 ml VIAL (200 mg) ONE (13:24)
[2021-12-18] MEDS ORDERED: Dexmedetomidine 200 mcg/2 ml 2 ml VIAL (200 mcg) ONE (13:47)
[2021-12-18] MEDS ORDERED: Heparin 1,000 UNIT/ML 10 ml (10,000 UNITS) CATHLAB/DIALYSIS ONE (14:14)
[2021-12-18] MEDS ORDERED: Heparin 2 UNITS/ML IVPREMIX 1,000 UNIT/500 ML BAG IV ONE (14:30)
[2021-12-18] MEDS ORDERED: Heparin 2 UNITS/ML 1000 mls 1,000 ML IV ONE (14:33)
[2021-12-18] MEDS ORDERED: EPHEDrine (Pressors) 50 MG/ML VIAL ONE (14:38)
[2021-12-18] MEDS ORDERED: fentaNYL 100 mcg/2 ml 50 MCG/ML VIAL IV PRN (16:23)
[2021-12-18] MEDS ORDERED: Naloxone 0.4 mg VIAL 0.4 mg/ml 1 ml VIAL IV PRN (16:23)
[2021-12-18] MEDS ORDERED: Heparin DRIP 25,000 UNITS BAG 25,000 UNITS/500 ML BAG IV SCH (17:54)
[2021-12-18] MEDS ORDERED: KCL 20 MEQ/100 ML IVPREMIX 20 MEQ/100 ML BAG IV SCH (20:00)
[2021-12-18] MEDS ORDERED: NS 0.9% 1000 ml BAG 1,000 ML IV ONE (22:08)
[2021-12-18] MEDS ORDERED: Iohexol 300 (CONTRAST) 10 ML SDV IV ONE (22:34)
[2021-12-18 22:49] LABS: ABS Lymphocytes 0.6 10^3/ul (1.0-4.8); ABS Monocytes 0.9 10^3/ul (0-0.8); ABS Neutrophils 10.7 10^3/ul (1.5-7.7); Hematocrit 29 % (35-47); Hemoglobin 9.7 g/dL (12.0-16.0); Lymphocyte % 5.1 %; Mean Corpuscular HGB Conc 33 g/dL (31-36); Mean Corpuscular Hemoglobin 29 pg (27-31); Mean Corpuscular Volume 88 fL (80-97); Mean Platelet Volume 6.7 fL (7.4-10.4); Platelet Count 260 10^3/uL (150-450); Red Cell Distribution Width 17 % (10-15); White Blood Count 12.2 10^3/uL (3.5-10.8)
[2021-12-19 04:26] LABS: ABS Neutrophils 7.1 10^3/ul (1.5-7.7); Hematocrit 28 % (35-47); Hemoglobin 9.5 g/dL (12.0-16.0); Lymphocyte % 11.3 %; Mean Corpuscular HGB Conc 34 g/dL (31-36); Mean Corpuscular Hemoglobin 30 pg (27-31); Mean Corpuscular Volume 88 fL (80-97); Mean Platelet Volume 6.6 fL (7.4-10.4); Platelet Count 261 10^3/uL (150-450); Red Blood Count 3.19 10^6 /uL (3.70-4.87); Red Cell Distribution Width 17 % (10-15); White Blood Count 9.1 10^3/uL (3.5-10.8)
[2021-12-19 04:55] LABS: Calcium 7.7 mg/dL (8.6-10.3); Magnesium 2.2 mg/dL (1.9-2.7); Potassium 4.6 mmol/L (3.5-5.0); eGFR CKD-EPI 84.6 (>60)
[2021-12-19] MEDS: CMCS: Lactase Enzyme (NF) 3,000 UNIT TAB PO SCH ×3 (08:04→16:49)
[2021-12-19] MEDS: FERROUS FUMARATE PO SCH ×3 (08:30→22:14)
[2021-12-19] MEDS ORDERED: Dextran 70/Hypromellose Tears Eye Drops 15 ml BTL (for Artificials Tears) BOTH EYES PRN (11:11)
[2021-12-19] MEDS ORDERED: NS 0.9% 500 ml BAG 500 ML IV ONE ×2 (11:59→17:11)
[2021-12-19] MEDS ORDERED: NS 0.9% 1000 ml BAG 1,000 ML IV SCH (19:30)
[2021-12-20 06:24] LABS: ABS Basophils 0.1 10^3/ul (0-0.2); ABS Eosinophils 0.2 10^3/ul (0-0.6); ABS Lymphocytes 2.4 10^3/ul (1.0-4.8); ABS Monocytes 0.8 10^3/ul (0-0.8); ABS Neutrophils 4.1 10^3/ul (1.5-7.7); Eosinophil % 2.8 %; Hematocrit 26 % (35-47); Hemoglobin 8.8 g/dL (12.0-16.0); Lymphocyte % 32.2 %; Mean Corpuscular HGB Conc 34 g/dL (31-36); Mean Corpuscular Hemoglobin 30 pg (27-31); Mean Corpuscular Volume 89 fL (80-97); Mean Platelet Volume 6.8 fL (7.4-10.4); Nucleated Red Blood Cells % 0.1; Platelet Count 247 10^3/uL (150-450); Red Blood Count 2.93 10^6 /uL (3.70-4.87); Red Cell Distribution Width 17 % (10-15); White Blood Count 7.6 10^3/uL (3.5-10.8)
[2021-12-20 07:17] LABS: Calcium 7.9 mg/dL (8.6-10.3); Potassium 4.4 mmol/L (3.5-5.0); eGFR CKD-EPI 83.7 (>60)
[2021-12-20] MEDS: CMCS: Lactase Enzyme (NF) 3,000 UNIT TAB PO SCH ×3 (09:24→18:08)
[2021-12-20] MEDS: FERROUS FUMARATE PO SCH ×3 (09:29→23:31)
[2021-12-20 21:30] LABS: Hematocrit 29 % (35-47); Hemoglobin 9.7 g/dL (12.0-16.0)
[2021-12-20] MEDS ORDERED: Pantoprazole VIAL 40 MG VIAL IV ONE (23:00)
[2021-12-20] MEDS: Pantoprazole 80 mg in NS BAG 80 MG/250 ML BAG IV SCH (23:20)
[2021-12-21 00:45] LABS: Hematocrit 29 % (35-47); Hemoglobin 9.9 g/dL (12.0-16.0)
[2021-12-21 05:22] LABS: ABS Basophils 0.1 10^3/ul (0-0.2); ABS Eosinophils 0.2 10^3/ul (0-0.6); ABS Lymphocytes 1.4 10^3/ul (1.0-4.8); ABS Neutrophils 8.9 10^3/ul (1.5-7.7); Eosinophil % 1.4 %; Hematocrit 31 % (35-47); Hemoglobin 10.1 g/dL (12.0-16.0); Lymphocyte % 11.8 %; Mean Corpuscular HGB Conc 33 g/dL (31-36); Mean Corpuscular Hemoglobin 30 pg (27-31); Mean Corpuscular Volume 91 fL (80-97); Mean Platelet Volume 6.8 fL (7.4-10.4); Platelet Count 246 10^3/uL (150-450); Red Blood Count 3.37 10^6 /uL (3.70-4.87); Red Cell Distribution Width 17 % (10-15); White Blood Count 11.5 10^3/uL (3.5-10.8)
[2021-12-21 05:23] LABS: Calcium 8.7 mg/dL (8.6-10.3); Potassium 4.2 mmol/L (3.5-5.0); eGFR CKD-EPI 84.9 (>60)
[2021-12-21] MEDS: Pantoprazole 80 mg in NS BAG 80 MG/250 ML BAG IV SCH (11:11)
[2021-12-21] MEDS: FERROUS FUMARATE PO SCH ×3 (11:12→20:51)
[2021-12-21] MEDS: CMCS: Lactase Enzyme (NF) 3,000 UNIT TAB PO SCH ×3 (11:12→18:26)
[2021-12-21] MEDS ORDERED: Propofol 10 MG/ML 20 ML BTL ONE (13:54)
[2021-12-21] MEDS ORDERED: Lidocaine 2% PF 5 ML VIAL ONE (13:54)
[2021-12-21] MEDS ORDERED: Heparin DRIP 25,000 UNITS BAG 25,000 UNITS/500 ML BAG IV SCH (15:15)
[2021-12-21 18:24] LABS: ABS Eosinophils 0.1 10^3/ul (0-0.6); ABS Monocytes 0.8 10^3/ul (0-0.8); ABS Neutrophils 8.6 10^3/ul (1.5-7.7); Eosinophil % 0.5 %; Hematocrit 31 % (35-47); Lymphocyte % 9.9 %; Mean Corpuscular HGB Conc 32 g/dL (31-36); Mean Corpuscular Hemoglobin 30 pg (27-31); Mean Corpuscular Volume 92 fL (80-97); Platelet Count 160 10^3/uL (150-450); Red Blood Count 3.36 10^6 /uL (3.70-4.87); Red Cell Distribution Width 18 % (10-15); White Blood Count 10.6 10^3/uL (3.5-10.8)
[2021-12-22 04:19] LABS: ABS Basophils 0.1 10^3/ul (0-0.2); ABS Eosinophils 0.2 10^3/ul (0-0.6); ABS Neutrophils 6.9 10^3/ul (1.5-7.7); Eosinophil % 2.2 %; Hematocrit 27 % (35-47); Hemoglobin 8.9 g/dL (12.0-16.0); Lymphocyte % 19.8 %; Mean Corpuscular HGB Conc 33 g/dL (31-36); Mean Corpuscular Hemoglobin 29 pg (27-31); Mean Corpuscular Volume 89 fL (80-97); Mean Platelet Volume 6.6 fL (7.4-10.4); Platelet Count 231 10^3/uL (150-450); Red Blood Count 3.02 10^6 /uL (3.70-4.87); Red Cell Distribution Width 17 % (10-15); White Blood Count 10.2 10^3/uL (3.5-10.8)
[2021-12-22 06:23] LABS: Calcium 8.1 mg/dL (8.6-10.3)
[2021-12-22 06:24] LABS: Potassium 3.8 mmol/L (3.5-5.0); eGFR CKD-EPI 84.3 (>60)
[2021-12-22] MEDS: CMCS: Lactase Enzyme (NF) 3,000 UNIT TAB PO SCH ×3 (08:56→16:41)
[2021-12-22] MEDS: FERROUS FUMARATE PO SCH ×4 (09:00→21:12)
[2021-12-22 15:36] LABS: Hematocrit 30 % (35-47); Hemoglobin 10.2 g/dL (12.0-16.0); Mean Corpuscular HGB Conc 34 g/dL (31-36); Mean Corpuscular Hemoglobin 30 pg (27-31); Mean Corpuscular Volume 89 fL (80-97); Mean Platelet Volume 6.5 fL (7.4-10.4); Platelet Count 252 10^3/uL (150-450); Red Blood Count 3.35 10^6 /uL (3.70-4.87); Red Cell Distribution Width 18 % (10-15)
[2021-12-23] MEDS: Heparin DRIP 25,000 UNITS BAG 25,000 UNITS/500 ML BAG IV SCH (01:01)
[2021-12-23 03:05] LABS: Hematocrit 27 % (35-47); Hemoglobin 9.1 g/dL (12.0-16.0); Mean Corpuscular HGB Conc 34 g/dL (31-36); Mean Corpuscular Hemoglobin 30 pg (27-31); Mean Corpuscular Volume 89 fL (80-97); Mean Platelet Volume 6.8 fL (7.4-10.4); Platelet Count 257 10^3/uL (150-450); Red Blood Count 3.06 10^6 /uL (3.70-4.87); Red Cell Distribution Width 17 % (10-15); White Blood Count 10.5 10^3/uL (3.5-10.8)
[2021-12-23 08:19] LABS: Calcium 8.2 mg/dL (8.6-10.3); Potassium 3.9 mmol/L (3.5-5.0)
[2021-12-23 08:25] LABS: eGFR CKD-EPI 84.3 (>60)
[2021-12-23] MEDS: CMCS: Lactase Enzyme (NF) 3,000 UNIT TAB PO SCH ×3 (09:03→16:29)
[2021-12-23] MEDS: FERROUS FUMARATE PO SCH ×2 (09:03→12:06)
[2021-12-23 16:56] LABS: Ferritin 231.4 ng/mL (11-307)
[2021-12-23 18:14] LABS: Hematocrit 28 % (35-47); Hemoglobin 9.2 g/dL (12.0-16.0); Mean Corpuscular HGB Conc 33 g/dL (31-36); Mean Corpuscular Hemoglobin 29 pg (27-31); Mean Corpuscular Volume 90 fL (80-97); Mean Platelet Volume 6.7 fL (7.4-10.4); Platelet Count 284 10^3/uL (150-450); Red Blood Count 3.15 10^6 /uL (3.70-4.87); Red Cell Distribution Width 18 % (10-15)
[2021-12-24] MEDS: Heparin DRIP 25,000 UNITS BAG 25,000 UNITS/500 ML BAG IV SCH (06:08)
[2021-12-24 06:10] LABS: Hematocrit 27 % (35-47); Hemoglobin 9.1 g/dL (12.0-16.0); Mean Corpuscular HGB Conc 34 g/dL (31-36); Mean Corpuscular Hemoglobin 30 pg (27-31); Mean Corpuscular Volume 90 fL (80-97); Mean Platelet Volume 6.7 fL (7.4-10.4); Platelet Count 267 10^3/uL (150-450); Red Blood Count 3.02 10^6 /uL (3.70-4.87); Red Cell Distribution Width 17 % (10-15); White Blood Count 7.5 10^3/uL (3.5-10.8)
[2021-12-24] MEDS: CMCS: Lactase Enzyme (NF) 3,000 UNIT TAB PO SCH ×3 (07:23→16:58)
[2021-12-25 05:38] LABS: Hematocrit 29 % (35-47); Hemoglobin 9.6 g/dL (12.0-16.0); Mean Corpuscular HGB Conc 34 g/dL (31-36); Mean Corpuscular Hemoglobin 30 pg (27-31); Mean Corpuscular Volume 89 fL (80-97); Mean Platelet Volume 6.7 fL (7.4-10.4); Platelet Count 298 10^3/uL (150-450); Red Blood Count 3.21 10^6 /uL (3.70-4.87); Red Cell Distribution Width 18 % (10-15); White Blood Count 9.5 10^3/uL (3.5-10.8)
[2021-12-25] MEDS: CMCS: Lactase Enzyme (NF) 3,000 UNIT TAB PO SCH ×3 (10:11→20:28)
[2021-12-25] MEDS: Heparin DRIP 25,000 UNITS BAG 25,000 UNITS/500 ML BAG IV SCH (14:11)
[2021-12-25] MEDS ORDERED: fentaNYL 100 mcg/2 ml 50 MCG/ML VIAL IV PRN (15:29)
[2021-12-25] MEDS ORDERED: Naloxone 0.4 mg VIAL 0.4 mg/ml 1 ml VIAL IV PRN (15:29)
[2021-12-26] MEDS ORDERED: Lactated Ringers 1000 ml BAG 1,000 ML IV SCH (06:00)
[2021-12-26] MEDS ORDERED: Buffered Lidocaine 1% SYRIN 1 ml INTRADERM ONE (06:00)
[2021-12-26 06:06] LABS: ABS Lymphocytes 0.6 10^3/ul (1.0-4.8); ABS Monocytes 0.1 10^3/ul (0-0.8); ABS Neutrophils 6.8 10^3/ul (1.5-7.7); Hematocrit 32 % (35-47); Hemoglobin 10.5 g/dL (12.0-16.0); Lymphocyte % 8.4 %; Mean Corpuscular HGB Conc 33 g/dL (31-36); Mean Corpuscular Hemoglobin 30 pg (27-31); Mean Corpuscular Volume 89 fL (80-97); Mean Platelet Volume 6.8 fL (7.4-10.4); Nucleated Red Blood Cells % 0.3; Platelet Count 321 10^3/uL (150-450); Red Blood Count 3.54 10^6 /uL (3.70-4.87); Red Cell Distribution Width 18 % (10-15); White Blood Count 7.6 10^3/uL (3.5-10.8)
[2021-12-26 06:21] LABS: Calcium 8.9 mg/dL (8.6-10.3); Magnesium 1.8 mg/dL (1.9-2.7); Potassium 4.3 mmol/L (3.5-5.0); eGFR CKD-EPI 83.1 (>60)
[2021-12-26] MEDS ORDERED: Magnesium Sulfate 2 gm BAG 2 GM/50 ML BAG IVPB ONE (06:43)
[2021-12-26] MEDS: CMCS: Lactase Enzyme (NF) 3,000 UNIT TAB PO SCH ×3 (08:04→16:32)
[2021-12-26] MEDS ORDERED: Ondansetron 4 mg VIAL 2 MG/ML 2 ml VIAL ONE (11:50)
[2021-12-26] MEDS ORDERED: Propofol 10 MG/ML 20 ML BTL ONE (11:50)
[2021-12-26] MEDS ORDERED: Dexamethasone IV 4 MG/ML VIAL 1 ml VIAL ONE (11:50)
[2021-12-26] MEDS ORDERED: Glycopyrrolate IV 0.2 MG/ML 1 ML VIAL ONE (11:50)
[2021-12-26] MEDS ORDERED: Esmolol 10 MG/ML 10 ML (100 mg) ONE (11:51)
[2021-12-26] MEDS ORDERED: Lidocaine 2% PF 5 ML VIAL ONE (11:52)
[2021-12-26] MEDS ORDERED: Rocuronium 50 mg VIAL 10 mg/ml 5 ml VIAL (50 mg) ONE ×2 (13:48→13:54)
[2021-12-26] MEDS ORDERED: Sevoflurane BOTTLE ONE (13:49)
[2021-12-26] MEDS ORDERED: Succinylcholine 200 mg VIAL 20 mg/ml 10 ml VIAL (200 mg) ONE ×2 (13:54→14:34)
[2021-12-26] MEDS ORDERED: Iohexol 350 (CONTRAST) 200 ML MDV IV ONE (14:30)
[2021-12-26] MEDS ORDERED: Lidocaine 1% VIAL 10 MG/ML VIAL ONE (14:30)
[2021-12-26] MEDS ORDERED: Heparin 2 UNITS/ML IVPREMIX 3,000 UNIT/1,500 ML BAG IV ONE (14:31)
[2021-12-26] MEDS ORDERED: fentaNYL 100 mcg/2 ml 50 MCG/ML VIAL ONE (14:34)
[2021-12-26] MEDS ORDERED: Heparin 1,000 UNIT/ML 10 ml (10,000 UNITS) CATHLAB/DIALYSIS ONE (15:11)
[2021-12-26] MEDS ORDERED: Heparin 2 UNITS/ML IVPREMIX 2,000 UNIT/1,000 ML BAG IV ONE (16:01)
[2021-12-26] MEDS ORDERED: Phenylephrine IV 10 MG/ML 1 ml VIAL ONE (16:30)
[2021-12-26] MEDS ORDERED: Labetalol IV 5 MG/ML 20 ml VIAL IV PUSH PRN (17:24)
[2021-12-26] MEDS ORDERED: fentaNYL 100 mcg/2 ml 50 MCG/ML VIAL IV PRN (17:24)
[2021-12-26] MEDS ORDERED: Naloxone 0.4 mg VIAL 0.4 mg/ml 1 ml VIAL IV PRN (17:24)
[2021-12-27 04:02] LABS: ABS Basophils 0.1 10^3/ul (0-0.2); ABS Monocytes 1.1 10^3/ul (0-0.8); Hematocrit 29 % (35-47); Hemoglobin 9.4 g/dL (12.0-16.0); Lymphocyte % 6.3 %; Mean Corpuscular HGB Conc 33 g/dL (31-36); Mean Corpuscular Hemoglobin 29 pg (27-31); Mean Corpuscular Volume 89 fL (80-97); Mean Platelet Volume 6.5 fL (7.4-10.4); Platelet Count 318 10^3/uL (150-450); Red Blood Count 3.22 10^6 /uL (3.70-4.87); Red Cell Distribution Width 18 % (10-15); White Blood Count 15.2 10^3/uL (3.5-10.8)
[2021-12-27 04:58] LABS: Calcium 8.1 mg/dL (8.6-10.3); Magnesium 2.2 mg/dL (1.9-2.7); Potassium 4.1 mmol/L (3.5-5.0)
[2021-12-27 05:04] LABS: eGFR CKD-EPI 74.1 (>60)
[2021-12-27 08:02] LABS: Activated Partial Thrombo Time 50.7 seconds (26.0-38.0)
[2021-12-27] MEDS: CMCS: Lactase Enzyme (NF) 3,000 UNIT TAB PO SCH ×3 (10:29→16:58)
[2021-12-27 10:48] LABS: INR 1.03 (0.86-1.15)
[2021-12-28 06:17] LABS: ABS Eosinophils 0.1 10^3/ul (0-0.6); ABS Lymphocytes 1.7 10^3/ul (1.0-4.8); ABS Monocytes 0.8 10^3/ul (0-0.8); ABS Neutrophils 4.8 10^3/ul (1.5-7.7); Eosinophil % 0.9 %; Hematocrit 26 % (35-47); Hemoglobin 8.8 g/dL (12.0-16.0); Lymphocyte % 22.8 %; Mean Corpuscular HGB Conc 34 g/dL (31-36); Mean Corpuscular Hemoglobin 30 pg (27-31); Mean Corpuscular Volume 89 fL (80-97); Mean Platelet Volume 6.7 fL (7.4-10.4); Platelet Count 265 10^3/uL (150-450); Red Blood Count 2.93 10^6 /uL (3.70-4.87); Red Cell Distribution Width 18 % (10-15); White Blood Count 7.4 10^3/uL (3.5-10.8)
[2021-12-28 06:34] LABS: Activated Partial Thrombo Time 42.9 seconds (26.0-38.0); INR 1.02 (0.86-1.15)
[2021-12-28 06:45] LABS: Calcium 7.9 mg/dL (8.6-10.3); Magnesium 1.9 mg/dL (1.9-2.7); eGFR CKD-EPI 77.8 (>60)
[2021-12-28] MEDS ORDERED: Magnesium Sulfate IV 1GM/100ML 1 GM/100 ML BAG IV ONE (07:10)
[2021-12-28] MEDS: CMCS: Lactase Enzyme (NF) 3,000 UNIT TAB PO SCH ×4 (08:42→17:38)
[2021-12-28] MEDS: Heparin DRIP 25,000 UNITS BAG 25,000 UNITS/500 ML BAG IV SCH (15:36)
[2021-12-28] MEDS: Warfarin per PHARMACY **NOTE FOLLOW UP SCH (17:36)
[2021-12-28 17:46] LABS: Hematocrit 31 % (35-47); Hemoglobin 10.1 g/dL (12.0-16.0); Mean Corpuscular HGB Conc 33 g/dL (31-36); Mean Corpuscular Hemoglobin 30 pg (27-31); Mean Corpuscular Volume 91 fL (80-97); Mean Platelet Volume 6.7 fL (7.4-10.4); Platelet Count 317 10^3/uL (150-450); Red Blood Count 3.38 10^6 /uL (3.70-4.87); Red Cell Distribution Width 19 % (10-15); White Blood Count 8.6 10^3/uL (3.5-10.8)
[2021-12-29 06:37] LABS: Hematocrit 28 % (35-47); Hemoglobin 9.4 g/dL (12.0-16.0); Mean Corpuscular HGB Conc 34 g/dL (31-36); Mean Corpuscular Hemoglobin 30 pg (27-31); Mean Corpuscular Volume 91 fL (80-97); Platelet Count 271 10^3/uL (150-450); Red Blood Count 3.09 10^6 /uL (3.70-4.87); Red Cell Distribution Width 19 % (10-15); White Blood Count 7.3 10^3/uL (3.5-10.8)
[2021-12-29 06:40] LABS: Activated Partial Thrombo Time 47.8 seconds (26.0-38.0); INR 1.03 (0.86-1.15)
[2021-12-29 06:48] LABS: Calcium 8.2 mg/dL (8.6-10.3); Potassium 4.3 mmol/L (3.5-5.0); eGFR CKD-EPI 76.5 (>60)
[2021-12-29] MEDS: CMCS: Lactase Enzyme (NF) 3,000 UNIT TAB PO SCH ×3 (09:48→15:04)
[2021-12-29] MEDS: Warfarin DAILY REMINDER **NOTE FOLLOW UP SCH (17:24)
[2021-12-29] MEDS: Warfarin per PHARMACY **NOTE FOLLOW UP SCH (17:24)
[2021-12-30 06:57] LABS: Activated Partial Thrombo Time 49.4 seconds (26.0-38.0); INR 1.27 (0.86-1.15)
[2021-12-30] MEDS: Heparin DRIP 25,000 UNITS BAG 25,000 UNITS/500 ML BAG IV SCH (07:07)
[2021-12-30] MEDS: CMCS: Lactase Enzyme (NF) 3,000 UNIT TAB PO SCH ×3 (08:41→16:50)
[2021-12-30] MEDS: Warfarin DAILY REMINDER **NOTE FOLLOW UP SCH (16:53)
[2021-12-30] MEDS: Warfarin per PHARMACY **NOTE FOLLOW UP SCH (16:53)
[2021-12-31 06:19] LABS: Hematocrit 31 % (35-47); Hemoglobin 10.4 g/dL (12.0-16.0); Mean Corpuscular HGB Conc 34 g/dL (31-36); Mean Corpuscular Hemoglobin 31 pg (27-31); Mean Corpuscular Volume 90 fL (80-97); Mean Platelet Volume 6.4 fL (7.4-10.4); Platelet Count 301 10^3/uL (150-450); Red Blood Count 3.38 10^6 /uL (3.70-4.87); Red Cell Distribution Width 19 % (10-15)
[2021-12-31 06:20] LABS: ABS Basophils 0.1 10^3/ul (0-0.2); ABS Eosinophils 0.3 10^3/ul (0-0.6); ABS Lymphocytes 1.9 10^3/ul (1.0-4.8); ABS Monocytes 0.7 10^3/ul (0-0.8); ABS Neutrophils 5.1 10^3/ul (1.5-7.7); Eosinophil % 3.6 %
[2021-12-31 06:31] LABS: INR 2.19 (0.86-1.15)
[2021-12-31] MEDS: CMCS: Lactase Enzyme (NF) 3,000 UNIT TAB PO SCH ×2 (09:23→13:37)
[2021-12-31 10:39] LABS: Calcium 8.6 mg/dL (8.6-10.3); Potassium 3.7 mmol/L (3.5-5.0); eGFR CKD-EPI 80.4 (>60)
[2021-12-31 12:10] LABS: Magnesium 1.8 mg/dL (1.9-2.7)
[2021-12-31] MEDS ORDERED: Magnesium Sulfate 2 gm BAG 2 GM/50 ML BAG IVPB ONE (14:08)
[2021-12-31] MEDS ORDERED: Potassium Chlor 20 meq TAB.ER PO ONE (14:08)
[2021-12-31] MEDS: Warfarin DAILY REMINDER **NOTE FOLLOW UP SCH (18:04)
[2021-12-31] MEDS: Warfarin per PHARMACY **NOTE FOLLOW UP SCH (18:05)
[2022-01-01 06:06] LABS: INR 2.87 (0.86-1.15)
[2022-01-01 08:36] LABS: Calcium 8.8 mg/dL (8.6-10.3); Magnesium 2.1 mg/dL (1.9-2.7); Potassium 4.2 mmol/L (3.5-5.0); eGFR CKD-EPI 83.4 (>60)
[2022-01-01] MEDS: Warfarin DAILY REMINDER **NOTE FOLLOW UP SCH (16:08)
[2022-01-01] MEDS: Warfarin per PHARMACY **NOTE FOLLOW UP SCH (16:09)
[2022-01-01 16:42] LABS: Rapid COVID-19 Molecular Undetected (Undetected)
[2022-01-02 07:53] VITALS: BP 137/69
[2022-01-02 09:01] LABS: Hematocrit 34 % (35-47); Hemoglobin 11.1 g/dL (12.0-16.0); Mean Corpuscular HGB Conc 33 g/dL (31-36); Mean Corpuscular Hemoglobin 31 pg (27-31); Mean Corpuscular Volume 92 fL (80-97); Mean Platelet Volume 6.5 fL (7.4-10.4); Platelet Count 327 10^3/uL (150-450); Red Blood Count 3.63 10^6 /uL (3.70-4.87); Red Cell Distribution Width 20 % (10-15); White Blood Count 7.1 10^3/uL (3.5-10.8)
[2022-01-02 09:22] LABS: INR 2.34 (0.86-1.15)
== END 2022-01-02 13:30 | DRG 271 ==
LOC: ED 16:52 → EDHOLD 19:27 → SUATTDRO 19:27 → MEDTELE 22:45
PROVIDERS: ADMIT Internal Medicine; ATTEND Internal Medicine
PROC: ANG.PRO (2021-12-18 12:15)
PROC: O.GIEGD (2021-12-21 13:35)

== ENCOUNTER 2022-10-25 04:24 | Inpatient (IN) ==
[2022-10-25 04:54] LABS: ABS Eosinophils 0.1 10^3/ul (0-0.6); ABS Lymphocytes 1.1 10^3/ul (1.0-4.8); ABS Monocytes 0.8 10^3/ul (0-0.8); ABS Neutrophils 14.8 10^3/ul (1.5-7.7); Eosinophil % 0.7 %; Hematocrit 44 % (35-47); Hemoglobin 14.6 g/dL (12.0-16.0); Lymphocyte % 6.7 %; Mean Corpuscular HGB Conc 33 g/dL (31-36); Mean Corpuscular Hemoglobin 31 pg (27-31); Mean Corpuscular Volume 95 fL (80-97); Mean Platelet Volume 6.7 fL (7.4-10.4); Platelet Count 291 10^3/uL (150-450); Red Blood Count 4.67 10^6 /uL (3.70-4.87); Red Cell Distribution Width 14 % (10-15); White Blood Count 16.9 10^3/uL (3.5-10.8)
[2022-10-25 05:00] LABS: INR 1.88 (0.88-1.18)
[2022-10-25 05:29] LABS: Albumin 3.1 g/dL (3.2-5.2); Albumin/Globulin Ratio 1.8 (1-3); C Reactive Protein 8.64 mg/L (<8.01); Calcium 7.2 mg/dL (8.6-10.3); Creatinine, Serum 0.71 mg/dL (0.51-0.95); Globulin 1.7 g/dL (2-4); Magnesium 1.4 mg/dL (1.9-2.7); Phosphorus 2.7 mg/dL (2.5-5.0); Total Bilirubin 0.3 mg/dL (0.2-1.0); Total Protein 4.8 g/dL (6.4-8.9); eGFR CKD-EPI 81.2 (>60)
[2022-10-25] MEDS ORDERED: Magnesium Sulfate 2 gm BAG 2 GM/50 ML BAG IVPB ONE ×2 (05:40→10:14)
[2022-10-25] MEDS ORDERED: Ondansetron 4 mg VIAL 2 MG/ML 2 ml VIAL IV ONE (05:41)
[2022-10-25] MEDS ORDERED: Lactated Ringers 1000 ml BAG 1,000 ML IV ONE ×2 (05:41→11:58)
[2022-10-25 06:42] LABS: High Sensitivity Troponin 1 Hr 9 pg/mL (<15)
[2022-10-25 07:16] LABS: Urine Appearance Cloudy; Urine Bilirubin Negative (Negative); Urine Blood 2+ (Negative); Urine Color Yellow; Urine Glucose Negative (Negative); Urine Ketones Negative (Negative); Urine Nitrite Positive (Negative); Urine Protein 1+(30 mg/dL) (Negative); Urine Specific Gravity 1.017 (1.002-1.030); Urine Urobilinogen Negative (Negative)
[2022-10-25 07:32] LABS: Urine Bacteria 1+ (Absent); Urine Red Blood Cell 3+(>10/hpf) (Absent); Urine White Blood Cell 3+(>20/hpf) (Absent)
[2022-10-25] MEDS ORDERED: Piperacillin/Tazobac ADVAN 3.375 GM in NS 0.9% 100 ml BAG 100 ML IV ONE (09:07)
[2022-10-25] MEDS ORDERED: ceFAZolin 1 GM ADVAN 1 GM in NS 0.9% 50 ML 50 ML IVPB ONE (09:09)
[2022-10-25] MEDS ORDERED: ceFAZolin 1 GM ADVAN 1 GM ADDV.VIAL IVPB ONE (09:11)
[2022-10-25] MEDS: KCL 20 MEQ/100 ML IVPREMIX 20 MEQ/100 ML BAG IV SCH ×2 (09:20→10:55)
[2022-10-25] MEDS ORDERED: Polyethylene Glycol 3350 17 GM PACKET PO PRN (10:57)
[2022-10-25] MEDS ORDERED: Potassium Chlor 20 meq TAB.ER PO ONE (11:00)
[2022-10-25] MEDS ORDERED: ALUM MAG HYDROXIDE SIMETH PO PRN (11:31)
[2022-10-25] MEDS ORDERED: Albuterol HFA INHALER 8 gm MDI INH PRN (11:31)
[2022-10-25] MEDS ORDERED: [UNRECOGNIZED DRUG - OTHER] PO PRN (11:31)
[2022-10-25] MEDS ORDERED: Warfarin per PHARMACY **NOTE FOLLOW UP SCH (12:00)
[2022-10-25] MEDS: cefTRIAXone 1 gm/50 mL D5W 1 GM/50 ML BAG IV SCH (16:37)
[2022-10-25] MEDS: Lactase Enzyme (NF) 3,000 UNIT TAB PO SCH (16:38)
[2022-10-25] MEDS ORDERED: NS 0.9% 500 ml BAG 500 ML IV ONE (18:26)
[2022-10-25] MEDS: Ondansetron 4 mg VIAL 2 MG/ML 2 ml VIAL IV PRN (21:00)
[2022-10-26 06:10] LABS: ABS Lymphocytes 0.7 10^3/ul (1.0-4.8); ABS Monocytes 1.1 10^3/ul (0-0.8); ABS Neutrophils 13.3 10^3/ul (1.5-7.7); Hematocrit 40 % (35-47); Hemoglobin 13.5 g/dL (12.0-16.0); Lymphocyte % 4.5 %; Mean Corpuscular HGB Conc 34 g/dL (31-36); Mean Corpuscular Hemoglobin 32 pg (27-31); Mean Corpuscular Volume 94 fL (80-97); Platelet Count 257 10^3/uL (150-450); Red Blood Count 4.26 10^6 /uL (3.70-4.87); Red Cell Distribution Width 14 % (10-15); White Blood Count 15.1 10^3/uL (3.5-10.8)
[2022-10-26 06:22] LABS: INR 2.3 (0.88-1.18)
[2022-10-26 06:23] LABS: Calcium 8.1 mg/dL (8.6-10.3); Creatinine, Serum 0.7 mg/dL (0.51-0.95); Magnesium 2.1 mg/dL (1.9-2.7); Potassium 3.9 mmol/L (3.5-5.0); eGFR CKD-EPI 82.6 (>60)
[2022-10-26] MEDS: Lactase Enzyme (NF) 3,000 UNIT TAB PO SCH ×3 (08:23→16:31)
[2022-10-26 13:05] LABS: Osmolality Serum 276 mOsm/kg (275-295)
[2022-10-26] MEDS ORDERED: Sulfur Hexaflouride MICROSPHR 25 MG VIAL ONE (14:54)
[2022-10-26] MEDS: cefTRIAXone 1 gm/50 mL D5W 1 GM/50 ML BAG IV SCH (16:29)
[2022-10-26] MEDS ORDERED: Diatrizoate Meg/Sod(CONTRAST) 30 ML ORAL.SOLN PO ONE (19:33)
[2022-10-26] MEDS ORDERED: Iohexol 300 (CONTRAST) 10 ML SDV IV ONE (20:20)
[2022-10-27 06:24] LABS: ABS Lymphocytes 1.1 10^3/ul (1.0-4.8); ABS Monocytes 0.9 10^3/ul (0-0.8); ABS Neutrophils 8.8 10^3/ul (1.5-7.7); Eosinophil % 0.1 %; Hematocrit 36 % (35-47); Hemoglobin 12.6 g/dL (12.0-16.0); Mean Corpuscular HGB Conc 35 g/dL (31-36); Mean Corpuscular Hemoglobin 33 pg (27-31); Mean Corpuscular Volume 92 fL (80-97); Mean Platelet Volume 6.5 fL (7.4-10.4); Platelet Count 217 10^3/uL (150-450); Red Blood Count 3.86 10^6 /uL (3.70-4.87); Red Cell Distribution Width 14 % (10-15); White Blood Count 10.8 10^3/uL (3.5-10.8)
[2022-10-27 06:31] LABS: INR 3.32 (0.88-1.18)
[2022-10-27 07:06] LABS: Calcium 8.2 mg/dL (8.6-10.3); Creatinine, Serum 0.57 mg/dL (0.51-0.95); Magnesium 1.9 mg/dL (1.9-2.7); Potassium 3.6 mmol/L (3.5-5.0); eGFR CKD-EPI 86.8 (>60)
[2022-10-27] MEDS: Lactase Enzyme (NF) 3,000 UNIT TAB PO SCH ×3 (08:24→17:13)
[2022-10-27] MEDS: cefTRIAXone 1 gm/50 mL D5W 1 GM/50 ML BAG IV SCH (15:38)
[2022-10-27] MEDS ORDERED: Warfarin - No Order Today **NOTE FOLLOW UP ONE (17:00)
[2022-10-27] MEDS: Ondansetron 4 mg VIAL 2 MG/ML 2 ml VIAL IV PRN (17:15)
[2022-10-28 09:31] LABS: INR 3.1 (0.88-1.18)
[2022-10-28 11:05] LABS: ABS Eosinophils 0.1 10^3/ul (0-0.6); ABS Lymphocytes 0.7 10^3/ul (1.0-4.8); ABS Monocytes 0.8 10^3/ul (0-0.8); Eosinophil % 0.9 %; Hematocrit 39 % (35-47); Hemoglobin 12.8 g/dL (12.0-16.0); Lymphocyte % 9.1 %; Mean Corpuscular HGB Conc 33 g/dL (31-36); Mean Corpuscular Hemoglobin 31 pg (27-31); Mean Corpuscular Volume 94 fL (80-97); Mean Platelet Volume 7.2 fL (7.4-10.4); Nucleated Red Blood Cells % 0.1; Platelet Count 234 10^3/uL (150-450); Red Blood Count 4.17 10^6 /uL (3.70-4.87); Red Cell Distribution Width 15 % (10-15); White Blood Count 7.5 10^3/uL (3.5-10.8)
[2022-10-28] MEDS: Lactase Enzyme (NF) 3,000 UNIT TAB PO SCH ×3 (11:10→15:59)
[2022-10-28 11:14] LABS: Calcium 8.4 mg/dL (8.6-10.3); Creatinine, Serum 0.5 mg/dL (0.51-0.95); Magnesium 1.7 mg/dL (1.9-2.7); Potassium 3.7 mmol/L (3.5-5.0); eGFR CKD-EPI 89.6 (>60)
[2022-10-28] MEDS ORDERED: Potassium Chlor 20 meq TAB.ER PO ONE (15:23)
[2022-10-28] MEDS ORDERED: Magnesium Sulfate 2 gm BAG 2 GM/50 ML BAG IVPB ONE (15:23)
[2022-10-28] MEDS: Nystatin SUSPENSION 100,000 UNITS/ML UDC PO SCH ×2 (16:00→21:49)
[2022-10-28] MEDS ORDERED: Warfarin - No Order Today **NOTE FOLLOW UP ONE (17:00)
[2022-10-28] MEDS: cefTRIAXone 1 gm/50 mL D5W 1 GM/50 ML BAG IV SCH (17:40)
[2022-10-29] MEDS: Ondansetron 4 mg VIAL 2 MG/ML 2 ml VIAL IV PRN ×2 (01:43→08:43)
[2022-10-29 06:52] LABS: INR 3.11 (0.88-1.18)
[2022-10-29 07:07] LABS: Calcium 8.2 mg/dL (8.6-10.3); Creatinine, Serum 0.54 mg/dL (0.51-0.95); Magnesium 1.9 mg/dL (1.9-2.7); Potassium 3.7 mmol/L (3.5-5.0)
[2022-10-29] MEDS: Lactase Enzyme (NF) 3,000 UNIT TAB PO SCH ×3 (08:39→17:42)
[2022-10-29] MEDS: Nystatin SUSPENSION 100,000 UNITS/ML UDC PO SCH ×4 (08:40→20:12)
[2022-10-29] MEDS: Al Hydrox/Mg Hydrox/Simet LIQ 30 ML UDC PO PRN (15:34)
[2022-10-29] MEDS: Lactated Ringers 1000 ml BAG 1,000 ML IV SCH (15:54)
[2022-10-29] MEDS ORDERED: Warfarin - No Order Today **NOTE FOLLOW UP ONE (17:00)
[2022-10-30] MEDS: Lactated Ringers 1000 ml BAG 1,000 ML IV SCH (05:08)
[2022-10-30 05:44] LABS: INR 2.94 (0.88-1.18)
[2022-10-30] MEDS: Nystatin SUSPENSION 100,000 UNITS/ML UDC PO SCH ×4 (09:28→21:44)
[2022-10-30] MEDS: Lactase Enzyme (NF) 3,000 UNIT TAB PO SCH ×3 (09:28→17:45)
[2022-10-30] MEDS: Al Hydrox/Mg Hydrox/Simet LIQ 30 ML UDC PO PRN (09:52)
[2022-10-30] MEDS ORDERED: Warfarin - No Order Today **NOTE FOLLOW UP ONE (17:00)
[2022-10-31] MEDS: Lactase Enzyme (NF) 3,000 UNIT TAB PO SCH ×2 (09:13→12:20)
[2022-10-31] MEDS: Nystatin SUSPENSION 100,000 UNITS/ML UDC PO SCH ×2 (09:57→12:27)
[2022-10-31 10:28] LABS: Rapid COVID-19 Molecular Undetected (Undetected)
[2022-10-31 10:35] VITALS: BP 167/97
== END 2022-10-31 13:45 | DRG 872 ==
LOC: EDHOLD 04:24 → ED 04:24 → SUATTDRO 10:03 → MEDTELE 13:57 → SUATTDRO 10-26 16:00
PROVIDERS: ADMIT Internal Medicine; ATTEND Internal Medicine